=== PATIENT | male | born 1955 | race Caucasian/White ===

== ENCOUNTER → 2019-12-02 17:06 | Outpatient (CLI) | payer OTHER, SELFPAY | PROVIDERS: PCP Internal Medicine; Visit Provider Nurse Practitioner Primary Care | DX: Z03.818 Encounter for observation for suspected exposure to other biological agents ruled out (principal) | CPT/HCPCS: 87635; C9803; U0003 ==

== ENCOUNTER 2023-07-18 21:58 | Inpatient (IN) | payer MEDICARE, OTHER, SELFPAY ==
[2023-07-18] VITALS (12 sets, daily range): BP systolic 124–167; BP diastolic 56–64; PULSE 95–107; RESP 18–39; TEMP 36.8–38.1; O2SAT 85–93; BMI 29.2
--- NOTE | 2023-07-18 22:35 | EKG12_ITS ---
Test Reason : SOB Blood Pressure : / mmHG Vent. Rate : 097 BPM Atrial Rate : 097 BPM P-R Int : 160 ms QRS Dur : 108 ms QT Int : 408 ms P-R-T Axes : 031 020 041 degrees QTc Int : 518 ms Normal sinus rhythm Incomplete right bundle branch block Prolonged QT Abnormal ECG When compared with ECG of 17-JUN-2016 12:02, Vent. rate has increased BY 46 BPM Incomplete right bundle branch block is now Present QT has lengthened Confirmed by MARKUS GARCIA, BRAYAN ([id number]), advertising editor SRINATH CISNEROS ([id number]) on 07/23/2023 11:44:55 AM Referred By: Confirmed By:BRAYAN APARICIO MD
[2023-07-18] MEDS: Ipratropium/Albuterol Sulfate 3 ML AMPUL.NEB INHALATION (22:37)
[2023-07-18] MEDS: Albuterol 2.5 MG/3 ML VIAL.NEB. INHALATION ×2 (22:37)
[2023-07-18] MEDS: Acetaminophen 500 MG Tablet 1000 MG PO (22:40)
[2023-07-18] MEDS: Ceftriaxone 1 GM/50 ML BAG IV (22:54)
[2023-07-18 23:01] LABS: Absolute Lymphocyte Count 0.62 X10^3/uL (0.83-4.51); Absolute Neutrophil Count 27.8 X10^3/uL (2.0-7.7); Basophil# 0.14 X10^3/uL; Basophil% 0.5 % (0-1); Eosinophil# 0.02 X10^3/uL; Eosinophils% 0.1 % (0-5); Hematocrit 38.3 % (40-54); Hemoglobin 13.3 g/dL (13.0-16.5); Lymphocyte # 0.62 X10^3/ul (0.83-4.51); Lymphocyte % 2.1 % (19-41); Mean Corp Hgb Conc 34.7 g/dL (32-36); Mean Corpuscular Hgb 33.2 pg (27.0-32.0); Mean Corpuscular Volume 95.5 fL (80-94); Mean Platelet Vol. 10.3 fl (6.2-12.0); Monocyte# 0.45 X10^3/uL; Monocyte% 1.5 % (0-10); NRBC Flagged by Analyzer 0 % (0-5); Neutrophil # 27.84 X10^3/uL (2.7-7.7); Neutrophil % 94.4 % (47-70); POSITIVE DIFFERENTIAL YES; POSITIVE MORPHOLOGY YES; Platelet Count 355 K/mm3 (150-450); RBC Distribution Width CV 12.5 % (11.6-14.6); RBC Distribution Width SD 44.4 fl (35.1-43.9); Red Blood Count 4.01 M/mm3 (4.6-6.2); White Blood Count 29.5 K/mm3 (4.4-11.0)
[2023-07-18 23:08] LABS: Anion Gap 11 (5-15); BUN 27 mg/dL (7-18); BUN/Creat Ratio 24.8 RATIO (10-20); Calcium,Total 8.1 mg/dL (8.5-10.1); Chloride 93 mmol/L (98-107); Creatinine, Serum 1.09 mg/dL (0.70-1.30); EST Glomerular Filtration Rate 71 mL/min (>60); Est Glom Filt Rate - Afr Amer 86 mL/min (>60); Estimated Creatinine Clearance 76.39 ml/min; Glucose 128 mg/dL (74-106); Magnesium 2.9 mg/dL (1.6-2.6); Potassium 3.3 mmol/L (3.5-5.1); Sodium Level 130 mmol/L (136-145)
--- NOTE | 2023-07-18 23:08 | EX.ED.DYSGE1 ---
HPI History of Present Illness Chief Complaint: Fever Informant: patient and spouse/S.O. Narrative Narrative: Patient is a 68-year-old male with past medical history of hypertension BPH paroxysmal atrial fibrillation currently on Eliquis. He and states they recently traveled to and from [place] by plane and after doing so both picked up a cold. states that she is dealt with her as relatively well and has been having spontaneous improvement. However over the past 10 days the patient's congestion and cough and symptoms seem to be steadily worsening. They went to an urgent care a few days ago and reportedly had COVID and flu test which were negative. Despite giving the symptoms a few more days to improve they have worsened to the point where he has fever and fatigue and shortness of breath and secondary to this he comes in for evaluation Patient denies any history of lung disorder or need for supplemental oxygen [facility] Medical History (Updated 07/19/23 @ 00:[address] Omero Johnson, DO) Atrial fibrillation BPH (benign prostatic hyperplasia) GERD (gastroesophageal reflux disease) Hyperlipidemia Hypertension Inguinal hernia Home Medications tamsulosin 0.4 mg capsule 0.4 mg PO BID 06/05/16 [History Last Taken 06/16/16] amlodipine 10 mg tablet 10 mg PO DAILY 07/18/23 [History Last Taken Unknown] losartan 50 mg tablet 50 mg PO DAILY 07/18/23 [History Last Taken Unknown] tadalafil 20 mg tablet 20 mg PO DAILY PRN BPH 07/18/23 [History Last Taken Unknown] Allergy/AdvReac Type Severity Reaction Status Date / Time No Known Allergies Allergy Verified 07/18/23 21:59 Surgical History (Updated 07/18/23 @ 23:25 by Shine Moeller) H/O cardiac radiofrequency ablation Social History Smoking Status: Former smoker ROS ROS ED Constitutional Constitutional ED: Reports chills and fever(s) Eyes Eyes: Denies change in vision ENT ENT ED: Reports rhinorrhea and sore throat Cardiovascular Cardiovascular: Reports racing heartbeat; Denies chest pain Respiratory/Chest Respiratory/Chest: Reports cough and dyspnea Gastrointestinal Gastrointestinal: Denies abdominal pain, diarrhea, nausea or vomiting Genitourinary Genitourinary ED: Denies dysuria Musculoskeletal Musculoskeletal: Reports myalgias Integumentary Denies rash Neurologic Neurologic: Reports weakness; Denies headache(s) Hematologic/Lymphatic Hematologic/Lymphatic: Reports easy bleeding and easy bruising EXAM Physical Exam Const Vital Signs: 07/18/23 21:59 07/18/23 22:08 07/18/23 22:08 Temperature 99.5 F H 98.2 F Temperature Source Temporal Oral Pulse Rate 102 H 97 Respiratory Rate 18 39 H Respiratory Effort Short of Breath Labored Respiratory Pattern Tachypnea Blood Pressure 159/58 H 167/64 H Blood Pressure Mean 91 98 Pulse Ox 85 93 Oxygen Delivery Method Room Air Non-Rebreather Oxygen Flow Rate (L/min) 15 07/18/23 22:13 07/18/23 22:37 07/18/23 23:03 Temperature 100.6 F H Temperature Source Oral Pulse Rate 107 H 103 H Respiratory Rate 25 H 29 H Respiratory Effort Respiratory Pattern Blood Pressure 164/62 H 133/58 H Blood Pressure Mean 96 83 Pulse Ox 93 92 92 Oxygen Delivery Method Nasal Cannula High Flow High Flow Oxygen Flow Rate (L/min) 6 07/19/23 00:00 07/19/23 00:16 07/18/23 22:25 Temperature 99.3 F H 99.3 F H Temperature Source Oral Pulse Rate 92 92 101 H Respiratory Rate 25 H 26 H 20 H Respiratory Effort Respiratory Pattern Blood Pressure 135/62 H 135/67 H Blood Pressure Mean 86 89 Pulse Ox 94 92 Oxygen Delivery Method High Flow Oxygen Flow Rate (L/min) 07/18/23 22:32 Temperature Temperature Source Pulse Rate Respiratory Rate Respiratory Effort Respiratory Pattern Blood Pressure Blood Pressure Mean Pulse Ox 93 Oxygen Delivery Method High Flow Oxygen Flow Rate (L/min) 10 Positive well nourished and well developed General Appearance ED: well developed; Negative for pallor HEENT Reports dry mucous membranes HEENT Narrative: Mucous membranes are dry and tacky No tongue or lip swelling no oral lesions no airway edema or compromise No findings to suggest infection in the posterior pharynx Mouth ED: Yes dry mucous membranes Mouth: dry mucous membranes Eyes PERRL and EOMs intact bilaterally General Eye ED: Negative for pale conjunctiva or scleral icterus Neck supple and no JVD Neck Narrative: No nuchal rigidity or meningeal signs noted Chest Wall palpation of chest normal Chest Narrative: No bony deformity or crepitance with palpation of the chest wall Resp Resp Narrative: Patient is in respiratory distress with tachypnea and accessory muscle use Breath sounds are severely diminished throughout there is rhonchi noted in the bilateral bases slightly greater on the right Cardio regular rhythm Rate: tachycardic and other Other Details: Tachycardic rate with regular rhythm Radial and carotid pulses are equal and symmetric GI normal to inspection, nondistended, normoactive bowel sounds, non-tender, non-distended and no masses GI Narrative: No voluntary guarding or rigidity No pulsatile mass or fluid wave noted Auscultation: normoactive bowel sounds Palpation: soft Extremity Extremity Narrative: Right lower extremity is slightly swollen when compared to the left however negative Homans' sign bilaterally There is just trace pitting edema bilaterally as well Neuro oriented x3, CN's II-XII intact bilaterally and no sensory deficits noted Sensorium / Orientation: alert Motor Exam: strength 5/5 throughout Psych mental status grossly normal Skin no rashes or lesions noted and No no wounds General Skin Exam: Negative for jaundice or pallor MDM MDM MDM Narrative Medical decision making narrative: Patient arrived to the ER febrile and hypoxic with a room air pulse ox of 85%. He states he does not have a history of lung pathology such as COPD or emphysema nor does he have any need for supplemental oxygen at home. With his report of 10 days of flulike symptoms there is concern that he has developed pneumonia which is leading to acute respiratory failure with hypoxia and sepsis. As he has recent travel to and from [place] and is no longer taking his Eliquis there is also concern for potential pulmonary embolus. There are no overt external findings of heart failure but that is also a differential based on his hypoxia and shortness of breath. He also is not pale and denies any blood per rectum or urine but there is concern for acute blood loss anemia leading to his symptoms. As most likely cause is sepsis from a respiratory source patient had blood cultures obtained and was started on Rocephin and Zithromax as he has high likelihood of community-acquired pneumonia and denies any hospitalization in the last 180 days. Patient was placed on high flow nasal cannula and his pulse ox improved to 92 to 94%. Tylenol was given and his temperature reduced. Laboratory studies confirm septic changes with a white count of 29 as well as elevated lactic acid. CTA revealed no PE or dissection but did show multifocal pneumonia. At this time with persistent hypoxia and septic changes he will need admitted to the hospital for continued treatment. However as he is not hypotensive he does not require a central line or vasopressors History & Record Review Discussion w/independent historian: Patient and Significant other Lab Data Attestation: I reviewed the patient's lab results. Labs: Laboratory Results - last 24 hr 07/18/23 22:11 WBC 29.5 H RBC 4.01 L Hgb 13.3 Hct 38.3 L MCV 95.5 H MCH 33.2 H MCHC 34.7 RDW Std Deviation 44.4 H RDW Coeff of Jose F 12.5 Plt Count 355 MPV 10.3 Immature Gran % (Auto) 1.400 H Neut % (Auto) 94.4 H Lymph % (Auto) 2.1 L Ford % (Auto) 1.5 Eos % (Auto) 0.1 Baso % (Auto) 0.5 Absolute Neuts (auto) 27.8 H Absolute Lymphs (auto) 0.62 L Nucleated RBC % 0 Differential Comment SCANNED Diff Path Review July foll PT 17.2 H INR 1.4 APTT 32.2 Sodium 130 L Potassium 3.3 L Chloride 93 L Carbon Dioxide 26.0 Anion Gap 11 BUN 27 H Creatinine 1.09 Estim Creat Clear Calc 76.39 Est GFR (MDRD) Af Amer 86 Est GFR (MDRD) Non-Af 71 BUN/Creatinine Ratio 24.8 H Glucose 128 H Lactic Acid 2.1 H* Calcium 8.1 L Magnesium 2.9 H B-Natriuretic Peptide 16.2 Management Discussion w/another healthcare provider: Hospitalist Critical Care Time Critical Care Time: Yes Critical care time (excluding procedures): Discussing w/Patient &/or Family/Mechanical Integrity Specialist and - (Critical care time of 31 minutes) Discharge Plan Dx/Rx/DC Orders Clinical Impression: Pneumonia due to respiratory syncytial virus (RSV), Acute and chronic respiratory failure with hypoxia, Sepsis, Benign prostatic hyperplasia, Hypertension Disposition Disposition: Acute Care Hospital [facility]
[2023-07-18 23:12] LABS: Lactic Acid 2.1 mmol/L (0.4-1.9)
[2023-07-18 23:18] LABS: Differential Comment SCANNED; Differential Indicated SCAN CRITERIA MET; International Normalized Ratio 1.4; Prothrombin Time (Protime)PT. 17.2 SECONDS (11.7-14.9)
[2023-07-18 23:19] LABS: Partial Thromboplast Time 32.2 Seconds (24.1-36.2)
[2023-07-18] MEDS: 0.9% Normal Saline (1000mL) 1,000 ML 999 ML IV (23:21)
[2023-07-18] MEDS: Azithromycin 500 MG in Dextrose 5%-Water (250mL Bag) 250 ML 250 MG IV (23:21)
[2023-07-18 23:27] LABS: BNP,B-Type NATRIURETIC PEPTIDE 16.2 pg/mL (0-100)
--- NOTE | 2023-07-18 23:50 | CT_ITS ---
STUDY: CTA CHEST REASON FOR EXAM: Male, 68 years old. hypoxia RADIATION DOSAGE (If Supplied By Facility): CTDIvol = ( 12.25 ) mGy, DLP = ( 517.39 ) mGycm TECHNIQUE: The examination was performed with the intravenous administration of IV 100mL Isovue-370. Post-processing of the angiographic images was performed, with multiplanar reformation and 3D reconstruction. Individualized dose optimization techniques were used for this CT. COMPARISON: No relevant prior comparison study available FINDINGS: Normal enhancement of the main pulmonary artery and right and left pulmonary arteries. Normal enhancement of the bilateral peripheral pulmonary arteries. There is no demonstrated pulmonary embolism. Normal thoracic aorta and visualized great vessels. There is no demonstrated aortic dissection. Normal heart and pericardium. Moderate enlargement of the mediastinal and hilar lymph nodes may represent reactive lymphoid hyperplasia. Normal visualized trachea and bronchi. The lungs are well expanded. Patchy airspace opacities are seen in both lungs suggesting bilateral pneumonia. Normal pleura. Normal chest wall structures. Normal osseous structures. Normal visualized upper abdomen. CT/CTA Chest W/WO Contrast IMPRESSION: Bilateral pneumonia. No demonstrated pulmonary embolism or arterial dissection. Electronically Signed: Ana Kearns MD at 1:23 EDT ,
[2023-07-19] VITALS (37 sets, daily range): BP systolic 113–176; BP diastolic 54–89; PULSE 74–98; RESP 14–41; TEMP 36.3–37.5; O2SAT 88–97; BMI 29.1; BMI 29.2
[2023-07-19] MEDS: 0.9% Normal Saline (1000mL) 1,000 ML 999 ML IV ×2 (00:14)
--- NOTE | 2023-07-19 00:25 | PCM.HP.STD ---
HPI - General General Date of Admission: 07/19/23 Date of Service: 07/19/23 Chief Complaint: Worsening shortness of breath and fatigue HPI Narrative GEORGE ANAND, is a 68 M who presented to [facility] ED on 07/19/2023 with worsening shortness of breath and fatigue. Saw patient at bedside in the ED, was present. Patient was sitting up fairly comfortably in bed but did appear quite fatigued. He had mild increased work of breathing noted on 15 L high flow nasal cannula with oxygen saturations in the low 90s. He had a few episodes of coughing spells with no sputum production during our encounter. He otherwise was answering questions appropriately and conversing normally. Patient is generally in good health at baseline. He and his recently traveled to and from [place] by plane. They both began to experience URI symptoms a few days after arriving back here. She had spontaneous improvement but he continued to have worsening congestion and cough. They went to urgent care few days ago and he reportedly had a negative COVID and flu test there. He was started on Mucinex and sent home. His symptoms continue to worsen and he developed mild fevers with worsening shortness of breath with exertion and came to the ED today for further evaluation. Labs in the ED were significant for WBC count 29, sodium 130, potassium 3.3, chloride 93, creatinine 1.09 (around baseline), lactate 2.1, T. bili 1.50, direct bili 1.04, AST 186, ALT 138, alk phos 131, albumin 1.9, procalcitonin elevated at 3.10. CTA chest showed no PE but did demonstrate a significant bilateral pneumonia with fairly severe airspace disease. Was found to be positive for RSV. Patient remained normotensive and with normal sinus rhythm in the 80s to 90s. However, he did have significant hypoxia on arrival and is requiring high flow nasal cannula as noted above, with respiration rate consistently in the 20s to low 30s. Given his acute hypoxic respiratory failure secondary to both RSV and suspected bacterial pneumonia, patient was admitted for further management. Patient has a history of BPH with obstructive symptoms, is on daily Flomax. He and noted that his urine output has been decreased recently. He denies any suprapubic pain or discomfort. On arrival to the ICU he was found on bladder scan to have about 700 cc of urine in the bladder. He attempted to urinate on his own but only got out about 100 cc, so Garcia catheter was placed with about 625 cc of fairly dark-colored urine out shortly after placement. Importantly, Legionella urine antigen was positive. [facility] Medical History (Updated 07/19/23 @ 05:[address] Geraldo Jackson, DO) Atrial fibrillation BPH (benign prostatic hyperplasia) GERD (gastroesophageal reflux disease) Hyperlipidemia Hypertension Inguinal hernia Home Medications tamsulosin 0.4 mg capsule 0.4 mg PO BID 06/05/16 [History Last Taken 06/16/16] amlodipine 10 mg tablet 10 mg PO DAILY 07/18/23 [History Last Taken Unknown] losartan 50 mg tablet 50 mg PO DAILY 07/18/23 [History Last Taken Unknown] tadalafil 20 mg tablet 20 mg PO DAILY PRN BPH 07/18/23 [History Last Taken Unknown] Allergy/AdvReac Type Severity Reaction Status Date / Time No Known Allergies Allergy Verified 07/18/23 21:59 Surgical History H/O cardiac radiofrequency ablation Social History Smoking Status: Former smoker ROS Constitutional Constitutional: Reports chills, fatigue, fever(s) and malaise Eyes Eyes: Denies change in vision ENT HEENT: Reports nasal congestion, sinus pressure and sore throat Cardiovascular Cardiovascular: Reports dyspnea on exertion; Denies chest pain, rapid heart rate or syncope Respiratory/Chest Respiratory/Chest: Reports cough, shortness of breath at rest and shortness of breath with exertion; Denies productive cough or wheezing Gastrointestinal Gastrointestinal: Reports nausea; Denies abdominal pain, constipation, diarrhea or vomiting Genitourinary Genitourinary: Reports difficulty urinating and urinary hesitancy; Denies dysuria or hematuria Neurologic Neurologic: Denies focal weakness, headache(s), numbness or paresthesias Vital Signs Vital Signs Vital Signs: 07/18/23 21:59 07/18/23 22:08 07/18/23 22:08 Temperature 99.5 F H 98.2 F Temperature Source Temporal Oral Pulse Rate 102 H 97 Respiratory Rate 18 39 H Respiratory Effort Short of Breath Labored Respiratory Pattern Tachypnea Blood Pressure 159/58 H 167/64 H Blood Pressure Mean 91 98 Pulse Ox 85 93 Oxygen Delivery Method Room Air Non-Rebreather Oxygen Flow Rate (L/min) 15 07/18/23 22:13 07/18/23 22:37 07/18/23 23:03 Temperature 100.6 F H Temperature Source Oral Pulse Rate 107 H 103 H Respiratory Rate 25 H 29 H Respiratory Effort Respiratory Pattern Blood Pressure 164/62 H 133/58 H Blood Pressure Mean 96 83 Pulse Ox 93 92 92 Oxygen Delivery Method Nasal Cannula High Flow High Flow Oxygen Flow Rate (L/min) 6 07/19/23 00:00 07/19/23 00:16 07/18/23 22:25 Temperature 99.3 F H 99.3 F H Temperature Source Oral Pulse Rate 92 92 101 H Respiratory Rate 25 H 26 H 20 H Respiratory Effort Respiratory Pattern Blood Pressure 135/62 H 135/67 H Blood Pressure Mean 86 89 Pulse Ox 94 92 Oxygen Delivery Method High Flow Oxygen Flow Rate (L/min) 07/18/23 22:32 Temperature Temperature Source Pulse Rate Respiratory Rate Respiratory Effort Respiratory Pattern Blood Pressure Blood Pressure Mean Pulse Ox 93 Oxygen Delivery Method High Flow Oxygen Flow Rate (L/min) 10 Weight Weight: 95.2 kg Body Mass Index (BMI) 29.2 Physical Exam Const alert and oriented x3 Constitutional Narrative: Pleasant elderly male, sitting up fairly comfortably in bed but is very fatigued appearing, mild increased work of breathing noted on 15 L high flow nasal cannula, otherwise conversing normally. General Appearance: cooperative HEENT normocephalic, head/scalp atraumatic, hearing grossly normal bilaterally and nasal mucous membranes and turbinates normal HEENT Narrative: Dry mucous membranes. Eyes PERRL, EOMs intact bilaterally and conjunctivae normal Neck full ROM Chest inspection of chest normal Resp Resp Narrative: Mild increased work of breathing on 15 L high flow nasal cannula. Moderately decreased breath sounds bilaterally throughout, no wheezing noted. Cardio regular rate, regular rhythm, no murmurs and peripheral pulses 2+ throughout GI normal to inspection, nondistended, normoactive bowel sounds, soft to palpation, non-tender and non-distended Narrative: No suprapubic tenderness noted. Back/Spine normal ROM Extremity normal to inspection, full ROM and no pedal edema Skin no rashes or lesions noted Neuro moves all extremities and no focal motor deficits Speech: speech normal Psych mental status grossly normal Results Lab / Micro Data 07/18/23 22:11 07/18/23 22:11 Labs: Laboratory Results - last 24 hr 07/18/23 22:11: WBC 29.5 H, RBC 4.01 L, Hgb 13.3, Hct 38.3 L, MCV 95.5 H, MCH 33.2 H, MCHC 34.7, RDW Std Deviation 44.4 H, RDW Coeff of Jose F 12.5, Plt Count 355, MPV 10.3, Immature Gran % (Auto) 1.400 H, Neut % (Auto) 94.4 H, Lymph % (Auto) 2.1 L, Coke % (Auto) 1.5, Eos % (Auto) 0.1, Baso % (Auto) 0.5, Absolute Neuts (auto) 27.8 H, Absolute Lymphs (auto) 0.62 L, Nucleated RBC % 0, Differential Comment SCANNED, Diff Path Review July, PT 17.2 H, INR 1.4, APTT 32.2, Sodium 130 L, Potassium 3.3 L, Chloride 93 L, Carbon Dioxide 26.0, Anion Gap 11, BUN 27 H, Creatinine 1.09, Estim Creat Clear Calc 76.39, Est GFR (MDRD) Af Amer 86, Est GFR (MDRD) Non-Af 71, BUN/Creatinine Ratio 24.8 H, Glucose 128 H, Lactic Acid 2.1 H*, Calcium 8.1 L, Magnesium 2.9 H, B-Natriuretic Peptide 16.2 Micro: Microbiology 07/18/23 22:44 Mucosa - Nose SARS-CoV-2, Influenza & RSV (PCR) - Final RSV Assessment & Plan Assessment/Plan (1) Acute hypoxic respiratory failure: (2) Legionella pneumonia: (3) RSV infection: (4) Elevated transaminase level: (5) Urinary retention: (6) Sepsis without septic shock: PLAN: Plan Patient is a 68-year-old male who presented [facility] ED on 07/19/2023 with worsening shortness of breath and fatigue. 1. Acute hypoxic respiratory failure secondary to pneumonia due to Legionella and RSV ? Admit under inpatient status to the ICU. Frequency Checker consulted. Legionella urination positive. Also RSV positive. Not on oxygen at baseline, was requiring up to 15 L high flow nasal cannula in the ED and was placed on BiPAP in the ICU with improvement in work of breathing. Clinical picture does fit well with Legionella pneumonia. Will treat with IV vancomycin and Levaquin for now. MRSA probe pending, if negative can discontinue the vancomycin. Wean supplemental oxygen as able. 2. Sepsis without shock ? Presumed secondary to pneumonia with respiratory failure as noted above. Met sepsis criteria on admission with temp 100.6 F, sinus tachycardia to 102, severe leukocytosis with WBC count 29, lactate 2.1 with presumed respiratory source. Given 3 L of IV normal saline in the ED. Blood pressures notably remained stable throughout but did have improvement in heart rate with IV fluids. Treating with IV vancomycin and Levaquin as noted above. Trend daily CBC. 3. Acute urinary retention, history of BPH with obstructive symptoms ? Patient follows with urology and had a UroLift procedure done within the last few years. Takes Flomax daily at home. Noticed decreased urine output recently, found on bladder scan here to have over 700 cc of urine and was only able to empty about 100 cc on his own so Garcia catheter was placed. Suspect acute retention is primarily secondary to sepsis as noted above. UA was fairly benign. Renal/bladder ultrasound ordered. Continue Garcia catheter for now, can likely plan for voiding trial prior to discharge. 4. Elevated transaminases ? T. bili 1.50, direct bili 1.04, AST 186, ALT 138, alk phos 131 on admit. Suspect secondary to Legionella pneumonia/legionnaires disease. Patient notably with no abdominal pain. Will order right upper quadrant ultrasound for further evaluation. Trend LFTs. Treating infection as noted above. 5. Mild hyponatremia ? Sodium 130 on admit. Suspect secondary to legionnaires disease along with recent poor p.o. intake. Given 3 L of IV normal saline in the ED. Repeat sodium 132. Hold on further IV fluids, encourage p.o. intake. Treating infection as noted above. Chronic medical conditions: ? Hypertension: Holding home amlodipine and losartan. ? History of A-fib s/p ablation: Previously on Eliquis and rate control agents, now off of both. Normal sinus rhythm noted on admit. DVT prophylaxis: Lovenox CODE STATUS: Full code, verified Expected disposition: Home, TBD Total clinical time spent by myself addressing the patient's medical issues, reviewing all the data, and collaborating with patient's care team: 75 minutes. Charges/Coding Visit Charges Inpatient E&M: 32575 Init Hosp L3
--- NOTE | 2023-07-19 00:46 | ED.RN ---
CALLED REPORT TO ICU NURSEDIMAS
--- NOTE | 2023-07-19 01:04 | ED.RN ---
patient coughed up pink sputum, doctor FIORELLA notified. instructed to stop 3rd liter of normal saline
[2023-07-19 01:14] LABS: AST(SGOT) 196 U/L (15-37); Alanine Aminotransfer ALT/SGPT 138 U/L (16-61); Albumin, Serum 1.9 g/dL (3.2-5.0); Alkaline Phosphatase 131 U/L (45-117); Bilirubin, Direct 1.04 mg/dL (0.00-0.30); Globulin 5.2 g/dL (2.2-4.2); Protein, Total 7.1 g/dL (6.4-8.2)
[2023-07-19 01:17] LABS: Osmolality, Serum 279 mOsm/KG (280-301)
[2023-07-19] MEDS: Piperacil/Tazobactam 4.5 GM in 0.9% Normal Saline (100mL MB+) 100 ML IV (01:41)
[2023-07-19] MEDS: 0.9% Saline Lock 10 ML Syringe IV ×4 (01:41→22:53)
[2023-07-19] MEDS: Vancomycin HCl 2,000 MG in 0.9% Normal Saline (500mL Bag) 500 ML 250 MG IV (02:15)
--- NOTE | 2023-07-19 02:21 | US_ITS ---
STUDY: RENAL ULTRASOUND - COMPLETE REASON FOR EXAM: Male, 68 years old. Urinary retention TECHNIQUE: Ultrasound evaluation of the kidneys was performed with real-time and static martin-scale imaging. COMPARISON: None. FINDINGS: RIGHT KIDNEY: Normal location of the right kidney, which is normal in size. The right kidney measures 12.3 cm x 7.5 cm x 6 cm. There is a normal cortex of the right kidney. The renal cortex measures 1.7 cm. There is no right renal mass or cyst. There are no right renal calculi. There is no right hydronephrosis. DISTAL RIGHT URETER: There is non-visualization of the distal right ureter. There is no demonstrated right ureterovesical junction calculus. There is no demonstrated right ureteral jet. LEFT KIDNEY: Normal location of the left kidney, which is normal in size. The left kidney measures 12.2 cm x 7 cm x 7.2 cm. There is a normal cortex of the left kidney. The renal cortex measures 2.1 cm. There is a 1.3 cm x 1.5 cm x 0.9 cm renal cyst. There are no left renal calculi. There is no left hydronephrosis. DISTAL LEFT URETER: There is non-visualization of the distal left ureter. There is no demonstrated left ureterovesical junction calculus. There is no demonstrated left ureteral jet. BLADDER: A Garcia catheter is seen within the urinary bladder. US/Kidney and Bladder IMPRESSION: 1.3 cm x 1.5 cm x 0.9 cm left renal cyst. No evidence of hydronephrosis. Electronically Signed: Arsenio Magana MD at 8:39 EDT ,
--- NOTE | 2023-07-19 02:24 | PCM.RX.CS ---
Consult Antibiotic Management Pharmacy has been consulted to manage selected antibiotic: Vancomycin Type of Intervention Type of Consult: New start Suspected Infection Suspected Infection: Sepsis and Pneumonia Labs Labs: Sodium 130 mmol/L (136-145) L 07/18/23 22:11 Potassium 3.3 mmol/L (3.5-5.1) L 07/18/23 22:11 Chloride 93 mmol/L (98-107) L 07/18/23 22:11 Carbon Dioxide 26.0 mmol/L (21.0-32.0) 07/18/23 22:11 Anion Gap 11 (5-15) 07/18/23 22:11 BUN 27 mg/dL (7-18) H 07/18/23 22:11 Creatinine 1.09 mg/dL (0.70-1.30) 07/18/23 22:11 Est GFR (MDRD) Af Amer 86 mL/min (>60) 07/18/23 22:11 Est GFR (MDRD) Non-Af 71 mL/min (>60) 07/18/23 22:11 BUN/Creatinine Ratio 24.8 RATIO (10-20) H 07/18/23 22:11 Glucose 128 mg/dL (74-106) H 07/18/23 22:11 Microbiology Microbiology: Microbiology 07/18/23 22:44 Mucosa - Nose SARS-CoV-2, Influenza & RSV (PCR) - Final RSV Dosing Weight Weight used for dosin.7 kg Estimated Creatinine Clearance Estimated Creatinine Clearance: 76 Goal Trough Goal Trough: 15-20 mcg/mL Pharmacy Plan for Drug Dosing Pharmacy Plan for Drug Dosing: Pharmacy Service will continue to monitor and adjust dosing as required. Follow-Up Labs Follow-Up Labs: Trough: Vancomycin Date/Time Labs Ordered Labs to be done on [date and time ordered]: 07/20/23 @2941
[2023-07-19 02:51] LABS: Reflex Lactate? Y
[2023-07-19 03:12] LABS: Mucous, Urine 0 SEEN /hpf (<or=2+); Red Blood Cells-Urine 0 SEEN /hpf (0-5); Squamous Epithelial Cells - UA 0 SEEN /hpf (0-5); White Blood Cells 0 SEEN /hpf (0-5)
[2023-07-19] MEDS: levoFLOXacin IV 750 MG/150 ML BAG 100 MG IV ×2 (03:23→20:23)
[2023-07-19 03:34] LABS: Color, Urine Yellow (Yellow); Glucose, Dipstick Normal (Normal); Ketone-Dipstick Negative (Negative); Leukocyte Esterase-Dipstick 25 /ul (Negative); Nitrite-Dipstick Negative (Negative); Occult Blood-Urine 10 /ul (Negative); Protein-Dipstick 30 mg/dl (Negative); Specific Gravity, Urine 1.015 (1.002-1.030); Urine Clarity Clear (Clear); Urine Urobilinogen 8 mg/dl (Normal)
[2023-07-19 03:50] LABS: Osmolality, Urine 705 mOsm/KG
[2023-07-19 03:56] LABS: Urine Sodium < 5 mmol/L (Not Establ.)
[2023-07-19 03:56] LABS: Lactic Acid 1.9 mmol/L (0.4-1.9)
[2023-07-19 03:57] LABS: Urine Bilirubin Dipstick 1 mg/dL (Negative)
[2023-07-19 04:05] LABS: Bacteria 1+ /hpf (None Seen)
[2023-07-19 04:19] LABS: Absolute Lymphocyte Count 0.59 X10^3/uL (0.83-4.51); Absolute Neutrophil Count 22.6 X10^3/uL (2.0-7.7); Basophil# 0.02 X10^3/uL; Basophil% 0.1 % (0-1); Hematocrit 33.7 % (40-54); Hemoglobin 11.8 g/dL (13.0-16.5); Lymphocyte # 0.59 X10^3/ul (0.83-4.51); Lymphocyte % 2.5 % (19-41); Mean Corpuscular Hgb 33.1 pg (27.0-32.0); Mean Corpuscular Volume 94.7 fL (80-94); Mean Platelet Vol. 9.9 fl (6.2-12.0); Monocyte# 0.26 X10^3/uL; Monocyte% 1.1 % (0-10); NRBC Flagged by Analyzer 0 % (0-5); Neutrophil # 22.63 X10^3/uL (2.7-7.7); Neutrophil % 95.1 % (47-70); POSITIVE DIFFERENTIAL YES; POSITIVE MORPHOLOGY YES; Platelet Count 294 K/mm3 (150-450); RBC Distribution Width CV 12.5 % (11.6-14.6); RBC Distribution Width SD 43.7 fl (35.1-43.9); Red Blood Count 3.56 M/mm3 (4.6-6.2); White Blood Count 23.8 K/mm3 (4.4-11.0)
[2023-07-19 04:44] LABS: Anion Gap 8 (5-15); BUN 23 mg/dL (7-18); BUN/Creat Ratio 25.2 RATIO (10-20); Calcium,Total 7.3 mg/dL (8.5-10.1); Chloride 99 mmol/L (98-107); Creatinine, Serum 0.91 mg/dL (0.70-1.30); EST Glomerular Filtration Rate 88 mL/min (>60); Est Glom Filt Rate - Afr Amer 106 mL/min (>60); Estimated Creatinine Clearance 91.27 ml/min; Glucose 145 mg/dL (74-106); Potassium 3.3 mmol/L (3.5-5.1); Sodium Level 132 mmol/L (136-145)
--- NOTE | 2023-07-19 05:21 | US_ITS ---
HISTORY: RUQ ultrasound for elevated LFTs. TECHNIQUE: Alonso scale and color doppler imaging was performed of the right upper quadrant. 69 images. COMPARISON: None. FINDINGS: LIVER: 19.2 cm in length. Heterogeneous echotexture without focal lesion demonstrated. No intrahepatic ductal dilatation. Mild free fluid adjacent to the liver. MAIN PORTAL VEIN: Patent with hepatopedal flow. COMMON BILE DUCT: 6 mm in diameter. GALLBLADDER: No gallstones. 3 mm wall thickness, within normal limits. Mild pericholecystic fluid. Sonographic Hector sign negative. PANCREAS: Not well visualized due to overlying bowel gas. RIGHT KIDNEY: Refer to renal ultrasound same day. US/Abdomen Limited IMPRESSION: Hepatomegaly with hepatic steatosis. Mild ascites. No sonographic evidence of cholelithiasis. Electronically Signed: Radha Alcaraz MD at 8:48 EDT ,
[2023-07-19 05:33] LABS: Differential Indicated SCAN CRITERIA MET
[2023-07-19] MEDS: Potassium Chloride Oral Tablet 20 MEQ 40 MEQ PO (05:34)
[2023-07-19 05:38] LABS: Differential Comment SCANNED; Target Cells 1+; Toxic Granulation 1+; Vacuolated Cells 1+
--- NOTE | 2023-07-19 08:13 | PN.HOSP_ITS ---
Reason for Visit Reason for Visit: Diagnoses Sepsis, unspecified organism (07/19/23) Legionnaires' disease (07/19/23) Other specified viral diseases (07/19/23) Acute respiratory failure with hypoxia (07/19/23) Retention of urine, unspecified (07/19/23) Elevation of levels of liver transaminase levels (07/19/23) Subjective Subjective Feeling better. Oxygen able to be weaned down to 6 L. Objective Data Objective Data Vital Signs: Vital Signs Temp Pulse Resp BP Pulse Ox O2 Del Method O2 Flow Rate 37.1 C 82 36 H 137/65 H 94 High Flow 13 07/19/23 05:00 07/19/23 07:00 07/19/23 07:00 07/19/23 07:00 07/19/23 07:00 07/19/23 07:00 07/19/23 07:00 FiO2 40 07/19/23 04:34 Oxygen Flow Rate (L/min) 13 Oxygen Delivery Method High Flow Weight: 94.7 kg Body Mass Index (BMI) 29.2 Intake & Output: Intake and Output for Last 24 Hours 07/17/23 07/18/23 07/19/23 23:59 23:59 23:59 Intake Total 50 / 50 3027.45 / 3027.45 Output Total 1050 / 1050 Balance 50 / 50 1976.45 / 1976.45 Lab / Micro Data 07/19/23 04:11 07/19/23 04:11 Labs: Laboratory Results - last 24 hr 07/18/23 22:11: WBC 29.5 H, RBC 4.01 L, Hgb 13.3, Hct 38.3 L, MCV 95.5 H, MCH 33.2 H, MCHC 34.7, RDW Std Deviation 44.4 H, RDW Coeff of Jose F 12.5, Plt Count 355, MPV 10.3, Immature Gran % (Auto) 1.400 H, Neut % (Auto) 94.4 H, Lymph % (Auto) 2.1 L, [place] % (Auto) 1.5, Eos % (Auto) 0.1, Baso % (Auto) 0.5, Absolute Neuts (auto) 27.8 H, Absolute Lymphs (auto) 0.62 L, Nucleated RBC % 0, Differential Comment SCANNED, Diff Path Review July, PT 17.2 H, INR 1.4, APTT 32.2, Sodium 130 L, Potassium 3.3 L, Chloride 93 L, Carbon Dioxide 26.0, Anion Gap 11, BUN 27 H, Creatinine 1.09, Estim Creat Clear Calc 76.39, Est GFR (MDRD) Af Amer 86, Est GFR (MDRD) Non-Af 71, BUN/Creatinine Ratio 24.8 H, Glucose 128 H, Lactic Acid 2.1 H*, Calcium 8.1 L, Magnesium 2.9 H, Total Bilirubin 1.50 H, Direct Bilirubin 1.04 H, AST 196 H, ALT 138 H, Alkaline Phosphatase 131 H, B-Natriuretic Peptide 16.2, Total Protein 7.1, Albumin 1.9 L, Globulin 5.2 H, Procalcitonin 3.10 H 07/18/23 23:05: Serum Osmolality 279 L 07/19/23 03:03: Urine Color Yellow, Urine Clarity Clear, Urine pH 6.0, Ur Specific [place] 1.015, Urine Protein 30 H, Urine Glucose (UA) Normal, Urine Ketones Negative, Urine Occult Blood 10 H, Urine Nitrite Negative, Urine Bilirubin 1 H, Urine Urobilinogen 8 H, Ur Leukocyte Esterase 25 H, Urine RBC 0 SEEN, Urine WBC 0 SEEN, Ur Squamous Epith Cells 0 SEEN, Urine Bacteria 1+, Urine Mucus 0 SEEN, Urine Osmolality 705, Ur Random Sodium < 5 07/19/23 03:17: Lactic Acid 1.9 07/19/23 04:11: WBC 23.8 H, RBC 3.56 L, Hgb 11.8 L, Hct 33.7 L, MCV 94.7 H, MCH 33.1 H, MCHC 35.0, RDW Std Deviation 43.7, RDW Coeff of Jose F 12.5, Plt Count 294, MPV 9.9, Immature Gran % (Auto) 1.200 H, Neut % (Auto) 95.1 H, Lymph % (Auto) 2.5 L, [place] % (Auto) 1.1, Eos % (Auto) 0.0, Baso % (Auto) 0.1, Absolute Neuts (auto) 22.6 H, Absolute Lymphs (auto) 0.59 L, Nucleated RBC % 0, Differential Comment SCANNED, Toxic Granulation 1+, Toxic Vacuolation 1+, Target Cells 1+, Sodium 132 L, Potassium 3.3 L, Chloride 99, Carbon Dioxide 25.0, Anion Gap 8, BUN 23 H, Creatinine 0.91, Estim Creat Clear Calc 91.27, Est GFR (MDRD) Af Amer 106, Est GFR (MDRD) Non-Af 88, BUN/Creatinine Ratio 25.2 H, Glucose 145 H, Calcium 7.3 L Micro: Microbiology 07/18/23 22:44 Mucosa - Nasopharyngeal Respiratory Panel (PCR) - Final RSV B 07/19/23 01:30 Nasal Secretion MRSA (PCR) - Final 07/19/23 03:03 Urine, Clean Catch Legionella Antigen - Final Legionella Antigen 07/19/23 03:03 Urine, Clean Catch Streptococcus pneumoniae Antigen (M - Final 07/18/23 22:44 Mucosa - Nose SARS-CoV-2, Influenza & RSV (PCR) - Final RSV Radiography Diagnostic Testing: Radiology Impression Chest CTA 07/18/23 23:50 IMPRESSION: Bilateral pneumonia. No demonstrated pulmonary embolism or arterial dissection. Electronically Signed: Ana Kearns MD at 1:23 EDT , Physical Exam Const alert and oriented x3 Constitutional Narrative: Listless. General Appearance: cooperative HEENT normocephalic, head/scalp atraumatic, hearing grossly normal bilaterally and n rashad mucous membranes and turbinates normal Eyes EOMs intact bilaterally and conjunctivae normal Neck full ROM Chest inspection of chest normal Resp Resp Narrative: Coarse breath sounds bilaterally Cardio regular rate, regular rhythm, no murmurs and peripheral pulses 2+ throughout GI normal to inspection, nondistended, normoactive bowel sounds, soft to palpation, non-tender and non-distended Back/Spine normal ROM Extremity normal to inspection, full ROM and no pedal edema Skin no rashes or lesions noted Neuro moves all extremities and no focal motor deficits Speech: speech normal Psych mental status grossly normal Assessment & Plan Assessment/Plan (1) Acute hypoxic respiratory failure: (2) Legionella pneumonia: (3) RSV infection: (4) Elevated transaminase level: (5) Urinary retention: (6) Sepsis without septic shock: PLAN: Plan Acute hypoxic respiratory failure * pulse ox in ED documentation of 85% on room air. Now on high-flow oxygen * 2/2 RSV and legionella pneumonia * BDs, PEP. Pulm consult * wean oxygen as tolerated Legionella pneumonia * CTA shows diffuse, multilobar pneumonia. May have started as RSV, then may have gotten secondarily infected * Follow up sputum culture * Continue levofloxacin and vancomycin for now. If Scx negative, can likely drop the vancomycin. * Discussed with the patient's about the potential source. It is unclear but they did stay with their son for extended period of time. She got sick but got over that illness relatively quickly. Did advise for them to have their son have his air conditioning system looked at by a professional to see if that could have been a source. Sepsis * POA: Met sepsis criteria on admission with temp 100.6 F, sinus tachycardia to 102, severe leukocytosis with WBC count 29, lactate 2.1 with presumed respiratory source. Given 3 L of IV normal saline in the ED. Blood pressures notably remained stable throughout but did have improvement in heart rate with IV fluids. Treating with IV vancomycin and Levaquin as noted above. Trend daily CBC. * 2/2 pneumonia * BCx, SCx pending. Acute urinary retention, history of BPH with obstructive symptoms * Patient follows with urology and had a UroLift procedure done within the last few years. Takes Flomax daily at home. Noticed decreased urine output recently, found on bladder scan here to have over 700 cc of urine and was only able to empty about 100 cc on his own so Garcia catheter was placed. Suspect acute retention is primarily secondary to sepsis as noted above. UA was fairly benign. Renal/bladder ultrasound ordered. Continue Garcia catheter for now, can likely plan for voiding trial prior to discharge. * Patient was to have follow-up with urology on the but that allowed to be rescheduled. Elevated transaminases * Admission: T. bili 1.50, direct bili 1.04, AST 186, ALT 138, alk phos 131 on admit. * Suspect secondary to Legionella pneumonia/legionnaires disease. Patient notably with no abdominal pain. * Check right upper quadrant ultrasound for further evaluation. * Monitor Hyponatremia * Improving * Likely 2/2 legionella pneumonia Chronic medical conditions: ? Hypertension: Holding home amlodipine and losartan. ? History of A-fib s/p ablation: Previously on Eliquis and rate control agents, now off of both. Normal sinus rhythm noted on admit. DVT prophylaxis: Lovenox CODE STATUS: Full code, verified Expected disposition: Home, TBD Charges/Coding Visit Charges Inpatient E&M: 18800 Subs Hosp L3
[2023-07-19] MEDS: guaiFENesin 1,200 MG Tablet 1200 MG PO ×2 (08:57→20:24)
[2023-07-19] MEDS: Tamsulosin HCl 0.4 MG Capsule PO (08:57)
[2023-07-19] MEDS: Heparin Injection (Vial) 5,000 UNIT/ML VIAL 5000 UNIT SC ×2 (08:57→20:23)
--- NOTE | 2023-07-19 11:11 | PCMCONS.TICU ---
HPI Consult Data Date of Consult: 07/19/23 HPI Narrative Reason for Consultation: Acute hypoxemic respiratory failure HPI Narrative: 68M PMH BPH, HTN who presented over night with worsening shortness of breath and fatigue. Saw patient at bedside in the ED, was present. Both he and his developed flu/cold-like symptoms a few days earlier after recently returning from travel to [place]. Pt's improved but pt continued to have worsening congestion and cough. Reportedly negative COVID and flu test at urgent care center at which time he was started on Mucinex and sent home. He developed mild fevers with worsening shortness of breath and came to the ED where he was noted to be hypoxemic, septic & CTA chest showed significant bilateral pneumonia with severe airspace disease and was neg for PE. He tested positive for RSV and Legionella antigen in the urine was also positive. He required placement of Garcia catheter due to acute urinary obstruction (he is on daily Flomax). He was ultimately admitted to the ICU on HFNC & pulmonary/critical care was consulted earlier this AM for on-going management & recommendations. [facility] Medical History (Updated 07/19/23 @ 05:[address] Geraldo Jackson, DO) Atrial fibrillation BPH (benign prostatic hyperplasia) GERD (gastroesophageal reflux disease) Hyperlipidemia Hypertension Inguinal hernia Home Medications tamsulosin 0.4 mg capsule 0.4 mg PO BID 06/05/16 [History Last Taken 06/16/16] amlodipine 10 mg tablet 10 mg PO DAILY 07/18/23 [History Last Taken Unknown] losartan 50 mg tablet 50 mg PO DAILY 07/18/23 [History Last Taken Unknown] tadalafil 20 mg tablet 20 mg PO DAILY PRN BPH 07/18/23 [History Last Taken Unknown] Allergy/AdvReac Type Severity Reaction Status Date / Time No Known Allergies Allergy Verified 07/18/23 21:59 Surgical History H/O cardiac radiofrequency ablation Social History Smoking Status: Former smoker ROS ROS Narrative Full 12 point ROS completed and neg unless stated in HPI above Objective Data Objective Data Vital Signs: Vital Signs Last response Temperature 37.5 C H 07/19/23 08:00 Temperature Source Oral 07/19/23 08:00 Pulse Rate 78 07/19/23 11:00 Respiratory Rate 28 H 07/19/23 11:00 Respiratory Effort Non-Labored, Short of Breath 07/19/23 08:45 Respiratory Depth Shallow 07/19/23 08:45 Respiratory Pattern Normal 07/19/23 08:45 Blood Pressure 127/57 H 07/19/23 11:00 Blood Pressure Mean 80 07/19/23 11:00 Blood Pressure Source Monitor 07/19/23 11:00 Blood Pressure Position Semi-Fowlers 07/19/23 11:00 Blood Pressure Location Left Arm 07/19/23 11:00 Pulse Ox 94 07/19/23 11:00 Oxygen Delivery Method Nasal Cannula 07/19/23 11:00 Oxygen Flow Rate (L/min) 6 07/19/23 11:00 Fraction of Inspired Oxygen (FIO2) 40 07/19/23 10:06 I&O: I&O Last 24 Hours 07/18/23 07/18/23 07/19/23 11:59 23:59 11:59 Intake Total 50 / 50 3027.45 / 3027.45 Output Total 1050 / 1050 Balance 50 / 50 1977.45 / 1976.45 I&O: Total Stay 07/18/23 21:58 thru 07/19/23 10:00 Intake Total 3077.45 Output Total 1050 Balance 2026.45 Current Meds Ordered / Administered: Current meds ordered / Administered Generic Name Dose Route Start Last Admin Trade Name Freq PRN Reason Stop Dose Admin Acetaminophen 650 mg 07/19/23 01:19 Acetaminophen 325 Mg Tablet PO Q6H PRN PRN Pain 1-10 Or Fever>100.7 Albuterol Sulfate 2.5 mg 07/19/23 08:21 Albuterol 2.5 Mg/3 Ml Vial.Neb. INHALATION Q2H PRN PRN SHORTNESS OF BREATH Albuterol/Ipratropium 3 ml 07/19/23 10:00 Ipratropium/Albuterol Sulfate 3 Ml Ampul.Neb INHALATION Q4HWA HAILEY Guaifenesin 1,200 mg 07/19/23 10:00 07/19/23 08:57 Guaifenesin 1,200 Mg Tablet PO 1,200 mg BID HAILEY Administration Heparin Sodium (Porcine) 5,000 unit 07/19/23 10:00 07/19/23 08:57 Heparin Injection (Vial) 5,000 Unit/Ml Vial SC 5,000 unit Q12 HAILEY Administration Sodium Chloride 250 mls @ 15 mls/hr 07/19/23 01:33 IV .[id number] PRN Additional IVPB Infusion Sodium Chloride 250 mls @ 15 mls/hr 07/19/23 01:33 IV .[id number] PRN Saline Flush Levofloxacin 750 mg in 150 mls @ 100 mls/hr 07/19/23 03:15 07/19/23 04:54 Levaquin Iv IV Infused 2200 HAILEY Infusion Ondansetron HCl 4 mg 07/19/23 01:19 Ondansetron 4 Mg/2 Ml Vial IV Q8H PRN PRN NAUSEA/VOMITING Sodium Chloride 10 - 40 ml 07/19/23 01:33 07/19/23 05:35 0.9% Saline Lock 10 Ml Syringe IV 10 ml UD PRN Administration SALINE FLUSH Tamsulosin HCl 0.4 mg 07/19/23 10:00 07/19/23 08:57 Tamsulosin Hcl 0.4 Mg Capsule PO 0.4 mg DAILY HAILEY Administration Physical Exam Narrative General: Well developed, in no distress, +HFNC HEENT: anicteric Sclera, nl nose; supple neck, no masses Cardiovascular: S1/S2; No rubs, gallops; no displaced PM Respiratory: BL crackles, no wheezes or rhonchi Abdominal: Non-tender; Non distended; hypoBS x 4; No Hepatosplenomegaly Extremities: Warm, well perfused; No clubbing, cyanosis; capillary refill < 2 sec Skin: intact, no rashes Neurological: fatigued; no gross deficits appreciated Lab / Micro Data 07/19/23 04:11 07/19/23 04:11 Labs: Laboratory Results - last 24 hr 07/18/23 22:11: WBC 29.5 H, RBC 4.01 L, Hgb 13.3, Hct 38.3 L, MCV 95.5 H, MCH 33.2 H, MCHC 34.7, RDW Std Deviation 44.4 H, RDW Coeff of Jose F 12.5, Plt Count 355, MPV 10.3, Immature Gran % (Auto) 1.400 H, Neut % (Auto) 94.4 H, Lymph % (Auto) 2.1 L, [place] % (Auto) 1.5, Eos % (Auto) 0.1, Baso % (Auto) 0.5, Absolute Neuts (auto) 27.8 H, Absolute Lymphs (auto) 0.62 L, Nucleated RBC % 0, Differential Comment SCANNED, Diff Path Review July, PT 17.2 H, INR 1.4, APTT 32.2, Sodium 130 L, Potassium 3.3 L, Chloride 93 L, Carbon Dioxide 26.0, Anion Gap 11, BUN 27 H, Creatinine 1.09, Estim Creat Clear Calc 76.39, Est GFR (MDRD) Af Amer 86, Est GFR (MDRD) Non-Af 71, BUN/Creatinine Ratio 24.8 H, Glucose 128 H, Lactic Acid 2.1 H*, Calcium 8.1 L, Magnesium 2.9 H, Total Bilirubin 1.50 H, Direct Bilirubin 1.04 H, AST 196 H, ALT 138 H, Alkaline Phosphatase 131 H, B-Natriuretic Peptide 16.2, Total Protein 7.1, Albumin 1.9 L, Globulin 5.2 H, Procalcitonin 3.10 H 07/18/23 23:05: Serum Osmolality 279 L 07/19/23 03:03: Urine Color Yellow, Urine Clarity Clear, Urine pH 6.0, Ur Specific [place] 1.015, Urine Protein 30 H, Urine Glucose (UA) Normal, Urine Ketones Negative, Urine Occult Blood 10 H, Urine Nitrite Negative, Urine Bilirubin 1 H, Urine Urobilinogen 8 H, Ur Leukocyte Esterase 25 H, Urine RBC 0 SEEN, Urine WBC 0 SEEN, Ur Squamous Epith Cells 0 SEEN, Urine Bacteria 1+, Urine Mucus 0 SEEN, Urine Osmolality 705, Ur Random Sodium < 5 07/19/23 03:17: Lactic Acid 1.9 07/19/23 04:11: WBC 23.8 H, RBC 3.56 L, Hgb 11.8 L, Hct 33.7 L, MCV 94.7 H, MCH 33.1 H, MCHC 35.0, RDW Std Deviation 43.7, RDW Coeff of Jose F 12.5, Plt Count 294, MPV 9.9, Immature Gran % (Auto) 1.200 H, Neut % (Auto) 95.1 H, Lymph % (Auto) 2.5 L, [place] % (Auto) 1.1, Eos % (Auto) 0.0, Baso % (Auto) 0.1, Absolute Neuts (auto) 22.6 H, Absolute Lymphs (auto) 0.59 L, Nucleated RBC % 0, Differential Comment SCANNED, Toxic Granulation 1+, Toxic Vacuolation 1+, Target Cells 1+, Sodium 132 L, Potassium 3.3 L, Chloride 99, Carbon Dioxide 25.0, Anion Gap 8, BUN 23 H, Creatinine 0.91, Estim Creat Clear Calc 91.27, Est GFR (MDRD) Af Amer 106, Est GFR (MDRD) Non-Af 88, BUN/Creatinine Ratio 25.2 H, Glucose 145 H, Calcium 7.3 L Micro: Microbiology 07/18/23 22:44 Mucosa - Nasopharyngeal Respiratory Panel (PCR) - Final RSV B 07/19/23 01:30 Nasal Secretion MRSA (PCR) - Final 07/19/23 03:03 Urine, Clean Catch Legionella Antigen - Final Legionella Antigen 07/19/23 03:03 Urine, Clean Catch Streptococcus pneumoniae Antigen (M - Final 07/18/23 22:44 Mucosa - Nose SARS-CoV-2, Influenza & RSV (PCR) - Final RSV Imaging Radiology Impression Chest CTA 07/18/23 23:50 IMPRESSION: Bilateral pneumonia. No demonstrated pulmonary embolism or arterial dissection. Electronically Signed: Ana Kearns MD at 1:23 EDT , Assessment and Plan . Assessment and plan: #Acute hypoxemic respiratory failure #Sepsis #Legionella pneumonia #RSV positive #Lactic acidosis #Hyponatremia #Hypokalemia #Elevated LFTs #BPH with acute urinary retention -Cont HFNC; titrate to keep sats ~90-92%; encourage upright positioning/mobilization as tolerated into chair/IS use to minimize atelectasis -SP fluid resuscitation, lactate improved, PRN NEpi to keep MAP > 65 -SP initial broad spectrum emp IV Abx now transitioned to levofloxacin, F/U Cx -If worsening clinical condition/O2 req would start corticosteroid therapy but at this time will monitor closely given stabilization of his O2 req at 6L -TTE to eval for cardiogenic component -Trend LFTs; can check abd US if not improving -Strict I/Os, monitor lytes PO diet Heparin Guarded prognosis Critical Care Time: 60 min The entirety of this encounter was done via Telemedicine
[2023-07-19] MEDS: Ipratropium/Albuterol Sulfate 3 ML AMPUL.NEB INHALATION ×3 (11:13→19:02)
--- NOTE | 2023-07-19 11:59 | ECHOCS_ITS ---
Reason For Study: DYSPNEA Procedure This was a 2D Doppler, Color Flow transthoracic echocardiogram. The study was technically difficult. Contrast injection was performed. Patient was scanned in supine position during reflux assessment. Exam performed portable in ICU/CCU. Left Ventricle Normal LV size. The estimated ejection fraction is 60 %. No evidence for diastolic dysfunction. No regional wall motion abnormalities noted. Right Ventricle Normal RV size. Normal systolic function. Atria The left atrium is mildly enlarged. Normal right atrium. No doppler evidence for ASD. Mitral Valve There is no mitral valve stenosis. Trivial mitral valve insufficiency. Tricuspid Valve There is no tricuspid stenosis. Unable to estimate RV systolic pressure due to insufficient tricuspid regurgitant envelope. Trivial tricuspid valve insufficiency. Aortic Valve Trisinus/trileaflet aortic valve. There is no aortic stenosis. No aortic valve insufficiency. Pulmonic Valve There is no pulmonic valvular stenosis. No pulmonic valve insufficiency. Great Vessels Normal aortic root. Pericardium/Pleural No pericardial effusion. Medication Diluted definity 2ml given slow IV push to enhance endocardial definition. MMode/2D Measurements & Calculations LVIDd: 5.0 cm IVSd: 1.1 cm LVOT diam: 2.2 cm LVIDs: 2.7 cm LVPWd: 0.89 cm RVDd: 3.6 cm FS: 47.4 % LVOT area: 3.7 cm2 Ao root diam: 3.2 cm LAV(MOD-bp): 52.5 ml LVAd ap4: 38.8 cm2 LAV(MOD-bp) Indexed: 48.1 ml/m2 LVLd ap4: 8.3 cm LAV(MOD-sp2): 46.2 ml EDV(MOD-sp4): 148.2 ml LAV(MOD-sp4): 58.0 ml EDV(sp4-el): 153.9 ml LVAs ap4: 23.3 cm2 LVLs ap4: 7.5 cm ESV(MOD-sp4): 60.4 ml ESV(sp4-el): 61.4 ml EF(MOD-sp4): 59.2 % EF(sp4-el): 60.1 % LVAd ap2: 38.5 cm2 SV(MOD-sp4): 87.8 ml SV(MOD-sp2): 79.0 ml LVLd ap2: 8.7 cm EDV(MOD-sp2): 137.0 ml EDV(sp2-el): 144.2 ml LVAs ap2: 22.7 cm2 LVLs ap2: 7.1 cm ESV(MOD-sp2): 58.0 ml ESV(sp2-el): 61.1 ml EF(MOD-sp2): 57.7 % SV(sp4-el): 92.5 ml LA dimension(2D): 4.7 cm LA A4 area: 19.5 cm2 RA A4 area: 14.1 cm2 TAPSE: 1.6 cm Time Measurements MV dec time: 0.22 sec Doppler Measurements & Calculations MV E max jose de jesus: 92.0 cm/sec Lat Peak E' Jose De Jesus: 11.8 cm/sec Med Peak E' Jose De Jesus: 10.1 cm/sec MV A max jose de jesus: 67.9 cm/sec E/E' lat: 7.8 E/E' med: 9.1 MV E/A: 1.4 Ao V2 max: 133.7 cm/sec LV V1 max: 98.4 cm/sec MV dec slope: 417.1 cm/sec2 Ao max P.1 mmHg LV V1 max P.9 mmHg Ao V2 mean: 86.3 cm/sec LV V1 mean P.3 mmHg Ao mean P.3 mmHg LV V1 mean: 72.4 cm/sec Ao V2 VTI: 21.4 cm LV V1 VTI: 18.4 cm AV (velocity ratio): 0.86 VIJAY(I,D): 3.2 cm2 VIJAY(V,D): 2.8 cm2 SV(LVOT): 68.8 ml PA V2 max: 110.6 cm/sec PA max PG (full): 2.0 mmHg ECHO/Echo Complete W/ Contrast Interpretation Summary The estimated ejection fraction is 60 %. No evidence for diastolic dysfunction. Trivial mitral valve insufficiency. The left atrium is mildly enlarged. Ordering Physician: Praneeth Thomas Performed By: Hanna Cota RDCS
[2023-07-19] MEDS: LORazepam 2 MG/ML Syringe 0.5 MG IV (22:53)
[2023-07-20] VITALS (33 sets, daily range): BP systolic 124–167; BP diastolic 55–70; PULSE 65–96; RESP 22–42; TEMP 37.1–38.2; O2SAT 87–97; BMI 29.1
[2023-07-20 05:32] LABS: Absolute Lymphocyte Count 0.75 X10^3/uL (0.83-4.51); Absolute Neutrophil Count 19.9 X10^3/uL (2.0-7.7); Basophil# 0.11 X10^3/uL; Basophil% 0.5 % (0-1); Eosinophil# 0.01 X10^3/uL; Hematocrit 34.1 % (40-54); Hemoglobin 11.6 g/dL (13.0-16.5); Lymphocyte # 0.75 X10^3/ul (0.83-4.51); Lymphocyte % 3.5 % (19-41); Mean Corpuscular Hgb 32.5 pg (27.0-32.0); Mean Corpuscular Volume 95.5 fL (80-94); Mean Platelet Vol. 10.2 fl (6.2-12.0); Monocyte# 0.34 X10^3/uL; Monocyte% 1.6 % (0-10); NRBC Flagged by Analyzer 0 % (0-5); Neutrophil # 19.91 X10^3/uL (2.7-7.7); Neutrophil % 92.9 % (47-70); POSITIVE MORPHOLOGY YES; Platelet Count 272 K/mm3 (150-450); RBC Distribution Width CV 12.7 % (11.6-14.6); RBC Distribution Width SD 45.1 fl (35.1-43.9); Red Blood Count 3.57 M/mm3 (4.6-6.2); White Blood Count 21.4 K/mm3 (4.4-11.0)
[2023-07-20 05:59] LABS: ALB/GLOB Ratio 0.3 RATIO (0.9-2.4); AST(SGOT) 132 U/L (15-37); Alanine Aminotransfer ALT/SGPT 93 U/L (16-61); Albumin, Serum 1.3 g/dL (3.2-5.0); Alkaline Phosphatase 102 U/L (45-117); Anion Gap 7 (5-15); BUN 19 mg/dL (7-18); BUN/Creat Ratio 26.2 RATIO (10-20); Calcium,Total 7.9 mg/dL (8.5-10.1); Chloride 99 mmol/L (98-107); Creatinine, Serum 0.73 mg/dL (0.70-1.30); EST Glomerular Filtration Rate 114 mL/min (>60); Est Glom Filt Rate - Afr Amer 138 mL/min (>60); Estimated Creatinine Clearance 103.68 ml/min; Globulin 4.3 g/dL (2.2-4.2); Glucose 132 mg/dL (74-106); Potassium 3.3 mmol/L (3.5-5.1); Protein, Total 5.6 g/dL (6.4-8.2); Sodium Level 132 mmol/L (136-145)
[2023-07-20 06:04] LABS: Differential Indicated SCAN CRITERIA MET
[2023-07-20 06:58] LABS: Differential Comment SCANNED
--- NOTE | 2023-07-20 07:01 | PCM.PN.INT ---
Assessment & Plan Assessment/Plan (1) Acute hypoxic respiratory failure: (2) Legionella pneumonia: (3) Sepsis: PLAN: Plan RECOMMENDATIONS: 1. Continue supplemental oxygen to maintain saturations at or above 90%. If needed, heated high flow oxygen can be initiated. 2. Continue antimicrobial therapy. 3. Echocardiogram is pending. 4. Continue bronchodilator therapy. 5. Continue appropriate DVT prophylaxis. 6. Check BNP. IMPRESSIONS: 1. Acute hypoxemic respiratory failure Appears multifactorial and related to RSV and superimposed Legionella pneumonia. The patient has evidence of bilateral airspace disease on chest imaging. Oxygen status remains quite tenuous. There was no pulmonary embolism identified. At this time, plan to continue supportive care with supplemental oxygen and antimicrobials as ordered. Surface echocardiogram is currently pending. If needed, the patient can be transition to heated high flow oxygen to maintain saturations. In addition, will consider diuresis if clinically indicated. 2. History of BPH/elevated transaminases/hypertension/history of atrial fibrillation Complicates care, management, recovery and prognosis. Continue supportive care as noted above. This note was generated with [employer] dictation software. It may contain incorrect words, spelling, and punctuation that were not noted in checking the note before signing. Subjective Subjective The patient was seen and examined at the bedside this morning. Events from the last 24 hours have been reviewed. The patient did have some low-grade fevers overnight but remains otherwise hemodynamically stable. The patient is currently maintaining appropriate oxygen saturations on 8 L/min high flow O2. The patient did not tolerate BiPAP therapy overnight. White blood cell count remains elevated at 21,000. Chemistry profile was notable for a potassium of 3.3. Objective Data Objective Data The patient's most recent lab work, culture data and imaging studies have all been personally reviewed. Respiratory viral panel was positive for RSV. Urinary Legionella antigen was positive. Vital Signs: Vital Signs Temp Pulse Resp BP Pulse Ox O2 Del Method O2 Flow Rate 98.8 F 78 34 H 153/68 H 94 High Flow 8 07/20/23 04:00 07/20/23 06:58 07/20/23 06:58 07/20/23 06:58 07/20/23 06:58 07/20/23 06:58 07/20/23 06:58 FiO2 40 07/19/23 22:00 Oxygen Flow Rate (L/min) 8 Oxygen Delivery Method High Flow Weight: 208 lb 1.862 oz Body Mass Index (BMI) 29.1 Intake & Output: Intake and Output for Last 24 Hours 07/18/23 07/19/23 07/20/23 23:59 23:59 23:59 Intake Total 50 / 50 3377.45 / 3377.45 Output Total 2175 / 2175 650 / 650 Balance 50 / 50 1202.45 / 1202.45 -650 / -650 Lab / Micro Data Attestation: I reviewed the patient's lab results. 07/20/23 05:15 07/20/23 05:15 Labs: Laboratory Results - last 24 hr 07/20/23 05:15: WBC 21.4 H, RBC 3.57 L, Hgb 11.6 L, Hct 34.1 L, MCV 95.5 H, MCH 32.5 H, MCHC 34.0, RDW Std Deviation 45.1 H, RDW Coeff of Jose F 12.7, Plt Count 272, MPV 10.2, Immature Gran % (Auto) 1.500 H, Neut % (Auto) 92.9 H, Lymph % (Auto) 3.5 L, [place] % (Auto) 1.6, Eos % (Auto) 0.0, Baso % (Auto) 0.5, Absolute Neuts (auto) 19.9 H, Absolute Lymphs (auto) 0.75 L, Nucleated RBC % 0, Differential Comment SCANNED, Sodium 132 L, Potassium 3.3 L, Chloride 99, Carbon Dioxide 26.0, Anion Gap 7, BUN 19 H, Creatinine 0.73, Estim Creat Clear Calc 103.68, Est GFR (MDRD) Af Amer 138, Est GFR (MDRD) Non-Af 114, BUN/Creatinine Ratio 26.2 H, Glucose 132 H, Calcium 7.9 L, Total Bilirubin 1.20 H, AST 132 H, ALT 93 H, Alkaline Phosphatase 102, Total Protein 5.6 L, Albumin 1.3 L, Globulin 4.3 H, Albumin/Globulin Ratio 0.3 L Micro: Microbiology 07/19/23 02:48 Sputum, Expectorated/Coughed Gram Stain - Final 07/18/23 22:44 Mucosa - Nasopharyngeal Respiratory Panel (PCR) - Final RSV B 07/19/23 01:30 Nasal Secretion MRSA (PCR) - Final 07/19/23 03:03 Urine, Clean Catch Legionella Antigen - Final Legionella Antigen 07/19/23 03:03 Urine, Clean Catch Streptococcus pneumoniae Antigen (M - Final 07/18/23 22:44 Mucosa - Nose SARS-CoV-2, Influenza & RSV (PCR) - Final RSV Physical Exam Const alert Constitutional Narrative: Quite ill and fatigued in appearance. General Appearance: cooperative HEENT normocephalic and head/scalp atraumatic Eyes PERRL and EOMs intact bilaterally Neck supple General: trachea midline Chest inspection of chest normal Resp Effort and Inspection: tachypneic Auscultation: rales and diminished lung sounds Cardio regular rate and regular rhythm GI normal to inspection, nondistended, normoactive bowel sounds Extremity no clubbing, cyanosis or edema Skin no rashes or lesions noted Neuro CN's II-XII intact bilaterally, moves all extremities and no focal motor deficits Psych Mood & Affect: flat affect Charges/Coding Visit Charges Inpatient E&M: 90524 Subs Hosp L3
[2023-07-20] MEDS: Ipratropium/Albuterol Sulfate 3 ML AMPUL.NEB INHALATION ×4 (07:25→19:14)
[2023-07-20 10:21] LABS: BNP,B-Type NATRIURETIC PEPTIDE 32.9 pg/mL (0-100)
--- NOTE | 2023-07-20 10:25 | PN_ITS ---
Subjective Subjective Patient seen and examined. His was by his bedside. He complained of still feeling short of breath. He is on 15L of oxygen by nasal canula. He was switched ot Airvo during my review. He admits to occasional dry cough, but denies any chest pain, palpitations, dizziness, nausea, vomiting or any other symptoms. Re view of systems is otherwise negative. Objective Data Objective Data Vital Signs: Vital Signs Temp Pulse Resp BP Pulse Ox O2 Del Method O2 Flow Rate 98.8 F 73 24 H 144/67 H 93 Airvo 10 07/20/23 04:00 07/20/23 10:00 07/20/23 10:00 07/20/23 10:00 07/20/23 10:00 07/20/23 10:00 07/20/23 09:00 FiO2 40 07/19/23 22:00 Oxygen Flow Rate (L/min) 10 Oxygen Delivery Method Airvo Weight: 208 lb 1.862 oz Body Mass Index (BMI) 29.1 Intake & Output: Intake and Output for Last 24 Hours 07/18/23 07/19/23 07/20/23 23:59 23:59 23:59 Intake Total 50 / 50 3377.45 / 3377.45 Output Total 2175 / 2175 650 / 650 Balance 50 / 50 1202.45 / 1202.45 -650 / -650 Lab / Micro Data 07/20/23 05:15 07/20/23 05:15 Labs: Laboratory Results - last 24 hr 07/20/23 05:15: WBC 21.4 H, RBC 3.57 L, Hgb 11.6 L, Hct 34.1 L, MCV 95.5 H, MCH 32.5 H, MCHC 34.0, RDW Std Deviation 45.1 H, RDW Coeff of Jose F 12.7, Plt Count 272, MPV 10.2, Immature Gran % (Auto) 1.500 H, Neut % (Auto) 92.9 H, Lymph % (Auto) 3.5 L, [place] % (Auto) 1.6, Eos % (Auto) 0.0, Baso % (Auto) 0.5, Absolute Neuts (auto) 19.9 H, Absolute Lymphs (auto) 0.75 L, Nucleated RBC % 0, Differential Comment SCANNED, Sodium 132 L, Potassium 3.3 L, Chloride 99, Carbon Dioxide 26.0, Anion Gap 7, BUN 19 H, Creatinine 0.73, Estim Creat Clear Calc 103.68, Est GFR (MDRD) Af Amer 138, Est GFR (MDRD) Non-Af 114, BUN/Creatinine Ratio 26.2 H, Glucose 132 H, Calcium 7.9 L, Total Bilirubin 1.20 H, AST 132 H, ALT 93 H, Alkaline Phosphatase 102, B-Natriuretic Peptide 32.9, Total Protein 5.6 L, Albumin 1.3 L, Globulin 4.3 H, Albumin/Globulin Ratio 0.3 L Micro: Microbiology 07/19/23 02:48 Sputum, Expectorated/Coughed Gram Stain - Final 07/18/23 22:44 Mucosa - Nasopharyngeal Respiratory Panel (PCR) - Final RSV B 07/19/23 01:30 Nasal Secretion MRSA (PCR) - Final 07/19/23 03:03 Urine, Clean Catch Legionella Antigen - Final Legionella Antigen 07/19/23 03:03 Urine, Clean Catch Streptococcus pneumoniae Antigen (M - Final 07/18/23 22:44 Mucosa - Nose SARS-CoV-2, Influenza & RSV (PCR) - Final RSV Radiography Diagnostic Testing: Radiology Impression Renal Ultrasound 07/19/23 02:21 IMPRESSION: 1.3 cm x 1.5 cm x 0.9 cm left renal cyst. No evidence of hydronephrosis. Electronically Signed: Arsenio Magana MD at 8:39 EDT , Abdomen Ultrasound 07/19/23 05:21 IMPRESSION: Hepatomegaly with hepatic steatosis. Mild ascites. No sonographic evidence of cholelithiasis. Electronically Signed: Radha Alcaraz MD at 8:48 EDT , Physical Exam Const alert Constitutional Narrative: frail, weak HEENT normocephalic and head/scalp atraumatic Mouth: dry mucous membranes Eyes PERRL and EOMs intact bilaterally Neck no lymphadenopathy, supple and no JVD Lymph Lymphatic: no lymphadenopathy noted and no lymphedema noted Resp Resp Narrative: diminished breath sounds bilaterally, bilateral crackles. On 15L of oxygen, switchd to Airvo Effort and Inspection: tachypneic and respiratory distress Cardio regular rate, regular rhythm, S1 normal heart sound, S2 normal heart sound and no murmurs GI normal to inspection, nondistended, normoactive bowel sounds, soft to palpation, non-tender and non-distended Extremity normal capillary refill, no clubbing, cyanosis or edema and no calf tenderness General Extremity: no tenderness to palpation of joints or extremities Skin General Skin Exam: no breakdown Neuro CN's II-XII intact bilaterally, no focal motor deficits, no sensory deficits noted and deep tendon reflexes 2+ bilaterally Motor Exam: strength 5/5 throughout and general weakness Psych thought process normal, cooperative and affect normal Appearance: appropriate Mood & Affect: flat affect Assessment & Plan Assessment/Plan (1) Sepsis without septic shock: (2) Urinary retention: (3) RSV infection: (4) Legionella pneumonia: (5) Acute hypoxic respiratory failure: PLAN: Plan #Acute hypoxic respiratory failure due to legionella pneumonia and RSV * now on Airvo. * critical care on board * on IV levaquin * 2D echo ordered and pending * titrate oxygen to maintain sats >90% * Sputum cultures as well as blood cultures pending. * #Sepsis * Thought to be due to pneumonia. Was febrile with leukocytosis and an elevated lactic acid. This improved with hydration. Currently on IV vancomycin and Levaquin. * WBC now down to 21.4. #Acute urinary retention with BPH * has freeman catheter in situ * follows up with urology * on flomax * renal USG showed no evidence of hydronephrosis and showed a left renal cyst. * #Elevated liver enzymes * may be due to Legionella pneumonia * RUQ USG showed hepatomegaly with hepatic steatosis and mild ascites with no evidence of cholelithiasis. * Liver enzymes are trending downwards. * #Hyponatremia * sodium is improving. May also be due to Legionella pneumonia. Sodium today is 132. * will monitor * #Hypokalemia: Potassium is 3.3. Replace and trend. #HYpertension; amlodipine and losartan held on admission due ot hypotension #Afib: s/p ablation. Was previously on eliquis and rate control meds, but now off both since he had ablation. Will monitor DVT prophylaxis: lovenox Charges/Coding Visit Charges Inpatient E&M: 81815 Subs Hosp L3
[2023-07-20] MEDS: Tamsulosin HCl 0.4 MG Capsule PO (10:46)
[2023-07-20] MEDS: guaiFENesin 1,200 MG Tablet 1200 MG PO ×2 (10:46→20:17)
[2023-07-20] MEDS: Heparin Injection (Vial) 5,000 UNIT/ML VIAL 5000 UNIT SC ×2 (10:46→20:17)
[2023-07-20] MEDS: Ensure Plus High Protein 120 ML LIQUID PO ×3 (10:47→18:22)
--- NOTE | 2023-07-20 10:50 | CASEMGMT ---
RUTH POON Assessment Face to Face with patient for initial transition planning/care coordination assessment. RUTH POON introduced self and role at [facility], pt voices understanding. Pt is A&Ox4 and is resting comfortably in bed and is calm. Pt at bedside. Care providers, pharmacy, and demographics verified. Admitting dx: Acute Hypoxic RF secondary to pneumonia LACE Strata: 1 PCP: Gilson Aguayo Specialists: Neurologist @ [facility] Preferred Pharmacy: [facility] Insurance: [employer] [facility], [facility] [employer] Prescription Benefit: Yes LNOK: Alethea Eleanor (W) Living Arrangements: Pt is currently living in a mobile home with his that is one singe level with 5 steps to enter without a handrail. Pt states that they are working on getting one built NICOLE. ADLs/IADLs: States ind Transportation: Self, DME: [employer]. Denies all other DME uses. Pt is currently requiring additional O2 and does not wear any O2 at home. Pt educated that if the pt qualifies for home O2 that case management will help set that up. At this time, the pt did not seem interested in pre-selecting a DME company for potential needs. CM to follow. HHC/SNF: Denies history Pt Goal: Return to PLOF and return home Plan: TBD. The pt did not refuse HHC or SNF needs at this time. Per ICU rounds this morning, therapy is to be held today. CM/SW to follow pt progression in the hospital to appropriately prepare for disposition needs. Roscoe Hoffman RN, CM
[2023-07-20] MEDS: levoFLOXacin IV 750 MG/150 ML BAG 100 MG IV (20:17)
[2023-07-20] MEDS: Acetaminophen 325 MG Tablet 650 MG PO (20:21)
[2023-07-21] VITALS (35 sets, daily range): BP systolic 115–154; BP diastolic 57–75; PULSE 57–85; RESP 12–36; TEMP 36.6–37.5; O2SAT 89–100; BMI 28.8
[2023-07-21 05:45] LABS: Absolute Lymphocyte Count 0.98 X10^3/uL (0.83-4.51); Absolute Neutrophil Count 20.1 X10^3/uL (2.0-7.7); Basophil# 0.13 X10^3/uL; Basophil% 0.6 % (0-1); Eosinophil# 0.04 X10^3/uL; Eosinophils% 0.2 % (0-5); Hematocrit 34.3 % (40-54); Hemoglobin 11.7 g/dL (13.0-16.5); Lymphocyte # 0.98 X10^3/ul (0.83-4.51); Lymphocyte % 4.5 % (19-41); Mean Corp Hgb Conc 34.1 g/dL (32-36); Mean Corpuscular Volume 96.6 fL (80-94); Mean Platelet Vol. 10.2 fl (6.2-12.0); Monocyte# 0.43 X10^3/uL; NRBC Flagged by Analyzer 0 % (0-5); Neutrophil # 20.07 X10^3/uL (2.7-7.7); Neutrophil % 91.3 % (47-70); POSITIVE DIFFERENTIAL YES; Platelet Count 264 K/mm3 (150-450); RBC Distribution Width SD 46.3 fl (35.1-43.9); Red Blood Count 3.55 M/mm3 (4.6-6.2)
[2023-07-21 06:10] LABS: Anion Gap 5 (5-15); BUN 21 mg/dL (7-18); BUN/Creat Ratio 34.4 RATIO (10-20); Calcium,Total 8.1 mg/dL (8.5-10.1); Chloride 102 mmol/L (98-107); Creatinine, Serum 0.61 mg/dL (0.70-1.30); EST Glomerular Filtration Rate 140 mL/min (>60); Est Glom Filt Rate - Afr Amer 169 mL/min (>60); Estimated Creatinine Clearance 103.68 ml/min; Glucose 137 mg/dL (74-106); Potassium 3.6 mmol/L (3.5-5.1); Sodium Level 135 mmol/L (136-145)
[2023-07-21 06:50] LABS: Differential Comment SCANNED; Differential Indicated SCAN CRITERIA MET
--- NOTE | 2023-07-21 07:04 | PCM.PN.INT ---
Assessment & Plan Assessment/Plan (1) Acute hypoxic respiratory failure: (2) Legionella pneumonia: (3) Sepsis: PLAN: Plan RECOMMENDATIONS: 1. Continue supplemental oxygen and wean FiO2 for saturations greater than 90%. 2. Attempted PAP therapy once again, as clinically indicated. 3. Obtain follow-up chest x-ray this morning. 4. Continue antimicrobials. 5. Attempt gentle diuresis. 6. Continue appropriate DVT prophylaxis along with bronchodilator therapy. IMPRESSIONS: 1. Acute hypoxemic respiratory failure Appears multifactorial and related to RSV and superimposed Legionella pneumonia. The patient has evidence of bilateral airspace disease on chest imaging. Oxygen status remains quite tenuous. There was no pulmonary embolism identified. At this time, plan to continue supportive care with supplemental oxygen and antimicrobials as ordered. Surface echocardiogram was largely unrevealing. Will obtain follow-up chest imaging this morning and initiate gentle diuresis today, as tolerated by hemodynamics and renal function. 2. History of BPH/elevated transaminases/hypertension/history of atrial fibrillation Complicates care, management, recovery and prognosis. Continue supportive care as noted above. This note was generated with [employer] dictation software. It may contain incorrect words, spelling, and punctuation that were not noted in checking the note before signing. Subjective Subjective The patient was seen and examined at the bedside this morning. Events from the last 24 hours have been reviewed. The patient is currently afebrile, hemodynamically stable and maintaining appropriate oxygen saturations on Airvo heated high flow with an FiO2 requirement of 66% and flow rate of 55 L/min. White blood cell count remains elevated at 22,000. Chemistry profile was unremarkable. Objective Data Objective Data The patient's most recent lab work, culture data and imaging studies have all been personally reviewed. Respiratory viral panel was positive for RSV. Urinary Legionella antigen was positive. Vital Signs: Vital Signs Temp Pulse Resp BP Pulse Ox O2 Del Method O2 Flow Rate 99.5 F H 83 30 H 147/75 H 96 Airvo 55 07/21/23 04:00 07/21/23 06:59 07/21/23 06:59 07/21/23 06:59 07/21/23 06:59 07/21/23 06:59 07/21/23 06:59 FiO2 66 07/21/23 06:59 Oxygen Flow Rate (L/min) 55 Oxygen Delivery Method Airvo Weight: 207 lb 0.225 oz Body Mass Index (BMI) 28.8 Intake & Output: Intake and Output for Last 24 Hours 07/19/23 07/20/23 07/21/23 23:59 23:59 23:59 Intake Total 3377.45 / 3377.45 150 / 250 100 / 100 Output Total 2175 / 2175 1425 / 1725 625 / 625 Balance 1202.45 / 1202.45 -1275 / -1475 -525 / -525 Lab / Micro Data Attestation: I reviewed the patient's lab results. 07/21/23 05:30 07/21/23 05:30 Labs: Laboratory Results - last 24 hr 07/20/23 05:15: B-Natriuretic Peptide 32.9 07/21/23 05:30: WBC 22.0 H, RBC 3.55 L, Hgb 11.7 L, Hct 34.3 L, MCV 96.6 H, MCH 33.0 H, MCHC 34.1, RDW Std Deviation 46.3 H, RDW Coeff of Jose F 13.0, Plt Count 264, MPV 10.2, Immature Gran % (Auto) 1.400 H, Neut % (Auto) 91.3 H, Lymph % (Auto) 4.5 L, [place] % (Auto) 2.0, Eos % (Auto) 0.2, Baso % (Auto) 0.6, Absolute Neuts (auto) 20.1 H, Absolute Lymphs (auto) 0.98, Nucleated RBC % 0, Differential Comment SCANNED, Sodium 135 L, Potassium 3.6, Chloride 102, Carbon Dioxide 28.0, Anion Gap 5, BUN 21 H, Creatinine 0.61 L, Estim Creat Clear Calc 103.68, Est GFR (MDRD) Af Amer 169, Est GFR (MDRD) Non-Af 140, BUN/Creatinine Ratio 34.4 H, Glucose 137 H, Calcium 8.1 L Micro: Microbiology 07/19/23 02:48 Sputum, Expectorated/Coughed Gram Stain - Final 07/18/23 22:44 Mucosa - Nasopharyngeal Respiratory Panel (PCR) - Final RSV B 07/19/23 01:30 Nasal Secretion MRSA (PCR) - Final 07/19/23 03:03 Urine, Clean Catch Legionella Antigen - Final Legionella Antigen 07/19/23 03:03 Urine, Clean Catch Streptococcus pneumoniae Antigen (M - Final 07/18/23 22:44 Mucosa - Nose SARS-CoV-2, Influenza & RSV (PCR) - Final RSV Radiography Diagnostic Testing: Radiology Impression Renal Ultrasound 07/19/23 02:21 IMPRESSION: 1.3 cm x 1.5 cm x 0.9 cm left renal cyst. No evidence of hydronephrosis. Electronically Signed: Arsenio Magana MD at 8:39 EDT , Abdomen Ultrasound 07/19/23 05:21 IMPRESSION: Hepatomegaly with hepatic steatosis. Mild ascites. No sonographic evidence of cholelithiasis. Electronically Signed: Radha Alcaraz MD at 8:48 EDT , Echocardiogram 07/19/23 11:59 Interpretation Summary The estimated ejection fraction is 60 %. No evidence for diastolic dysfunction. Trivial mitral valve insufficiency. The left atrium is mildly enlarged. Ordering Physician: Praneeth Thomas Performed By: Hanna Cota, RDCS Physical Exam Const alert and oriented x3 Constitutional Narrative: Remains ill and fatigued in appearance. General Appearance: cooperative HEENT normocephalic and head/scalp atraumatic Eyes PERRL and EOMs intact bilaterally Neck supple General: trachea midline Chest inspection of chest normal Resp Effort and Inspection: tachypneic Auscultation: rales and diminished lung sounds Cardio regular rate and regular rhythm GI normal to inspection, nondistended, normoactive bowel sounds Extremity no clubbing, cyanosis or edema Skin no rashes or lesions noted Neuro CN's II-XII intact bilaterally, moves all extremities and no focal motor deficits Psych Mood & Affect: flat affect Charges/Coding Visit Charges Inpatient E&M: 39356 Subs Hosp L3
[2023-07-21] MEDS: Ipratropium/Albuterol Sulfate 3 ML AMPUL.NEB INHALATION ×4 (07:11→18:55)
--- NOTE | 2023-07-21 07:45 | RAD_ITS ---
STUDY: X-RAY CHEST REASON FOR EXAM: Male, 68 years old. Respiratory Failure TECHNIQUE: Single AP portable view of the chest. COMPARISON: Comparison is made with prior study dated June 17, 2016. FINDINGS: EKG electrodes are seen. There is evidence of diffuse bilateral patchy areas of alveolar opacities worse in the right hemithorax. Blunting of the right costo phrenic angle suggestive of a small pleural effusion. Normal size heart. Normal mediastinum and myra. Normal visualized pulmonary arteries. Normal visualized aortic arch and descending thoracic aorta. There are diffuse degenerative changes of the visualized thoracic spine. Normal visualized ribs, clavicles, and shoulders. There is no demonstrated abnormality of the visualized soft tissue structures of the upper abdomen. RAD/Chest 1 View (Portable) IMPRESSION: Diffuse bilateral patchy areas of alveolar infiltrates worse in the right hemithorax with a small right pleural effusion. Electronically Signed: Arsenio Magana MD at 8:35 EDT ,
--- NOTE | 2023-07-21 09:09 | PN_ITS ---
Subjective Subjective Patient seen and examined. He is on BIPAP this morning. He remains short of breath, though not as tachypneic as previously. He is still coughing. He denies chest pain, palpitations, dizziness, nausea, vomiting or any other symptoms. Review of systems is otherwise negative. Objective Data Objective Data Vital Signs: Vital Signs Temp Pulse Resp BP Pulse Ox O2 Del Method O2 Flow Rate 98.3 F 70 34 H 152/68 H 95 Bi-pap 60 07/21/23 08:00 07/21/23 08:00 07/21/23 08:00 07/21/23 08:00 07/21/23 08:00 07/21/23 08:00 07/21/23 07:00 FiO2 65 07/21/23 08:00 Oxygen Flow Rate (L/min) 60 Oxygen Delivery Method Bi-pap Weight: 207 lb 0.225 oz Body Mass Index (BMI) 28.8 Intake & Output: Intake and Output for Last 24 Hours 07/19/23 07/20/23 07/21/23 23:59 23:59 23:59 Intake Total 3377.45 / 3377.45 150 / 250 100 / 100 Output Total 2175 / 2175 1425 / 1725 625 / 625 Balance 1202.45 / 1202.45 -1275 / -1475 -525 / -525 Lab / Micro Data 07/21/23 05:30 07/21/23 05:30 Labs: Laboratory Results - last 24 hr 07/20/23 05:15: B-Natriuretic Peptide 32.9 07/21/23 05:30: WBC 22.0 H, RBC 3.55 L, Hgb 11.7 L, Hct 34.3 L, MCV 96.6 H, MCH 33.0 H, MCHC 34.1, RDW Std Deviation 46.3 H, RDW Coeff of Jose F 13.0, Plt Count 264, MPV 10.2, Immature Gran % (Auto) 1.400 H, Neut % (Auto) 91.3 H, Lymph % (Auto) 4.5 L, Marion % (Auto) 2.0, Eos % (Auto) 0.2, Baso % (Auto) 0.6, Absolute Neuts (auto) 20.1 H, Absolute Lymphs (auto) 0.98, Nucleated RBC % 0, Differential Comment SCANNED, Sodium 135 L, Potassium 3.6, Chloride 102, Carbon Dioxide 28.0, Anion Gap 5, BUN 21 H, Creatinine 0.61 L, Estim Creat Clear Calc 103.68, Est GFR (MDRD) Af Amer 169, Est GFR (MDRD) Non-Af 140, BUN/Creatinine Ratio 34.4 H, Glucose 137 H, Calcium 8.1 L Micro: Microbiology 07/18/23 22:44 Blood Culture (Wb) - Left Forearm Blood Culture - Preliminary No growth in 48 hours. 07/18/23 22:11 Blood Culture (Wb) - Anticubital Right Blood Culture - Preliminary No growth in 48 hours. 07/19/23 02:48 Sputum, Expectorated/Coughed Gram Stain - Final 07/19/23 02:48 Sputum, Expectorated/Coughed Respiratory Culture - Final Streptococcus group C 07/18/23 22:44 Mucosa - Nasopharyngeal Respiratory Panel (PCR) - Final RSV B 07/19/23 01:30 Nasal Secretion MRSA (PCR) - Final 07/19/23 03:03 Urine, Clean Catch Legionella Antigen - Final Legionella Antigen 07/19/23 03:03 Urine, Clean Catch Streptococcus pneumoniae Antigen (M - Final 07/18/23 22:44 Mucosa - Nose SARS-CoV-2, Influenza & RSV (PCR) - Final RSV Radiography Diagnostic Testing: Radiology Impression Echocardiogram 07/19/23 11:59 Interpretation Summary The estimated ejection fraction is 60 %. No evidence for diastolic dysfunction. Trivial mitral valve insufficiency. The left atrium is mildly enlarged. Ordering Physician: Praneeth Thomas Performed By: Hanna Cota RDCS Chest X-Ray 07/21/23 07:45 IMPRESSION: Diffuse bilateral patchy areas of alveolar infiltrates worse in the right hemithorax with a small right pleural effusion. Electronically Signed: Arsenio Magana MD at 8:35 EDT , Physical Exam Const alert and oriented x3 Constitutional Narrative: frail, weak General Appearance: cooperative HEENT normocephalic, head/scalp atraumatic, hearing grossly normal bilaterally and nasal mucous membranes and turbinates normal Eyes PERRL, EOMs intact bilaterally and conjunctivae normal Neck full ROM, no lymphadenopathy, supple and no JVD Lymph Lymphatic: no lymphadenopathy noted and no lymphedema noted Chest inspection of chest normal Resp Resp Narrative: diminished breath sounds bilaterally, bilateral crackles. On BIPAP. Effort and Inspection: tachypneic and respiratory distress Cardio regular rate, regular rhythm, S1 normal heart sound, S2 normal heart sound, no murmurs and peripheral pulses 2+ throughout GI normal to inspection, nondistended, normoactive bowel sounds, soft to palpation, non-tender and non-distended Back/Spine normal ROM Extremity normal to inspection, full ROM, normal capillary refill, no clubbing, cyanosis or edema, no calf tenderness and no pedal edema General Extremity: no tenderness to palpation of joints or extremities Skin no rashes or lesions noted General Skin Exam: no breakdown Neuro CN's II-XII intact bilaterally, moves all extremities, no focal motor deficits, no sensory deficits noted and deep tendon reflexes 2+ bilaterally Speech: speech normal Motor Exam: strength 5/5 throughout and general weakness Psych mental status grossly normal, thought process normal, cooperative and affect normal Appearance: appropriate Mood & Affect: flat affect Assessment & Plan Assessment/Plan (1) Sepsis without septic shock: (2) Urinary retention: (3) RSV infection: (4) Legionella pneumonia: (5) Acute hypoxic respiratory failure: PLAN: Plan #Acute hypoxic respiratory failure due to legionella and strep pneumonia and RSV * now requiring BIPAP. still tachypneic. On BIPAP with FiO2 of 65% at 16/8 * critical care on board * remains on IV levaquin * sputum culture positive for Strep grp C. * 2D echo showed EF of 60% with no evidence of diastolic dysfunction and mildly enlarged left atrium as well as trivial mitral valve insufficiency. * titrate oxygen to maintain sats >90% * in cumulative negative balance by 547 mls * #Sepsis * Thought to be due to pneumonia. Was febrile with leukocytosis and an elevated lactic acid. This improved with hydration. Remains on Levaquin. * WBC today is 22. * critical care on board. #Acute urinary retention with BPH * has freeman catheter in situ * follows up with urology * on flomax * renal USG showed no evidence of hydronephrosis and showed a left renal cyst. * #Elevated liver enzymes * may be due to Legionella pneumonia * RUQ USG showed hepatomegaly with hepatic steatosis and mild ascites with no evidence of cholelithiasis. * Liver enzymes are trending downwards. * #Hyponatremia * sodium is improving. May also be due to Legionella pneumonia. Sodium today is 132. * will monitor * #Hypokalemia: resolved #HYpertension; amlodipine and losartan held on admission due to hypotension #Afib: s/p ablation. Was previously on eliquis and rate control meds, but now off both since he had ablation. Will monitor DVT prophylaxis: lovenox Charges/Coding Visit Charges Inpatient E&M: 99412 [facility] Hosp L3
--- NOTE | 2023-07-21 10:02 | CASEMGMT ---
Social Work SW spoke w/ in [facility] briefly, let her know SW is here for support and available should she want to talk. TASIA Patel
[2023-07-21] MEDS: Furosemide 40 MG/4 ML Vial IV (10:26)
[2023-07-21] MEDS: 0.9% Saline Lock 10 ML Syringe IV (10:26)
[2023-07-21] MEDS: Heparin Injection (Vial) 5,000 UNIT/ML VIAL 5000 UNIT SC ×2 (10:31→19:42)
[2023-07-21 15:11] LABS: Pathologist Review Reviewed
[2023-07-21] MEDS: levoFLOXacin IV 750 MG/150 ML BAG 100 MG IV (19:42)
[2023-07-21] MEDS: guaiFENesin 1,200 MG Tablet 1200 MG PO (19:42)
[2023-07-21] MEDS: Acetaminophen 325 MG Tablet 650 MG PO (19:43)
[2023-07-22] VITALS (37 sets, daily range): BP systolic 128–167; BP diastolic 57–88; PULSE 52–90; RESP 12–38; TEMP 36–36.9; O2SAT 92–99; BMI 28.1
[2023-07-22 03:50] LABS: Absolute Lymphocyte Count 1.15 X10^3/uL (0.83-4.51); Absolute Neutrophil Count 18.9 X10^3/uL (2.0-7.7); Basophil# 0.09 X10^3/uL; Basophil% 0.4 % (0-1); Eosinophil# 0.08 X10^3/uL; Eosinophils% 0.4 % (0-5); Hematocrit 35.5 % (40-54); Hemoglobin 11.8 g/dL (13.0-16.5); Lymphocyte # 1.15 X10^3/ul (0.83-4.51); Lymphocyte % 5.5 % (19-41); Mean Corp Hgb Conc 33.2 g/dL (32-36); Mean Corpuscular Hgb 32.2 pg (27.0-32.0); Mean Platelet Vol. 10.2 fl (6.2-12.0); Monocyte# 0.49 X10^3/uL; Monocyte% 2.3 % (0-10); NRBC Flagged by Analyzer 0 % (0-5); Neutrophil # 18.85 X10^3/uL (2.7-7.7); Neutrophil % 90.3 % (47-70); POSITIVE MORPHOLOGY YES; Platelet Count 294 K/mm3 (150-450); RBC Distribution Width CV 13.1 % (11.6-14.6); RBC Distribution Width SD 46.9 fl (35.1-43.9); Red Blood Count 3.66 M/mm3 (4.6-6.2); White Blood Count 20.9 K/mm3 (4.4-11.0)
[2023-07-22 04:06] LABS: Anion Gap 6 (5-15); BUN 25 mg/dL (7-18); BUN/Creat Ratio 34.7 RATIO (10-20); Calcium,Total 8.1 mg/dL (8.5-10.1); Chloride 99 mmol/L (98-107); Creatinine, Serum 0.72 mg/dL (0.70-1.30); EST Glomerular Filtration Rate 115 mL/min (>60); Est Glom Filt Rate - Afr Amer 139 mL/min (>60); Estimated Creatinine Clearance 103.43 ml/min; Glucose 136 mg/dL (74-106); Potassium 3.6 mmol/L (3.5-5.1); Sodium Level 136 mmol/L (136-145)
[2023-07-22 04:12] LABS: Differential Indicated SCAN CRITERIA MET
[2023-07-22] MEDS: Ipratropium/Albuterol Sulfate 3 ML AMPUL.NEB INHALATION ×4 (07:04→19:37)
--- NOTE | 2023-07-22 07:31 | PCM.PN.INT ---
Assessment & Plan Assessment/Plan (1) Acute hypoxic respiratory failure: (2) Legionella pneumonia: (3) Sepsis: PLAN: Plan RECOMMENDATIONS: 1. Continue supplemental oxygen and wean FiO2 for saturations greater than 90%. 2. Continue PAP therapy as clinically indicated. 3. Continue antimicrobials. 4. Initiate corticosteroids as ordered. 5. Continue appropriate DVT prophylaxis along with bronchodilator therapy. IMPRESSIONS: 1. Acute hypoxemic respiratory failure Appears multifactorial and related to RSV and superimposed Legionella pneumonia. The patient has evidence of bilateral airspace disease on chest imaging. Oxygen status remains quite tenuous. There was no pulmonary embolism identified. At this time, plan to continue supportive care with supplemental oxygen and antimicrobials as ordered. Surface echocardiogram was largely unrevealing. Given the patient's current oxygenation status, will initiate corticosteroids today. 2. History of BPH/elevated transaminases/hypertension/history of atrial fibrillation Complicates care, management, recovery and prognosis. Continue supportive care as noted above. This note was generated with [employer] dictation software. It may contain incorrect words, spelling, and punctuation that were not noted in checking the note before signing. Subjective Subjective The patient was seen and examined at the bedside this morning. Events from the last 24 hours have been reviewed. The patient is currently afebrile, hemodynamically stable and maintaining appropriate oxygen saturations on Airvo heated high flow with an FiO2 requirement of 78% and flow rate of 60 L/min. The patient was tolerant of PAP therapy overnight for approximately 6 hours. He is currently documented to be overall net -3 L for the hospitalization. White count remains elevated at 21,000. Creatinine remains within normal limits. In light of the patient's tenuous respiratory status, systemic corticosteroids were initiated this morning as well. Objective Data Objective Data The patient's most recent lab work, culture data and imaging studies have all been personally reviewed. Respiratory viral panel was positive for RSV. Urinary Legionella antigen was positive. Vital Signs: Vital Signs Temp Pulse Resp BP Pulse Ox O2 Del Method O2 Flow Rate 97.8 F 75 26 H 136/61 H 94 Airvo 60 07/22/23 04:00 07/22/23 07:04 07/22/23 07:04 07/22/23 07:00 07/22/23 07:04 07/22/23 07:04 07/22/23 07:04 FiO2 78 07/22/23 07:04 Oxygen Flow Rate (L/min) 60 Oxygen Delivery Method Airvo Weight: 201 lb 15.095 oz Body Mass Index (BMI) 28.1 Intake & Output: Intake and Output for Last 24 Hours 07/20/23 07/21/23 07/22/23 23:59 23:59 23:59 Intake Total 150 / 250 650 / 650 Output Total 1425 / 1725 2975 / 3275 700 / 700 Balance -1275 / -1475 -2325 / -2625 -700 / -700 Lab / Micro Data Attestation: I reviewed the patient's lab results. 07/22/23 03:40 07/22/23 03:40 Labs: Laboratory Results - last 24 hr 07/18/23 22:11: Diff Path Review Reviewed 07/22/23 03:40: WBC 20.9 H, RBC 3.66 L, Hgb 11.8 L, Hct 35.5 L, MCV 97.0 H, MCH 32.2 H, MCHC 33.2, RDW Std Deviation 46.9 H, RDW Coeff of Jose F 13.1, Plt Count 294, MPV 10.2, Immature Gran % (Auto) 1.100 H, Neut % (Auto) 90.3 H, Lymph % (Auto) 5.5 L, Taney % (Auto) 2.3, Eos % (Auto) 0.4, Baso % (Auto) 0.4, Absolute Neuts (auto) 18.9 H, Absolute Lymphs (auto) 1.15, Nucleated RBC % 0, Sodium 136, Potassium 3.6, Chloride 99, Carbon Dioxide 31.0, Anion Gap 6, BUN 25 H, Creatinine 0.72, Estim Creat Clear Calc 103.43, Est GFR (MDRD) Af Amer 139, Est GFR (MDRD) Non-Af 115, BUN/Creatinine Ratio 34.7 H, Glucose 136 H, Calcium 8.1 L Micro: Microbiology 07/18/23 22:44 Blood Culture (Wb) - Left Forearm Blood Culture - Preliminary No growth in 48 hours. 07/18/23 22:11 Blood Culture (Wb) - Anticubital Right Blood Culture - Preliminary No growth in 48 hours. 07/19/23 02:48 Sputum, Expectorated/Coughed Gram Stain - Final 07/19/23 02:48 Sputum, Expectorated/Coughed Respiratory Culture - Final Streptococcus group C 07/18/23 22:44 Mucosa - Nasopharyngeal Respiratory Panel (PCR) - Final RSV B 07/19/23 01:30 Nasal Secretion MRSA (PCR) - Final 07/19/23 03:03 Urine, Clean Catch Legionella Antigen - Final Legionella Antigen 07/19/23 03:03 Urine, Clean Catch Streptococcus pneumoniae Antigen (M - Final 07/18/23 22:44 Mucosa - Nose SARS-CoV-2, Influenza & RSV (PCR) - Final RSV Radiography Diagnostic Testing: Radiology Impression Chest X-Ray 07/21/23 07:45 IMPRESSION: Diffuse bilateral patchy areas of alveolar infiltrates worse in the right hemithorax with a small right pleural effusion. Electronically Signed: Arsenio Magana MD at 8:35 EDT , Physical Exam Const alert and oriented x3 Constitutional Narrative: Remains ill and fatigued in appearance. General Appearance: cooperative HEENT normocephalic and head/scalp atraumatic Eyes PERRL and EOMs intact bilaterally Neck supple General: trachea midline Chest inspection of chest normal Resp Effort and Inspection: tachypneic Auscultation: rales and diminished lung sounds Cardio regular rate and regular rhythm GI normal to inspection, nondistended, normoactive bowel sounds Extremity no clubbing, cyanosis or edema Skin no rashes or lesions noted Neuro CN's II-XII intact bilaterally, moves all extremities and no focal motor deficits Psych Mood & Affect: flat affect Charges/Coding Visit Charges Inpatient E&M: 49232 Subs Hosp L3
[2023-07-22] MEDS: Heparin Injection (Vial) 5,000 UNIT/ML VIAL 5000 UNIT SC ×2 (10:16→19:58)
[2023-07-22] MEDS: Tamsulosin HCl 0.4 MG Capsule PO (10:16)
[2023-07-22] MEDS: guaiFENesin 1,200 MG Tablet 1200 MG PO ×2 (10:16→19:58)
--- NOTE | 2023-07-22 11:01 | PN_ITS ---
Subjective Subjective Patient seen and examined. He remains on Airvo. Still looks frail and weak but has no active complaints. Review of systems is otherwise negative. Objective Data Objective Data Vital Signs: Vital Signs Temp Pulse Resp BP Pulse Ox O2 Del Method O2 Flow Rate 98.1 F 84 31 H 158/86 H 94 Airvo 60 07/22/23 08:00 07/22/23 09:00 07/22/23 09:00 07/22/23 09:00 07/22/23 09:00 07/22/23 09:00 07/22/23 09:00 FiO2 83 07/22/23 09:00 Oxygen Flow Rate (L/min) 60 Oxygen Delivery Method Airvo Weight: 201 lb 15.095 oz Body Mass Index (BMI) 28.1 Intake & Output: Intake and Output for Last 24 Hours 07/20/23 07/21/23 07/22/23 23:59 23:59 23:59 Intake Total 150 / 250 650 / 650 Output Total 1425 / 1725 2975 / 3275 700 / 700 Balance -1275 / -1475 -2325 / -2625 -700 / -700 Lab / Micro Data 07/22/23 03:40 07/22/23 03:40 Labs: Laboratory Results - last 24 hr 07/18/23 22:11: Diff Path Review Reviewed 07/22/23 03:40: WBC 20.9 H, RBC 3.66 L, Hgb 11.8 L, Hct 35.5 L, MCV 97.0 H, MCH 32.2 H, MCHC 33.2, RDW Std Deviation 46.9 H, RDW Coeff of Jose F 13.1, Plt Count 294, MPV 10.2, Immature Gran % (Auto) 1.100 H, Neut % (Auto) 90.3 H, Lymph % (Auto) 5.5 L, Ritchie % (Auto) 2.3, Eos % (Auto) 0.4, Baso % (Auto) 0.4, Absolute Neuts (auto) 18.9 H, Absolute Lymphs (auto) 1.15, Nucleated RBC % 0, Sodium 136, Potassium 3.6, Chloride 99, Carbon Dioxide 31.0, Anion Gap 6, BUN 25 H, Creatinine 0.72, Estim Creat Clear Calc 103.43, Est GFR (MDRD) Af Amer 139, Est GFR (MDRD) Non-Af 115, BUN/Creatinine Ratio 34.7 H, Glucose 136 H, Calcium 8.1 L Micro: Microbiology 07/18/23 22:44 Blood Culture (Wb) - Left Forearm Blood Culture - Preliminary No growth in 48 hours. 07/18/23 22:11 Blood Culture (Wb) - Anticubital Right Blood Culture - Preliminary No growth in 48 hours. 07/19/23 02:48 Sputum, Expectorated/Coughed Gram Stain - Final 07/19/23 02:48 Sputum, Expectorated/Coughed Respiratory Culture - Final Streptococcus group C 07/18/23 22:44 Mucosa - Nasopharyngeal Respiratory Panel (PCR) - Final RSV B 07/19/23 01:30 Nasal Secretion MRSA (PCR) - Final 07/19/23 03:03 Urine, Clean Catch Legionella Antigen - Final Legionella Antigen 07/19/23 03:03 Urine, Clean Catch Streptococcus pneumoniae Antigen (M - Final 07/18/23 22:44 Mucosa - Nose SARS-CoV-2, Influenza & RSV (PCR) - Final RSV Physical Exam Const alert and oriented x3 Constitutional Narrative: frail, weak General Appearance: cooperative HEENT normocephalic, head/scalp atraumatic, hearing grossly normal bilaterally and nasal mucous membranes and turbinates normal Eyes PERRL, EOMs intact bilaterally and conjunctivae normal Neck full ROM, no lymphadenopathy, supple and no JVD Lymph Lymphatic: no lymphadenopathy noted and no lymphedema noted Chest inspection of chest normal Resp Resp Narrative: diminished breath sounds bilaterally, bilateral crackles. On Airvo. Effort and Inspection: tachypneic Cardio regular rate, regular rhythm, S1 normal heart sound, S2 normal heart sound, no murmurs and peripheral pulses 2+ throughout GI normal to inspection, nondistended, normoactive bowel sounds, soft to palpation, non-tender and non-distended Narrative: Back/Spine normal ROM Extremity normal to inspection, full ROM, normal capillary refill, no clubbing, cyanosis or edema, no calf tenderness and no pedal edema General Extremity: no tenderness to palpation of joints or extremities Skin no rashes or lesions noted General Skin Exam: no breakdown Neuro CN's II-XII intact bilaterally, moves all extremities, no focal motor deficits, no sensory deficits noted and deep tendon reflexes 2+ bilaterally Speech: speech normal Motor Exam: strength 5/5 throughout and general weakness Psych mental status grossly normal, thought process normal, cooperative and affect normal Appearance: appropriate Mood & Affect: flat affect Assessment & Plan Assessment/Plan (1) Sepsis without septic shock: (2) Urinary retention: (3) RSV infection: (4) Legionella pneumonia: (5) Acute hypoxic respiratory failure: PLAN: Plan #Acute hypoxic respiratory failure due to legionella and strep pneumonia and RSV * now on Airvvo * critical care on board * remains on IV levaquin * sputum culture positive for Strep grp C. * 2D echo showed EF of 60% with no evidence of diastolic dysfunction and mildly enlarged left atrium as well as trivial mitral valve insufficiency. * titrate oxygen to maintain sats >90% * in cumulative negative balance by 3L * IV solumedrol added on per critical care. * #Sepsis * Thought to be due to pneumonia. Was febrile with leukocytosis and an elevated lactic acid. This improved with hydration. Remains on Levaquin. * WBC today has trended down to 20.9. * critical care on board. #Acute urinary retention with BPH * has freeman catheter in situ * follows up with urology * on flomax * renal USG showed no evidence of hydronephrosis and showed a left renal cyst. * #Elevated liver enzymes * may be due to Legionella pneumonia * RUQ USG showed hepatomegaly with hepatic steatosis and mild ascites with no evidence of cholelithiasis. * Liver enzymes are trending downwards. * #Hyponatremia * resolved. Sodium is 136. * #Hypokalemia: resolved #HYpertension; amlodipine and losartan held on admission due to hypotension #Afib: s/p ablation. Was previously on eliquis and rate control meds, but now off both since he had ablation. Will monitor DVT prophylaxis: lovenox Charges/Coding Visit Charges Inpatient E&M: 09242 Subs Hosp L3
[2023-07-22] MEDS: Ensure Plus High Protein 120 ML LIQUID PO ×3 (14:11→19:56)
[2023-07-22] MEDS: levoFLOXacin IV 750 MG/150 ML BAG 100 MG IV (19:58)
[2023-07-22] MEDS: 0.9% Saline Lock 10 ML Syringe IV ×2 (19:59→23:22)
[2023-07-23] VITALS (33 sets, daily range): BP systolic 122–176; BP diastolic 58–77; PULSE 45–80; RESP 12–28; TEMP 36–37.1; O2SAT 89–98; BMI 28.2
[2023-07-23] MEDS: CHLORHEXIDINE GLUC 2% CLOTH 1 EACH TOWELETTE TOPICAL (03:44)
[2023-07-23] MEDS: 0.9% Saline Lock 10 ML Syringe IV ×4 (03:44→21:02)
[2023-07-23 04:11] LABS: Absolute Lymphocyte Count 1.18 X10^3/uL (0.83-4.51); Absolute Neutrophil Count 16.3 X10^3/uL (2.0-7.7); Basophil# 0.05 X10^3/uL; Basophil% 0.3 % (0-1); Eosinophil# 0.01 X10^3/uL; Eosinophils% 0.1 % (0-5); Hematocrit 35.6 % (40-54); Hemoglobin 11.8 g/dL (13.0-16.5); Lymphocyte # 1.18 X10^3/ul (0.83-4.51); Lymphocyte % 6.5 % (19-41); Mean Corp Hgb Conc 33.1 g/dL (32-36); Mean Corpuscular Hgb 32.5 pg (27.0-32.0); Mean Corpuscular Volume 98.1 fL (80-94); Mean Platelet Vol. 10.7 fl (6.2-12.0); Monocyte# 0.28 X10^3/uL; Monocyte% 1.5 % (0-10); NRBC Flagged by Analyzer 0 % (0-5); Neutrophil # 16.26 X10^3/uL (2.7-7.7); Neutrophil % 89.9 % (47-70); POSITIVE MORPHOLOGY YES; Platelet Count 320 K/mm3 (150-450); RBC Distribution Width CV 13.1 % (11.6-14.6); RBC Distribution Width SD 47.1 fl (35.1-43.9); Red Blood Count 3.63 M/mm3 (4.6-6.2); White Blood Count 18.1 K/mm3 (4.4-11.0)
[2023-07-23 04:14] LABS: Differential Indicated SCAN CRITERIA MET
[2023-07-23 04:33] LABS: Anion Gap 4 (5-15); BUN 28 mg/dL (7-18); BUN/Creat Ratio 48.4 RATIO (10-20); Calcium,Total 8.3 mg/dL (8.5-10.1); Chloride 100 mmol/L (98-107); Creatinine, Serum 0.58 mg/dL (0.70-1.30); EST Glomerular Filtration Rate 149 mL/min (>60); Est Glom Filt Rate - Afr Amer 180 mL/min (>60); Estimated Creatinine Clearance 102.23 ml/min; Glucose 187 mg/dL (74-106); Potassium 4.1 mmol/L (3.5-5.1); Sodium Level 135 mmol/L (136-145)
[2023-07-23] MEDS: Ipratropium/Albuterol Sulfate 3 ML AMPUL.NEB INHALATION ×3 (06:53→19:25)
--- NOTE | 2023-07-23 07:48 | PN.CC_ITS ---
Assessment & Plan Assessment/Plan (1) Acute hypoxic respiratory failure: (2) Legionella pneumonia: (3) Sepsis: PLAN: Plan RECOMMENDATIONS: 1. Continue supplemental oxygen and wean FiO2 for saturations greater than 90%. 2. Continue PAP therapy, if clinically needed. 3. Continue antimicrobials. Will obtain ID consultation. 4. Continue corticosteroids as ordered. 5. Continue appropriate DVT prophylaxis along with bronchodilator therapy. IMPRESSIONS: 1. Acute hypoxemic respiratory failure Appears multifactorial and related to RSV and superimposed Legionella pneumonia. The patient has evidence of bilateral airspace disease on chest imaging. Oxygen status remains quite tenuous. There was no pulmonary embolism identif ied. At this time, plan to continue supportive care with supplemental oxygen and antimicrobials as ordered. Surface echocardiogram was largely unrevealing. Given the patient's current oxygenation status, will continue systemic corticosteroids. 2. History of BPH/elevated transaminases/hypertension/history of atrial fibrillation Complicates care, management, recovery and prognosis. Continue supportive care as noted above. This note was generated with [employer] dictation software. It may contain incorrect words, spelling, and punctuation that were not noted in checking the note before signing. Subjective Subjective The patient was seen and examined at the bedside this morning. Events from the last 24 hours have been reviewed. The patient is currently afebrile, hemodynamically stable and maintaining appropriate oxygen saturations on Airvo heated high flow with an FiO2 requirement of 50% and flow rate of 60 L/min. Overall, the patient feels somewhat better than the last several days. The patient is documented to be overall net -4.3 L for the hospitalization. White count remains elevated at 18,000. Creatinine remains within normal limits. Objective Data Objective Data The patient's most recent lab work, culture data and imaging studies have all been personally reviewed. Respiratory viral panel was positive for RSV. Urinary Legionella antigen was positive. Vital Signs: Vital Signs Temp Pulse Resp BP Pulse Ox O2 Del Method O2 Flow Rate 97.1 F L 46 L 19 H 142/65 H 95 Airvo 60 07/23/23 04:00 07/23/23 07:00 07/23/23 07:00 07/23/23 07:00 07/23/23 07:00 07/23/23 07:00 07/23/23 07:00 FiO2 50 07/23/23 07:00 Oxygen Flow Rate (L/min) 60 Oxygen Delivery Method Airvo Weight: 201 lb 11.567 oz Body Mass Index (BMI) 28.2 Intake & Output: Intake and Output for Last 24 Hours 07/21/23 07/22/23 07/23/23 23:59 23:59 23:59 Intake Total 650 / 650 150 / 150 Output Total 2975 / 3275 1735 / 1735 375 / 375 Balance -2325 / -2625 -1585 / -1585 -375 / -375 Lab / Micro Data Attestation: I reviewed the patient's lab results. 07/23/23 03:49 07/23/23 03:49 Labs: Laboratory Results - last 24 hr 07/23/23 03:49: WBC 18.1 H, RBC 3.63 L, Hgb 11.8 L, Hct 35.6 L, MCV 98.1 H, MCH 32.5 H, MCHC 33.1, RDW Std Deviation 47.1 H, RDW Coeff of Jose F 13.1, Plt Count 320, MPV 10.7, Immature Gran % (Auto) 1.700 H, Neut % (Auto) 89.9 H, Lymph % (Auto) 6.5 L, Amelia % (Auto) 1.5, Eos % (Auto) 0.1, Baso % (Auto) 0.3, Absolute Neuts (auto) 16.3 H, Absolute Lymphs (auto) 1.18, Nucleated RBC % 0, Sodium 135 L, Potassium 4.1, Chloride 100, Carbon Dioxide 31.0, Anion Gap 4 L, BUN 28 H, Creatinine 0.58 L, Estim Creat Clear Calc 102.23, Est GFR (MDRD) Af Amer 180, Est GFR (MDRD) Non-Af 149, BUN/Creatinine Ratio 48.4 H, Glucose 187 H, Calcium 8.3 L Micro: Microbiology 07/18/23 22:44 Blood Culture (Wb) - Left Forearm Blood Culture - Preliminary No growth in 48 hours. 07/18/23 22:11 Blood Culture (Wb) - Anticubital Right Blood Culture - Preliminary No growth in 48 hours. 07/19/23 02:48 Sputum, Expectorated/Coughed Gram Stain - Final 07/19/23 02:48 Sputum, Expectorated/Coughed Respiratory Culture - Final Streptococcus group C 04/27/24 22:44 Mucosa - Nasopharyngeal Respiratory Panel (PCR) - Final RSV B 07/19/23 01:30 Nasal Secretion MRSA (PCR) - Final 07/19/23 03:03 Urine, Clean Catch Legionella Antigen - Final Legionella Antigen 07/19/23 03:03 Urine, Clean Catch Streptococcus pneumoniae Antigen (M - Final 07/18/23 22:44 Mucosa - Nose SARS-CoV-2, Influenza & RSV (PCR) - Final RSV Radiography Diagnostic Testing: Radiology Impression Chest X-Ray 07/21/23 07:45 IMPRESSION: Diffuse bilateral patchy areas of alveolar infiltrates worse in the right hemithorax with a small right pleural effusion. Electronically Signed: Arsenio Magana MD at 8:35 EDT , Physical Exam Const alert, oriented x3 and no apparent distress General Appearance: cooperative HEENT normocephalic and head/scalp atraumatic Eyes PERRL and EOMs intact bilaterally Neck supple General: trachea midline Chest inspection of chest normal Resp Effort and Inspection: tachypneic Auscultation: rales and diminished lung sounds Cardio regular rate and regular rhythm GI normal to inspection, nondistended, normoactive bowel sounds Extremity no clubbing, cyanosis or edema Skin no rashes or lesions noted Neuro CN's II-XII intact bilaterally, moves all extremities and no focal motor deficits Psych Mood & Affect: flat affect Charges/Coding Visit Charges Inpatient E&M: [id number] Subs Hosp L3
[2023-07-23] MEDS: Ensure Plus High Protein 120 ML LIQUID PO ×3 (09:29→21:02)
[2023-07-23] MEDS: Heparin Injection (Vial) 5,000 UNIT/ML VIAL 5000 UNIT SC ×2 (09:29→21:05)
[2023-07-23] MEDS: Tamsulosin HCl 0.4 MG Capsule PO (09:29)
--- NOTE | 2023-07-23 09:51 | CASEMGMT ---
Social Work SW met w/pt, and pt's brother, offered support. SW remains available for discharge needs along w/CM and ongoing support. TASIA Patel
--- NOTE | 2023-07-23 10:16 | PN_ITS ---
Subjective Subjective Patient seen and examined. His brother was by his bedside. He remains on Airvo. His tachypnea has improved. Review of systems otherwise negative. Objective Data Objective Data Vital Signs: Vital Signs Temp Pulse Resp BP Pulse Ox O2 Del Method O2 Flow Rate 96.8 F L 72 23 H 154/65 H 94 Airvo 60 07/23/23 10:00 07/23/23 10:00 07/23/23 10:00 07/23/23 10:00 07/23/23 10:00 07/23/23 10:00 07/23/23 10:00 FiO2 50 07/23/23 10:00 Oxygen Flow Rate (L/min) 60 Oxygen Delivery Method Airvo Weight: 201 lb 11.567 oz Body Mass Index (BMI) 28.2 Intake & Output: Intake and Output for Last 24 Hours 07/21/23 07/22/23 07/23/23 23:59 23:59 23:59 Intake Total 650 / 650 150 / 150 Output Total 2975 / 3275 1735 / 1735 375 / 375 Balance -2325 / -2625 -1585 / -1585 -375 / -375 Lab / Micro Data 07/23/23 03:49 07/23/23 03:49 Labs: Laboratory Results - last 24 hr 07/23/23 03:49: WBC 18.1 H, RBC 3.63 L, Hgb 11.8 L, Hct 35.6 L, MCV 98.1 H, MCH 32.5 H, MCHC 33.1, RDW Std Deviation 47.1 H, RDW Coeff of Jose F 13.1, Plt Count 320, MPV 10.7, Immature Gran % (Auto) 1.700 H, Neut % (Auto) 89.9 H, Lymph % (Auto) 6.5 L, [place] % (Auto) 1.5, Eos % (Auto) 0.1, Baso % (Auto) 0.3, Absolute Neuts (auto) 16.3 H, Absolute Lymphs (auto) 1.18, Nucleated RBC % 0, Sodium 135 L, Potassium 4.1, Chloride 100, Carbon Dioxide 31.0, Anion Gap 4 L, BUN 28 H, Creatinine 0.58 L, Estim Creat Clear Calc 102.23, Est GFR (MDRD) Af Amer 180, Est GFR (MDRD) Non-Af 149, BUN/Creatinine Ratio 48.4 H, Glucose 187 H, Calcium 8.3 L Micro: Microbiology 07/18/23 22:44 Blood Culture (Wb) - Left Forearm Blood Culture - Preliminary No growth in 48 hours. 07/18/23 22:11 Blood Culture (Wb) - Anticubital Right Blood Culture - P reliminary No growth in 48 hours. 07/19/23 02:48 Sputum, Expectorated/Coughed Gram Stain - Final 07/19/23 02:48 Sputum, Expectorated/Coughed Respiratory Culture - Final Streptococcus group C 07/18/23 22:44 Mucosa - Nasopharyngeal Respiratory Panel (PCR) - Final RSV B 07/19/23 01:30 Nasal Secretion MRSA (PCR) - Final 07/19/23 03:03 Urine, Clean Catch Legionella Antigen - Final Legionella Antigen 07/19/23 03:03 Urine, Clean Catch Streptococcus pneumoniae Antigen (M - Final 07/18/23 22:44 Mucosa - Nose SARS-CoV-2, Influenza & RSV (PCR) - Final RSV Physical Exam Const alert and oriented x3 Constitutional Narrative: frail, weak General Appearance: cooperative HEENT normocephalic, head/scalp atraumatic, hearing grossly normal bilaterally and nasal mucous membranes and turbinates normal Eyes PERRL, EOMs intact bilaterally and conjunctivae normal Neck full ROM, no lymphadenopathy, supple and no JVD Lymph Lymphatic: no lymphadenopathy noted and no lymphedema noted Chest inspection of chest normal Resp Resp Narrative: diminished breath sounds bilaterally, bilateral crackles. Remains on Airvo. Effort and Inspection: tachypneic Cardio regular rate, regular rhythm, S1 normal heart sound, S2 normal heart sound, no murmurs and peripheral pulses 2+ throughout GI normal to inspection, nondistended, normoactive bowel sounds, soft to palpation, non-tender and non-distended Narrative: Back/Spine normal ROM Extremity normal to inspection, full ROM, normal capillary refill, no clubbing, cyanosis or edema, no calf tenderness and no pedal edema General Extremity: no tenderness to palpation of joints or extremities Skin no rashes or lesions noted General Skin Exam: no breakdown Neuro CN's II-XII intact bilaterally, moves all extremities, no focal motor deficits, no sensory deficits noted and deep tendon reflexes 2+ bilaterally Speech: speech normal Motor Exam: strength 5/5 throughout and general weakness Psych mental status grossly normal, thought process normal, cooperative and affect normal Appearance: appropriate Mood & Affect: flat affect Assessment & Plan Assessment/Plan (1) Sepsis without septic shock: (2) Urinary retention: (3) RSV infection: (4) Legionella pneumonia: (5) Acute hypoxic respiratory failure: PLAN: Plan #Acute hypoxic respiratory failure due to legionella and strep pneumonia and RSV * remains on Airvo * critical care on board * remains on IV levaquin * sputum culture positive for Strep grp C. * 2D echo showed EF of 60% with no evidence of diastolic dysfunction and mildly enlarged left atrium as well as trivial mitral valve insufficiency. * titrate oxygen to maintain sats >90% * in cumulative negative balance by 3L * IV solumedrol added on per critical care. * #Sepsis * Thought to be due to pneumonia. Was febrile with leukocytosis and an elevated lactic acid. This improved with hydration. Remains on Levaquin. * WBC today has trended down to 18.1 * critical care on board. #Acute urinary retention with BPH * has freeman catheter in situ * follows up with urology * on flomax * renal USG showed no evidence of hydronephrosis and showed a left renal cyst. * #Elevated liver enzymes * may be due to Legionella pneumonia * RUQ USG showed hepatomegaly with hepatic steatosis and mild ascites with no evidence of cholelithiasis. * Liver enzymes are trending downwards. * #Hyponatremia * resolved. * #Hypokalemia: resolved #Hypertension; amlodipine and losartan held on admission due to hypotension #Afib: s/p ablation. Was previously on eliquis and rate control meds, but now off both since he had ablation. Will monitor DVT prophylaxis: lovenox Charges/Coding Visit Charges Inpatient E&M: 13517 Subs Hosp L2
[2023-07-23] MEDS: guaiFENesin 1,200 MG Tablet 1200 MG PO ×2 (11:37→21:02)
[2023-07-23] MEDS: levoFLOXacin IV 750 MG/150 ML BAG 100 MG IV (21:01)
[2023-07-24] VITALS (20 sets, daily range): BP systolic 119–168; BP diastolic 59–87; PULSE 45–67; RESP 16–24; TEMP 36.2–36.5; O2SAT 90–98; BMI 28.3
[2023-07-24] MEDS: 0.9% Saline Lock 10 ML Syringe IV ×3 (03:56→23:05)
[2023-07-24 04:07] LABS: Absolute Lymphocyte Count 1.09 X10^3/uL (0.83-4.51); Absolute Neutrophil Count 19.1 X10^3/uL (2.0-7.7); Basophil# 0.11 X10^3/uL; Basophil% 0.5 % (0-1); Hematocrit 36.6 % (40-54); Hemoglobin 12.1 g/dL (13.0-16.5); Lymphocyte # 1.09 X10^3/ul (0.83-4.51); Lymphocyte % 5.2 % (19-41); Mean Corp Hgb Conc 33.1 g/dL (32-36); Mean Corpuscular Hgb 32.6 pg (27.0-32.0); Mean Corpuscular Volume 98.7 fL (80-94); Mean Platelet Vol. 10.1 fl (6.2-12.0); Monocyte% 2.4 % (0-10); NRBC Flagged by Analyzer 0 % (0-5); Neutrophil # 19.11 X10^3/uL (2.7-7.7); Neutrophil % 90.6 % (47-70); POSITIVE MORPHOLOGY YES; Platelet Count 363 K/mm3 (150-450); RBC Distribution Width CV 13.1 % (11.6-14.6); RBC Distribution Width SD 47.2 fl (35.1-43.9); Red Blood Count 3.71 M/mm3 (4.6-6.2); White Blood Count 21.1 K/mm3 (4.4-11.0)
[2023-07-24 04:22] LABS: Anion Gap 6 (5-15); BUN 30 mg/dL (7-18); BUN/Creat Ratio 43.1 RATIO (10-20); Calcium,Total 8.7 mg/dL (8.5-10.1); Chloride 102 mmol/L (98-107); EST Glomerular Filtration Rate 120 mL/min (>60); Est Glom Filt Rate - Afr Amer 145 mL/min (>60); Estimated Creatinine Clearance 102.48 ml/min; Glucose 188 mg/dL (74-106); Potassium 4.1 mmol/L (3.5-5.1); Sodium Level 138 mmol/L (136-145)
[2023-07-24 04:29] LABS: Differential Indicated SCAN CRITERIA MET
[2023-07-24] MEDS: Ipratropium/Albuterol Sulfate 3 ML AMPUL.NEB INHALATION ×3 (07:02→19:52)
--- NOTE | 2023-07-24 07:04 | PN.CC_ITS ---
Assessment & Plan Assessment/Plan (1) Acute hypoxic respiratory failure: (2) Legionella pneumonia: (3) Sepsis: PLAN: Plan RECOMMENDATIONS: 1. Continue supplemental oxygen and wean FiO2 for saturations greater than 90%. 2. Continue antimicrobials. Plan for patient to complete 10-day course of Levaquin. 3. Continue corticosteroids as ordered. 4. Continue appropriate DVT prophylaxis along with bronchodilator therapy. 5. The patient is medically stable for transfer out of the intensive care unit. IMPRESSIONS: 1. Acute hypoxemic respiratory failure Appears multifactorial and related to RSV and superimposed Legionella pneumonia. The patient has evidence of bilateral airspace disease on chest imaging. Oxygen status is slowly improving with supportive care. There was no pulmonary embolism identified. At this time, plan to continue supportive care with supplemental oxygen and antimicrobials as ordered. Surface echocardiogram was largely unrevealing. Continue corticosteroids as ordered. 2. History of BPH/elevated transaminases/hypertension/history of atrial fibrillation Complicates care, management, recovery and prognosis. Continue supportive care as noted above. This note was generated with [employer] dictation software. It may contain incorrect words, spelling, and punctuation that were not noted in checking the note before signing. Subjective Subjective The patient was seen and examined at the bedside this morning. Events from the last 24 hours have been reviewed. The patient is currently afebrile, hemodynamically stable and maintaining appropriate oxygen saturations on heated high flow oxygen with an FiO2 requirement of 45% and flow rate of 60 L/min. Overall, the patient's respiratory status is slowly improving. The patient is documented to be overall net -5.7 L for the hospitalization. White count is elevated at 21,000. Objective Data Objective Data The patient's most recent lab work, culture data and imaging studies have all been personally reviewed. Respiratory viral panel was positive for RSV. Urina ry Legionella antigen was positive. Vital Signs: Vital Signs Temp Pulse Resp BP Pulse Ox O2 Del Method O2 Flow Rate 97.1 F L 48 L 20 H 147/68 H 97 Airvo 60 07/24/23 07:00 07/24/23 07:00 07/24/23 07:00 07/24/23 07:00 07/24/23 07:00 07/24/23 07:00 07/24/23 07:00 FiO2 45 07/24/23 07:00 Oxygen Flow Rate (L/min) 60 Oxygen Delivery Method Airvo Weight: 202 lb 13.204 oz Body Mass Index (BMI) 28.3 Intake & Output: Intake and Output for Last 24 Hours 07/22/23 07/23/23 07/24/23 23:59 23:59 23:59 Intake Total 150 / 150 150 / 150 Output Total 1735 / 1735 1550 / 1550 415 / 415 Balance -1585 / -1585 -1400 / -1400 -415 / -415 Lab / Micro Data Attestation: I reviewed the patient's lab results. 07/24/23 04:01 07/24/23 04:01 Labs: Laboratory Results - last 24 hr 07/24/23 04:01: WBC 21.1 H, RBC 3.71 L, Hgb 12.1 L, Hct 36.6 L, MCV 98.7 H, MCH 32.6 H, MCHC 33.1, RDW Std Deviation 47.2 H, RDW Coeff of Jose F 13.1, Plt Count 363, MPV 10.1, Immature Gran % (Auto) 1.300 H, Neut % (Auto) 90.6 H, Lymph % (Auto) 5.2 L, [place] % (Auto) 2.4, Eos % (Auto) 0.0, Baso % (Auto) 0.5, Absolute Neuts (auto) 19.1 H, Absolute Lymphs (auto) 1.09, Nucleated RBC % 0, Sodium 138, Potassium 4.1, Chloride 102, Carbon Dioxide 30.0, Anion Gap 6, BUN 30 H, Creatinine 0.70, Estim Creat Clear Calc 102.48, Est GFR (MDRD) Af Amer 145, Est GFR (MDRD) Non-Af 120, BUN/Creatinine Ratio 43.1 H, Glucose 188 H, Calcium 8.7 Micro: Microbiology 07/18/23 22:44 Blood Culture (Wb) - Left Forearm Blood Culture - Preliminary No growth in 48 hours. 07/18/23 22:11 Blood Culture (Wb) - Anticubital Right Blood Culture - Pre liminary No growth in 48 hours. 07/19/23 02:48 Sputum, Expectorated/Coughed Gram Stain - Final 07/19/23 02:48 Sputum, Expectorated/Coughed Respiratory Culture - Final Streptococcus group C 07/18/23 22:44 Mucosa - Nasopharyngeal Respiratory Panel (PCR) - Final RSV B 07/19/23 01:30 Nasal Secretion MRSA (PCR) - Final 07/19/23 03:03 Urine, Clean Catch Legionella Antigen - Final Legionella Antigen 07/19/23 03:03 Urine, Clean Catch Streptococcus pneumoniae Antigen (M - Final 07/18/23 22:44 Mucosa - Nose SARS-CoV-2, Influenza & RSV (PCR) - Final RSV Radiography Diagnostic Testing: Radiology Impression Chest X-Ray 07/21/23 07:45 IMPRESSION: Diffuse bilateral patchy areas of alveolar infiltrates worse in the right hemithorax with a small right pleural effusion. Electronically Signed: Arsenio Magana MD at 8:35 EDT , Physical Exam Const alert, oriented x3 and no apparent distress General Appearance: cooperative HEENT normocephalic and head/scalp atraumatic Eyes PERRL and EOMs intact bilaterally Neck supple General: trachea midline Chest inspection of chest normal Resp Effort and Inspection: tachypneic Auscultation: rales and diminished lung sounds Cardio regular rate and regular rhythm GI normal to inspection, nondistended, normoactive bowel sounds Extremity no clubbing, cyanosis or edema Skin no rashes or lesions noted Neuro CN's II-XII intact bilaterally, moves all extremities and no focal motor deficits Psych Mood & Affect: flat affect Charges/Coding Visit Charges Inpatient E&M: 79974 Subs Hosp L2
[2023-07-24 07:13] LABS: Atypical Lymphocyte 1+ %
[2023-07-24] MEDS: Tamsulosin HCl 0.4 MG Capsule PO (07:52)
[2023-07-24] MEDS: guaiFENesin 1,200 MG Tablet 1200 MG PO ×2 (07:56→23:31)
[2023-07-24] MEDS: Ensure Plus High Protein 120 ML LIQUID PO ×3 (07:56→18:06)
[2023-07-24] MEDS: Heparin Injection (Vial) 5,000 UNIT/ML VIAL 5000 UNIT SC ×2 (07:56→21:43)
--- NOTE | 2023-07-24 11:20 | CON.PCM.ID_ITS ---
Assessment & Plan Assessment/Plan (1) Sepsis without septic shock: (2) RSV infection: (3) Legionella pneumonia: PLAN: On levaquin for planned 10 day course. With new diarrhea this AM, will also check cdiff. Will follow, thank you (4) Acute hypoxic respiratory failure: HPI Consult Data Date of Consult: 07/24/23 HPI Narrative Reason for Consultation: pneumonia HPI Narrative: GEORGE ANAND, is a 68 M with h/o afib, bph, htn, presented 07/18 with a week progressive dyspnea, cough, congestion, fatigue, diarrhea. Went trip to [place], stayed with daughter, but did go to [employer]. also with URI. He developed acute onset fever, chills, came to ED. Admitted to icu, found to be legionella, strep, and RSV (+). On airvo, levaquin, iv steroids, feeling better. C/o new diarrhea this AM, no abd pain. Full ROS performed and neg except as noted above. [facility] Medical History Atrial fibrillation BPH (benign prostatic hyperplasia) GERD (gastroesophageal reflux disease) Hyperlipidemia Hypertension Inguinal hernia Home Medications tamsulosin 0.4 mg capsule 0.4 mg PO BID 06/05/16 [History Last Taken 06/16/16] amlodipine 10 mg tablet 10 mg PO DAILY 07/18/23 [History Last Taken Unknown] losartan 50 mg tablet 50 mg PO DAILY 07/18/23 [History Last Taken Unknown] tadalafil 20 mg tablet 20 mg PO DAILY PRN BPH 07/18/23 [History Last Taken Unknown] Allergy/AdvReac Type Severity Reaction Status Date / Time No Known Allergies Allergy Verified 07/18/23 21:59 Surgical History H/O cardiac radiofrequency ablation Social History Smoking Status: Former smoker Physical Exam Const alert, oriented x3 and no apparent distress General Appearance: cooperative HEENT normocephalic and head/scalp atraumatic Eyes PERRL and EOMs intact bilaterally Neck supple and No nodes Resp Auscultation: diminished lung sounds Cardio no murmurs Rate: bradycardia GI soft to palpation, non-tender and non-distended Extremity General Extremity: Negative for edema Skin no rashes or lesions noted Neuro CN's II-XII intact bilaterally Lab / Micro Data Attestation: I reviewed the patient's lab results. 07/24/23 04:01 07/24/23 04:01 Labs: Laboratory Results - last 24 hr 07/24/23 04:01: WBC 21.1 H, RBC 3.71 L, Hgb 12.1 L, Hct 36.6 L, MCV 98.7 H, MCH 32.6 H, MCHC 33.1, RDW Std Deviation 47.2 H, RDW Coeff of Jose F 13.1, Plt Count 363, MPV 10.1, Immature Gran % (Auto) 1.300 H, Neut % (Auto) 90.6 H, Lymph % (Auto) 5.2 L, [place] % (Auto) 2.4, Eos % (Auto) 0.0, Baso % (Auto) 0.5, Absolute Neuts (auto) 19.1 H, Absolute Lymphs (auto) 1.09, Nucleated RBC % 0, Atypical Lymphocytes 1+, Sodium 138, Potassium 4.1, Chloride 102, Carbon Dioxide 30.0, Anion Gap 6, BUN 30 H, Creatinine 0.70, Estim Creat Clear Calc 102.48, Est GFR (MDRD) Af Amer 145, Est GFR (MDRD) Non-Af 120, BUN/Creatinine Ratio 43.1 H, Glucose 188 H, Calcium 8.7 Micro: Microbiology 07/18/23 22:44 Blood Culture (Wb) - Left Forearm Blood Culture - Final No growth in 5 days. 07/18/23 22:11 Blood Culture (Wb) - Anticubital Right Blood Culture - Final No growth in 5 days.
[2023-07-24] MEDS: levoFLOXacin IV 750 MG/150 ML BAG 100 MG IV (21:43)
[2023-07-24] MEDS: hydrALAZINE 20 MG/ML Vial 10 MG IV (23:05)
[2023-07-25] VITALS (9 sets, daily range): BP systolic 135–156; BP diastolic 58–65; PULSE 61–90; RESP 16–24; TEMP 35.7–36.6; O2SAT 92–98; BMI 28.8
[2023-07-25 05:34] LABS: Absolute Lymphocyte Count 0.96 X10^3/uL (0.83-4.51); Basophil# 0.05 X10^3/uL; Basophil% 0.3 % (0-1); Hemoglobin 11.7 g/dL (13.0-16.5); Lymphocyte # 0.96 X10^3/ul (0.83-4.51); Lymphocyte % 6.1 % (19-41); Mean Corp Hgb Conc 32.5 g/dL (32-36); Mean Corpuscular Hgb 32.1 pg (27.0-32.0); Mean Corpuscular Volume 98.9 fL (80-94); Mean Platelet Vol. 9.8 fl (6.2-12.0); Monocyte# 0.41 X10^3/uL; Monocyte% 2.6 % (0-10); NRBC Flagged by Analyzer 0 % (0-5); Neutrophil # 14.02 X10^3/uL (2.7-7.7); Neutrophil % 89.3 % (47-70); Platelet Count 347 K/mm3 (150-450); RBC Distribution Width SD 46.9 fl (35.1-43.9); Red Blood Count 3.64 M/mm3 (4.6-6.2); White Blood Count 15.7 K/mm3 (4.4-11.0)
--- NOTE | 2023-07-25 05:43 | CPS ---
Pt on 7L HFNC, spo2 96. Did not want to wear bipap.
[2023-07-25 06:01] LABS: Anion Gap 3 (5-15); BUN 24 mg/dL (7-18); BUN/Creat Ratio 42.2 RATIO (10-20); Calcium,Total 8.3 mg/dL (8.5-10.1); Chloride 102 mmol/L (98-107); Creatinine, Serum 0.57 mg/dL (0.70-1.30); EST Glomerular Filtration Rate 151 mL/min (>60); Est Glom Filt Rate - Afr Amer 183 mL/min (>60); Estimated Creatinine Clearance 103.18 ml/min; Glucose 193 mg/dL (74-106); Potassium 4.4 mmol/L (3.5-5.1); Sodium Level 136 mmol/L (136-145)
[2023-07-25] MEDS: Ipratropium/Albuterol Sulfate 3 ML AMPUL.NEB INHALATION ×4 (07:28→19:43)
[2023-07-25] MEDS: Ensure Plus High Protein 120 ML LIQUID PO ×3 (08:59→21:54)
[2023-07-25] MEDS: Tamsulosin HCl 0.4 MG Capsule PO (09:34)
[2023-07-25] MEDS: guaiFENesin 1,200 MG Tablet 1200 MG PO ×2 (09:34→21:54)
[2023-07-25] MEDS: Heparin Injection (Vial) 5,000 UNIT/ML VIAL 5000 UNIT SC ×2 (09:34→21:54)
--- NOTE | 2023-07-25 11:41 | PN_ITS ---
Subjective Subjective Patient seen and examined. He is looking much better and feels much better. He is down to 5 L of oxygen. He denies any chest pain, palpitations, dizziness, nausea or vomiting or any other symptoms. Review of systems otherwise negative. Objective Data Objective Data Vital Signs: Vital Signs Temp Pulse Resp BP Pulse Ox O2 Del Method O2 Flow Rate 97.6 F L 66 24 H 135/58 H 95 High Flow 8 07/25/23 08:56 07/25/23 11:29 07/25/23 11:29 07/25/23 08:56 07/25/23 10:32 07/25/23 08:56 07/25/23 10:32 FiO2 45 07/24/23 09:00 Oxygen Flow Rate (L/min) 8 Oxygen Delivery Method High Flow Weight: 205 lb 14.588 oz Body Mass Index (BMI) 28.8 Intake & Output: Intake and Output for Last 24 Hours 07/23/23 07/24/23 07/25/23 23:59 23:59 23:59 Intake Total 150 / 150 1070 / 1510 440 / 440 Output Total 1550 / 1550 1715 / 1715 Balance -1400 / -1400 -645 / -205 440 / 440 Lab / Micro Data 07/25/23 05:20 07/25/23 05:20 Labs: Laboratory Results - last 24 hr 07/25/23 05:20: WBC 15.7 H, RBC 3.64 L, Hgb 11.7 L, Hct 36.0 L, MCV 98.9 H, MCH 32.1 H, MCHC 32.5, RDW Std Deviation 46.9 H, RDW Coeff of Jose F 13.0, Plt Count 347, MPV 9.8, Immature Gran % (Auto) 1.700 H, Neut % (Auto) 89.3 H, Lymph % (Auto) 6.1 L, [place] % (Auto) 2.6, Eos % (Auto) 0.0, Baso % (Auto) 0.3, Absolute Neuts (auto) 14.0 H, Absolute Lymphs (auto) 0.96, Nucleated RBC % 0, Sodium 136, Potassium 4.4, Chloride 102, Carbon Dioxide 31.0, Anion Gap 3 L, BUN 24 H, Creatinine 0.57 L, Estim Creat Clear Calc 103.18, Est GFR (MDRD) Af Amer 183, Est GFR (MDRD) Non-Af 151, BUN/Creatinine Ratio 42.2 H, Glucose 193 H, Calcium 8.3 L Micro: Microbiology 07/24/23 11:55 Stool Clostridioides difficile (PCR) - Final 07/18/23 22:44 Blood Culture (Wb) - Left Forearm Blood Culture - Final No growth in 5 days. 07/18/23 22:11 Blood Culture (Wb) - Anticubital Right Blood Culture - Final No growth in 5 days. 07/19/23 02:48 Sputum, Expectorated/Coughed Gram Stain - Final 07/19/23 02:48 Sputum, Expectorated/Coughed Respiratory Culture - Final Streptococcus group C 07/18/23 22:44 Mucosa - Nasopharyngeal Respiratory Panel (PCR) - Final RSV B 07/19/23 01:30 Nasal Secretion MRSA (PCR) - Final 07/19/23 03:03 Urine, Clean Catch Legionella Antigen - Final Legionella Antigen 07/19/23 03:03 Urine, Clean Catch Streptococcus pneumoniae Antigen (M - Final 07/18/23 22:44 Mucosa - Nose SARS-CoV-2, Influenza & RSV (PCR) - Final RSV Physical Exam Const alert and oriented x3 Constitutional Narrative: looks much better today General Appearance: cooperative HEENT normocephalic, head/scalp atraumatic, hearing grossly normal bilaterally and nasal mucous membranes and turbinates normal Eyes PERRL, EOMs intact bilaterally and conjunctivae normal Neck full ROM, no lymphadenopathy, supple and no JVD Lymph Lymphatic: no lymphadenopathy noted and no lymphedema noted Chest inspection of chest normal Resp Resp Narrative: diminished breath sounds bilaterally, bilateral crackles. now on 5L of oxygen by nasal canula Effort and Inspection: tachypneic and respiratory distress Cardio regular rate, regular rhythm, S1 normal heart sound, S2 normal heart sound, no murmurs and peripheral pulses 2+ throughout GI normal to inspection, nondistended, normoactive bowel sounds, soft to palpation, non-tender and non-distended Narrative: Back/Spine normal ROM Extremity normal to inspection, full ROM, normal capillary refill, no clubbing, cyanosis or edema, no calf tenderness and no pedal edema General Extremity: no tenderness to palpation of joints or extremities Skin no rashes or lesions noted General Skin Exam: no breakdown Neuro CN's II-XII intact bilaterally, moves all extremities, no focal motor deficits, no sensory deficits noted and deep tendon reflexes 2+ bilaterally Speech: speech normal Motor Exam: strength 5/5 throughout and general weakness Psych mental status grossly normal, thought process normal, cooperative and affect normal Appearance: appropriate Mood & Affect: flat affect Assessment & Plan Assessment/Plan (1) Sepsis without septic shock: (2) Urinary retention: (3) RSV infection: (4) Legionella pneumonia: (5) Acute hypoxic respiratory failure: PLAN: Plan #Acute hypoxic respiratory failure due to legionella and strep pneumonia and RSV * now down to 5L of oxygen. Feels much better. * critical care on board * remains on IV levaquin * sputum culture positive for Strep grp C. * 2D echo showed EF of 60% with no evidence of diastolic dysfunction and mildly enlarged left atrium as well as trivial mitral valve insufficiency. * titrate oxygen to maintain sats >90% * also on IV solumedrol * #Sepsis * Thought to be due to pneumonia. Was febrile with leukocytosis and an elevated lactic acid. This improved with hydration. Remains on Levaquin. * WBC today has trended down to 15.7 * critical care on board. #Acute urinary retention with BPH * has freeman catheter in situ * follows up with urology * on flomax * renal USG showed no evidence of hydronephrosis and showed a left renal cyst. * #Elevated liver enzymes * may be due to Legionella pneumonia * RUQ USG showed hepatomegaly with hepatic steatosis and mild ascites with no evidence of cholelithiasis. * Liver enzymes are trending downwards. * #Hyponatremia * resolved. * #Hypokalemia: resolved #Hypertension; amlodipine and losartan resumed #Afib: s/p ablation. Was previously on eliquis and rate control meds, but now off both since he had ablation. Will monitor DVT prophylaxis: lovenox Charges/Coding Visit Charges Inpatient E&M: 76989 Subs Hosp L2
--- NOTE | 2023-07-25 13:04 | PN.CC_ITS ---
Objective Data Objective Data Vital Signs: Vital Signs Last response Temperature 36.4 C L 07/25/23 08:56 Temperature Source Oral 07/25/23 08:56 Pulse Rate 66 07/25/23 11:29 Pulse Strength Normal (2+) 07/25/23 08:39 Respiratory Rate 24 H 07/25/23 11:29 Respiratory Effort Short of Breath 07/25/23 07:40 Respiratory Depth Shallow 07/25/23 07:40 Respiratory Pattern Normal 07/25/23 07:40 Blood Pressure 135/58 H 07/25/23 08:56 Blood Pressure Mean 83 07/25/23 08:56 Blood Pressure Source Monitor 07/25/23 08:56 Blood Pressure Position Sitting 07/25/23 08:56 Blood Pressure Location Left Arm 07/25/23 08:56 Pulse Ox 95 07/25/23 10:32 Oxygen Delivery Method High Flow 07/25/23 08:56 Oxygen Flow Rate (L/min) 8 07/25/23 10:32 Fraction of Inspired Oxygen (FIO2) 45 07/24/23 09:00 I&O: I&O Last 24 Hours 07/24/23 07/25/23 07/25/23 23:59 11:59 23:59 Intake Total 1070 / 1510 440 / 440 Output Total 1300 / 1715 Balance -230 / -205 440 / 440 I&O: Total Stay 07/18/23 21:58 thru 07/25/23 03:59 Intake Total 6037.45 Output Total 28094 Balance -5537.55 Current Meds Ordered / Administered: Current meds ordered / Administered Generic Name Dose Route Start Last Admin Trade Name Galloq PRN Reason Stop Dose Admin Acetaminophen 650 mg 07/19/23 01:19 07/21/23 19:43 Acetaminophen 325 Mg Tablet PO 650 mg Q6H PRN PRN Administration Pain 1-10 Or Fever>100.7 Albuterol Sulfate 2.5 mg 07/19/23 08:21 Albuterol 2.5 Mg/3 Ml Vial.Neb. INHALATION Q2H PRN PRN SHORTNESS OF BREATH Albuterol/Ipratropium 3 ml 07/21/23 09:00 07/25/23 11:29 Ipratropium/Albuterol Sulfate 3 Ml Ampul.Neb INHALATION 3 ml Q4HWA.RT HAILEY Administration Amlodipine Besylate 10 mg 07/26/23 10:00 Amlodipine 10 Mg Tablet PO DAILY [facility] Protocol Chlorhexidine Gluconate 1 each 07/23/23 10:00 07/25/23 08:56 Chlorhexidine Gluc 2% Cloth 1 Each [place] TOPICAL Not Given DAILY [facility] Guaifenesin 1,200 mg 07/19/23 10:00 07/25/23 09:34 Guaifenesin 1,200 Mg Tablet PO 1,200 mg BID HAILEY Administration Heparin Sodium (Porcine) 5,000 unit 07/19/23 10:00 07/25/23 09:34 Heparin Injection (Vial) 5,000 Unit/Ml Vial SC 5,000 unit Q12 HAILEY Administration Hydralazine HCl 10 mg 07/23/23 22:31 07/24/23 23:05 Hydralazine 20 Mg/Ml Vial IV 10 mg Q4H PRN PRN Administration SBP > 160 Protocol Sodium Chloride 250 mls @ 15 mls/hr 07/19/23 01:33 IV .[id number] PRN Additional IVPB Infusion Sodium Chloride 250 mls @ 15 mls/hr 07/19/23 01:33 IV .[id number] PRN Saline Flush Levofloxacin 750 mg in 150 mls @ 100 mls/hr 07/19/23 03:15 07/24/23 23:30 Levaquin Iv IV 07/27/23 23:29 Infused 2200 HAILEY Infusion Losartan Potassium 50 mg 07/26/23 10:00 Losartan Potassium 50 Mg Tablet PO DAILY [facility] Protocol Methylprednisolone 40 mg 07/22/23 12:00 07/25/23 11:31 Methylprednisolone 40 Mg/Ml Vial IV 40 mg Q6 HAILEY Administration Nutritional Formula (Lactose Free) 120 ml 07/20/23 10:00 07/25/23 08:59 Ensure Plus High Protein 120 Ml Liquid PO 120 ml 4X/DAY HAILEY Administration Ondansetron HCl 4 mg 07/19/23 01:19 Ondansetron 4 Mg/2 Ml Vial IV Q8H PRN PRN NAUSEA/VOMITING Sodium Chloride 10 - 40 ml 07/19/23 01:33 07/24/23 23:05 0.9% Saline Lock 10 Ml Syringe IV 10 ml UD PRN Administration SALINE FLUSH Tamsulosin HCl 0.4 mg 07/19/23 10:00 07/25/23 09:34 Tamsulosin Hcl 0.4 Mg Capsule PO 0.4 mg DAILY HAILEY Administration Lab / Micro Data 07/25/23 05:20 07/25/23 05:20 Labs: Laboratory Results - last 24 hr 07/25/23 05:20: WBC 15.7 H, RBC 3.64 L, Hgb 11.7 L, Hct 36.0 L, MCV 98.9 H, MCH 32.1 H, MCHC 32.5, RDW Std Deviation 46.9 H, RDW Coeff of Jose F 13.0, Plt Count 347, MPV 9.8, Immature Gran % (Auto) 1.700 H, Neut % (Auto) 89.3 H, Lymph % (Auto) 6.1 L, Cooper % (Auto) 2.6, Eos % (Auto) 0.0, Baso % (Auto) 0.3, Absolute Neuts (auto) 14.0 H, Absolute Lymphs (auto) 0.96, Nucleated RBC % 0, Sodium 136, Potassium 4.4, Chloride 102, Carbon Dioxide 31.0, Anion Gap 3 L, BUN 24 H, Creatinine 0.57 L, Estim Creat Clear Calc 103.18, Est GFR (MDRD) Af Amer 183, Est GFR (MDRD) Non-Af 151, BUN/Creatinine Ratio 42.2 H, Glucose 193 H, Calcium 8.3 L Micro: Microbiology 07/24/23 11:55 Stool Clostridioides difficile (PCR) - Final Assessment and Plan . Assessment and plan: Patient seen and examined Chart and data reviewed He is awake and alert, appears comfortable Breathing 4 LPM O2 comfortably at rest GEN NAD COR RRR CHEST coarse ABD soft EXT no edema LINNEA NF IMP Resolving acute respiratory failure w/ hypoxemia RSV infection Legionella PNA REC -supplemental O2 as needed -anti-bacterials -wean steroids off -VTE ppx -mobilize We are available as needed. The entirety of this encounter was done via Telemedicine
[2023-07-25] MEDS: 0.9% Saline Lock 10 ML Syringe IV (17:03)
[2023-07-25] MEDS: levoFLOXacin IV 750 MG/150 ML BAG 100 MG IV (21:54)
[2023-07-26] VITALS (11 sets, daily range): BP systolic 118–154; BP diastolic 55–86; PULSE 60–91; RESP 16–25; TEMP 36–36.6; O2SAT 94–98; BMI 28.5
[2023-07-26 05:58] LABS: Absolute Lymphocyte Count 1.05 X10^3/uL (0.83-4.51); Absolute Neutrophil Count 14.8 X10^3/uL (2.0-7.7); Basophil# 0.03 X10^3/uL; Basophil% 0.2 % (0-1); Eosinophil# 0.01 X10^3/uL; Eosinophils% 0.1 % (0-5); Hematocrit 35.9 % (40-54); Hemoglobin 11.8 g/dL (13.0-16.5); Lymphocyte # 1.05 X10^3/ul (0.83-4.51); Lymphocyte % 6.3 % (19-41); Mean Corp Hgb Conc 32.9 g/dL (32-36); Mean Corpuscular Hgb 32.9 pg (27.0-32.0); Mean Platelet Vol. 9.5 fl (6.2-12.0); Monocyte# 0.55 X10^3/uL; Monocyte% 3.3 % (0-10); NRBC Flagged by Analyzer 0 % (0-5); Neutrophil # 14.78 X10^3/uL (2.7-7.7); Neutrophil % 88.7 % (47-70); Platelet Count 352 K/mm3 (150-450); RBC Distribution Width CV 13.1 % (11.6-14.6); RBC Distribution Width SD 48.5 fl (35.1-43.9); Red Blood Count 3.59 M/mm3 (4.6-6.2); White Blood Count 16.7 K/mm3 (4.4-11.0)
[2023-07-26 06:16] LABS: Anion Gap 4 (5-15); BUN 22 mg/dL (7-18); BUN/Creat Ratio 40.3 RATIO (10-20); Calcium,Total 8.3 mg/dL (8.5-10.1); Chloride 104 mmol/L (98-107); Creatinine, Serum 0.55 mg/dL (0.70-1.30); EST Glomerular Filtration Rate 159 mL/min (>60); Est Glom Filt Rate - Afr Amer 192 mL/min (>60); Estimated Creatinine Clearance 102.63 ml/min; Glucose 175 mg/dL (74-106); Potassium 4.7 mmol/L (3.5-5.1); Sodium Level 137 mmol/L (136-145)
[2023-07-26] MEDS: Ipratropium/Albuterol Sulfate 3 ML AMPUL.NEB INHALATION ×4 (07:25→19:56)
--- NOTE | 2023-07-26 10:00 | PN_ITS ---
Subjective Subjective Patient seen and examined. He states he continues to feel much better and his shortness of breath has improved. However slight exertion patient's gets short of breath. He is down to 4 L of oxygen. Review of systems otherwise negative. He has otherwise remained hemodynamically stable. Objective Data Objective Data Vital Signs: Vital Signs Temp Pulse Resp BP Pulse Ox O2 Del Method O2 Flow Rate 96.8 F L 60 25 H 154/65 H 94 Nasal Cannula 4 07/26/23 03:00 07/26/23 07:25 07/26/23 07:25 07/26/23 03:00 07/26/23 08:19 07/26/23 08:19 07/26/23 09:00 FiO2 45 07/24/23 09:00 Oxygen Flow Rate (L/min) 4 Oxygen Delivery Method Nasal Cannula Weight: 203 lb 7.787 oz Body Mass Index (BMI) 28.5 Intake & Output: Intake and Output for Last 24 Hours 07/24/23 07/25/23 07/26/23 23:59 23:59 23:59 Intake Total 1070 / 1510 790 / 1450 810 / 810 Output Total 1715 / 1715 950 / 2175 1225 / 1225 Balance -645 / -205 -160 / -725 -415 / -415 Lab / Micro Data 07/26/23 05:20 07/26/23 05:20 Labs: Laboratory Results - last 24 hr 07/26/23 05:20: WBC 16.7 H, RBC 3.59 L, Hgb 11.8 L, Hct 35.9 L, MCV 100.0 H, MCH 32.9 H, MCHC 32.9, RDW Std Deviation 48.5 H, RDW Coeff of Jose F 13.1, Plt Count 352, MPV 9.5, Immature Gran % (Auto) 1.400 H, Neut % (Auto) 88.7 H, Lymph % (Auto) 6.3 L, [place] % (Auto) 3.3, Eos % (Auto) 0.1, Baso % (Auto) 0.2, Absolute Neuts (auto) 14.8 H, Absolute Lymphs (auto) 1.05, Nucleated RBC % 0, Sodium 137, Potassium 4.7, Chloride 104, Carbon Dioxide 29.0, Anion Gap 4 L, BUN 22 H, Creat inine 0.55 L, Estim Creat Clear Calc 102.63, Est GFR (MDRD) Af Amer 192, Est GFR (MDRD) Non-Af 159, BUN/Creatinine Ratio 40.3 H, Glucose 175 H, Calcium 8.3 L Micro: Microbiology 07/24/23 11:55 Stool Clostridioides difficile (PCR) - Final 07/18/23 22:44 Blood Culture (Wb) - Left Forearm Blood Culture - Final No growth in 5 days. 07/18/23 22:11 Blood Culture (Wb) - Anticubital Right Blood Culture - Final No growth in 5 days. 07/19/23 02:48 Sputum, Expectorated/Coughed Gram Stain - Final 07/19/23 02:48 Sputum, Expectorated/Coughed Respiratory Culture - Final Streptococcus group C 07/18/23 22:44 Mucosa - Nasopharyngeal Respiratory Panel (PCR) - Final RSV B 07/19/23 01:30 Nasal Secretion MRSA (PCR) - Final 07/19/23 03:03 Urine, Clean Catch Legionella Antigen - Final Legionella Antigen 07/19/23 03:03 Urine, Clean Catch Streptococcus pneumoniae Antigen (M - Final 07/18/23 22:44 Mucosa - Nose SARS-CoV-2, Influenza & RSV (PCR) - Final RSV Physical Exam Const alert and oriented x3 Constitutional Narrative: continues to look much better by the day. General Appearance: cooperative HEENT normocephalic, head/scalp atraumatic, hearing grossly normal bilaterally and nasal mucous membranes and turbinates normal Eyes PERRL, EOMs intact bilaterally and conjunctivae normal Neck full ROM, no lymphadenopathy, supple and no JVD Lymph Lymphatic: no lymphadenopathy noted and no lymphedema noted Chest inspection of chest normal Resp Resp Narrative: diminished breath sounds bilaterally, bilateral crackles. now down to 4L of oxygen by nasal canula Cardio regular rate, regular rhythm, S1 normal heart sound, S2 normal heart sound, no murmurs and peripheral pulses 2+ throughout GI normal to inspection, nondistended, normoactive bowel sounds, soft to palpation, non-tender and non-distended Narrative: Back/Spine normal ROM Extremity normal to inspection, full ROM, normal capillary refill, no clubbing, cyanosis or edema, no calf tenderness and no pedal edema General Extremity: no tenderness to palpation of joints or extremities Skin no rashes or lesions noted General Skin Exam: no breakdown Neuro CN's II-XII intact bilaterally, moves all extremities, no focal motor deficits, no sensory deficits noted and deep tendon reflexes 2+ bilaterally Speech: speech normal Motor Exam: strength 5/5 throughout and general weakness Psych mental status grossly normal, thought process normal, cooperative and affect normal Appearance: appropriate Mood & Affect: flat affect Assessment & Plan Assessment/Plan (1) Sepsis without septic shock: (2) Urinary retention: (3) RSV infection: (4) Legionella pneumonia: (5) Acute hypoxic respiratory failure: PLAN: Plan #Acute hypoxic respiratory failure due to legionella and strep pneumonia and RSV * now down to 4L of oxygen. Feels much better. * critical care on board * remains on IV levaquin; to complete a 10 day course. * sputum culture positive for Strep grp C. * 2D echo showed EF of 60% with no evidence of diastolic dysfunction and mildly enlarged left atrium as well as trivial mitral valve insufficiency. * titrate oxygen to maintain sats >90% * now off IV solumedrol * #Sepsis * Thought to be due to pneumonia. Was febrile with leukocytosis and an elevated lactic acid. This improved with hydration. Remains on Levaquin. * WBC today is 16.7. Likely also affected by IV solumedrol #Acute urinary retention with BPH * has freeman catheter in situ * follows up with urology * on flomax * renal USG showed no evidence of hydronephrosis and showed a left renal cyst. * #Elevated liver enzymes * may be due to Legionella pneumonia * RUQ USG showed hepatomegaly with hepatic steatosis and mild ascites with no evidence of cholelithiasis. * Liver enzymes are trending downwards and improving. * #Hyponatremia * resolved. * #Hypokalemia: resolved #Hypertension; amlodipine and losartan resumed #Afib: s/p ablation. Was previously on eliquis and rate control meds, but now off both since he had ablation. Will monitor DVT prophylaxis: lovenox Charges/Coding Visit Charges Inpatient E&M: 80421 Subs Hosp L2
[2023-07-26] MEDS: Ensure Plus High Protein 120 ML LIQUID PO ×2 (10:19→16:34)
[2023-07-26] MEDS: Losartan Potassium 50 MG Tablet PO (10:19)
[2023-07-26] MEDS: guaiFENesin 1,200 MG Tablet 1200 MG PO ×2 (10:19→21:36)
[2023-07-26] MEDS: Heparin Injection (Vial) 5,000 UNIT/ML VIAL 5000 UNIT SC ×2 (10:19→21:36)
[2023-07-26] MEDS: amLODIPine 10 MG Tablet PO (10:19)
[2023-07-26] MEDS: Tamsulosin HCl 0.4 MG Capsule PO ×2 (10:19→23:39)
--- NOTE | 2023-07-26 18:48 | NURSING ---
Pt having no output since freeman pulled at 1400 except for a dribble. Bladder scan showed 230 and repeat showed [address] freeman again but pt refusing and asking to wait through the night. MD notified and aware. See physician communication.
[2023-07-26] MEDS: levoFLOXacin IV 750 MG/150 ML BAG 100 MG IV (21:36)
--- NOTE | 2023-07-26 22:07 | PCM.HOSP.N ---
Hospitalist Note Patient with recurrent urinary retention. Will add flomax BID to assist. Patient and family requesting Urology involvement. Will review with day team once arrive as no current Urology availability.
[2023-07-27] VITALS (12 sets, daily range): BP systolic 117–145; BP diastolic 61–73; PULSE 71–96; RESP 16–20; TEMP 36.3–36.8; O2SAT 88–97; BMI 28.3
[2023-07-27 06:57] LABS: Absolute Lymphocyte Count 1.27 X10^3/uL (0.83-4.51); Absolute Neutrophil Count 14.6 X10^3/uL (2.0-7.7); Basophil# 0.03 X10^3/uL; Basophil% 0.2 % (0-1); Eosinophil# 0.08 X10^3/uL; Eosinophils% 0.5 % (0-5); Hematocrit 37.5 % (40-54); Hemoglobin 12.1 g/dL (13.0-16.5); Lymphocyte # 1.27 X10^3/ul (0.83-4.51); Lymphocyte % 7.6 % (19-41); Mean Corp Hgb Conc 32.3 g/dL (32-36); Mean Corpuscular Hgb 32.4 pg (27.0-32.0); Mean Corpuscular Volume 100.3 fL (80-94); Mean Platelet Vol. 9.4 fl (6.2-12.0); Monocyte# 0.57 X10^3/uL; Monocyte% 3.4 % (0-10); NRBC Flagged by Analyzer 0 % (0-5); Neutrophil # 14.56 X10^3/uL (2.7-7.7); Neutrophil % 86.6 % (47-70); Platelet Count 323 K/mm3 (150-450); RBC Distribution Width CV 13.2 % (11.6-14.6); RBC Distribution Width SD 49.1 fl (35.1-43.9); Red Blood Count 3.74 M/mm3 (4.6-6.2); White Blood Count 16.8 K/mm3 (4.4-11.0)
[2023-07-27] MEDS: Ipratropium/Albuterol Sulfate 3 ML AMPUL.NEB INHALATION ×4 (07:08→20:07)
[2023-07-27 07:20] LABS: Magnesium 2.2 mg/dL (1.6-2.6)
[2023-07-27 07:22] LABS: Anion Gap 5 (5-15); BUN 22 mg/dL (7-18); BUN/Creat Ratio 34.1 RATIO (10-20); Calcium,Total 8.1 mg/dL (8.5-10.1); Chloride 102 mmol/L (98-107); Creatinine, Serum 0.64 mg/dL (0.70-1.30); EST Glomerular Filtration Rate 131 mL/min (>60); Est Glom Filt Rate - Afr Amer 158 mL/min (>60); Estimated Creatinine Clearance 102.43 ml/min; Glucose 122 mg/dL (74-106); Potassium 4.4 mmol/L (3.5-5.1); Sodium Level 135 mmol/L (136-145)
--- NOTE | 2023-07-27 07:41 | PCM.CONS.U ---
Assessment & Plan Assessment/Plan (1) Urinary retention: PLAN: Retention of urine okay to increase Flomax has done already, he may just have to go home with a Garcia catheter given the fact that he has failed voiding trials he can follow-up with established urologist in [place] for further workup and care call with questions. HPI Consult Data Date of Consult: 07/27/23 HPI Narrative Reason for Consultation: Urinary retention HPI Narrative: GEORGE ANAND, is a 68 M who presents to the hospital with worsening shortness of breath he has a history of atrial fibrillation usually takes Eliquis. He does have a urologist in [place] and had a UroLift procedure performed several years ago with Flomax he states has been urinating okay but with the sudden changes health he now has developed the retention of urine. Garcia catheter was removed the other day and he was not able to urinate after 8 hours Garcia catheter was replaced Flomax was increased to 2 pills daily. He also reported some gross hematuria. He also has an appointment already with his urologist in [place] to get a CAT scan to evaluate the hematuria. Explained to the patient that at this point I do not think any elective prostate surgery is advisable given that his health is not optimized. Also he has had a prior procedure by urologist in [place]. Explained to the patient that most likely is can have to go home once on discharge with a Garcia catheter in the follow-up with his established urologist in [place] and there is no indication for any emergency TURP surgery or prostate surgery at this point. He was agreeable with this plan. Call with questions. [facility] Medical History Atrial fibrillation BPH (benign prostatic hyperplasia) GERD (gastroesophageal reflux disease) Hyperlipidemia Hypertension Inguinal hernia Home Medications tamsulosin 0.4 mg capsule 0.4 mg PO BID 06/05/16 [History Last Taken 06/16/16] amlodipine 10 mg tablet 10 mg PO DAILY 07/18/23 [History Last Taken Unknown] losartan 50 mg tablet 50 mg PO DAILY 07/18/23 [History Last Taken Unknown] tadalafil 20 mg tablet 20 mg PO DAILY PRN BPH 07/18/23 [History Last Taken Unknown] Allergy/AdvReac Type Severity Reaction Status Date / Time No Known Allergies Allergy Verified 07/24/23 17:39 Surgical History H/O cardiac radiofrequency ablation Social History Smoking Status: Former smoker Physical Exam Const alert and oriented x3 General Appearance: cooperative HEENT normocephalic, head/scalp atraumatic, EAC's normal and TM's normal bilaterally Eyes PERRL and EOMs intact bilaterally Pupil: sluggish Neck no lymphadenopathy, supple and no JVD General: trachea midline Lymph Lymphatic: no lymphadenopathy noted, lymphedema and lymphadenopathy Resp normal respiratory effort, normal air movement and clear to auscultation bilaterally Cardio regular rate, regular rhythm and peripheral pulses 2+ throughout GI soft to palpation, non-tender and non-distended Extremity normal capillary refill and no clubbing, cyanosis or edema General Extremity: no tenderness to palpation of joints or extremities Skin no rashes or lesions noted General Skin Exam: turgor normal Lesions: no lesions Rashes: no rashes Neuro CN's II-XII intact bilaterally Speech: speech normal Motor Exam: strength 5/5 throughout; Negative for general weakness Psych thought process normal, cooperative and affect normal Appearance: appropriate Lab / Micro Data 07/27/23 06:02 07/27/23 06:02 Labs: Laboratory Results - last 24 hr 07/27/23 06:02: WBC 16.8 H, RBC 3.74 L, Hgb 12.1 L, Hct 37.5 L, MCV 100.3 H, MCH 32.4 H, MCHC 32.3, RDW Std Deviation 49.1 H, RDW Coeff of Jose F 13.2, Plt Count 323, MPV 9.4, Immature Gran % (Auto) 1.700 H, Neut % (Auto) 86.6 H, Lymph % (Auto) 7.6 L, [place] % (Auto) 3.4, Eos % (Auto) 0.5, Baso % (Auto) 0.2, Absolute Neuts (auto) 14.6 H, Absolute Lymphs (auto) 1.27, Nucleated RBC % 0, Sodium 135 L, Potassium 4.4, Chloride 102, Carbon Dioxide 28.0, Anion Gap 5, BUN 22 H, Creatinine 0.64 L, Estim Creat Clear Calc 102.43, Est GFR (MDRD) Af Amer 158, Est GFR (MDRD) Non-Af 131, BUN/Creatinine Ratio 34.1 H, Glucose 122 H, Calcium 8.1 L, Magnesium 2.2
[2023-07-27] MEDS: Nystatin Powder 15gm Bottle 1 APPLIC TOPICAL (09:31)
[2023-07-27] MEDS: Losartan Potassium 50 MG Tablet PO (09:32)
[2023-07-27] MEDS: Tamsulosin HCl 0.4 MG Capsule PO ×2 (09:32→21:31)
[2023-07-27] MEDS: Ensure Plus High Protein 120 ML LIQUID PO ×3 (09:32→21:30)
[2023-07-27] MEDS: amLODIPine 10 MG Tablet PO (09:33)
[2023-07-27] MEDS: Heparin Injection (Vial) 5,000 UNIT/ML VIAL 5000 UNIT SC ×2 (09:33→21:31)
[2023-07-27] MEDS: guaiFENesin 1,200 MG Tablet 1200 MG PO ×2 (09:33→21:31)
[2023-07-27] MEDS: 0.9% Saline Lock 10 ML Syringe IV ×2 (13:12→18:25)
[2023-07-27] MEDS: Furosemide 40 MG/4 ML Vial IV ×2 (13:12→18:25)
--- NOTE | 2023-07-27 14:18 | CHAPLAIN ---
Type of Pastoral Visit _x__ Initial Visit ___ Follow-up Visit ___ On-call Visit ___ General Patient Visit ___ Spiritual Assessment ___ Family Conference ___ Bereavement ___ Rapid Response ___ Code Blue ___ Other (describe below) Pastoral Care Referral From _x__ Patient ___ Family ___ Nurse ___ Physician ___ Knife Setter Assembler ___ Survey And Mapping Technician ___ Other (describe below) Sacrament/Intervention _x__ Active listening ___ Anointing ___ Latter-Day ___ Bereavement ___ Communion ___ Manjula exploration ___ ___ Life review _x__ Prayer ___ Reconciliation ___ Sacrament of Sick _x__ Supportive presence ___ Wedding ___ Other (describe below) Pastoral Comments patient explains his health situation and becomes somewhat short of breath; told pt that visit will be brief so not to aggravate the situation; pt tells of his concerns about going home with a catheter and O2; assured pt that staff will explain and give education before going home; offered a prayer and gave calm reassurances to his concerns
--- NOTE | 2023-07-27 16:14 | CASEMGMT ---
RN CM updated by hospitalist that patient and have concerns regarding discharge. RN CM in to discuss needs at discharge including possible oxygen, walker, and outpatient therapy. RN CM reviewed DME agencies and patient and would like [employer]. Discharge is anticipated for tomorrow. Patient and had no further questions or concerns. RN CM will continue to follow this patient and assists with needs.
--- NOTE | 2023-07-27 17:53 | PCM.PN.HOSP ---
Reason for Visit Reason for Visit: Shortness of breath/fatigue Subjective Subjective Mr. Webster is a 68-year-old white male who presented to the emergency department at [facility] on 07/19/2023 with worsening shortness of breath and fatigue. Patient reported that he was in generally good health at baseline and recently had returned from [place] for vacation by plane. They both had been experiencing upper respiratory infections for a few days after arriving back here and he had spontaneous improvement but continued to have worsening congestion and cough. He was seen by an urgent care a few days prior to presentation and had a negative COVID and flu test there. He was started on Mucinex and sent home however, his symptoms worsen and he developed mild fevers with worsening shortness of breath especially noted with exertion so he came to the emergency department for further evaluation. Vital signs on presentation showed a temperature of 98.5, heart rate 102, respiratory rate is 18, blood pressure was 159/58 and oxygen saturations were 85% on room air. He was placed on a nonrebreather with improvement to his oxygen saturations to 93%. Nonrebreather was at 15 L. Eventually require transition to heated high flow nasal cannula. In the emergency department he tested positive for RSV and his Legionella antigen was found to be positive. He had significant urinary retention and required Garcia placement. He does have previous history of BPH and is on Flomax daily. CTA of the chest showed significant bilateral pneumonia and severe airspace disease but was negative for PE. Given his respiratory distress on presentation he was admitted to the ICU and the roller stitcher was consulted. He was initially placed on broad-spectrum antibiotics and upon result of his Legionella antigen positivity he was transitioned to levofloxacin. All other cultures were found to be negative. He required Airvo for some time and we eventually were able to wean his oxygen to currently 2 to 3 L. An echocardiogram was done due to his persistent hypoxia which demonstrated EF of 60%, no diastolic dysfunction, trivial mitral valve insufficiency and mild left atrial enlargement. He was treated with supportive care and antibiotics for his legionnaires disease. Source is unclear however we suspect it was probably related to air conditioning in [place] somewhere. He is slowly continuing to improve clinically. With his urinary retention Garcia had to be replaced and urology was consulted. They recommended outpatient follow-up after discharge with continuation of his Garcia catheter and uptitrating his Flomax which had already been done. Patient is significantly better clinically. He resides in [place] at baseline but has a residence up here. His reports they plan to spend time here for an undefined period of time. They would like to follow-up with pulmonary medicine and urology here if possible. They plan on reestablishing with a primary care physician here as well. I have asked nursing to instruct him in catheter care and assessing pulse oximetry as we will supply a pulse oximeter for him at home at the time of discharge. Objective Data Objective Data Vital Signs: Vital Signs Temp Pulse Resp BP Pulse Ox O2 Del Method O2 Flow Rate 97.3 F L 90 18 131/73 H 96 Nasal Cannula 3 07/27/23 15:15 07/27/23 15:15 07/27/23 15:15 07/27/23 15:15 07/27/23 15:15 07/27/23 15:15 07/27/23 15:15 FiO2 45 07/24/23 09:00 Oxygen Flow Rate (L/min) [ 3 AMBULATING with Oxygen #1] Oxygen Flow Rate (L/min) [At 3 REST with Oxygen] Oxygen Flow Rate (L/min) [At 0 REST on Room Air] Oxygen Flow Rate (L/min) 3 Oxygen Delivery Method Nasal Cannula Weight: 91.9 kg Body Mass Index (BMI) 28.3 Intake & Output: Intake and Output for Last 24 Hours 07/25/23 07/26/23 07/27/23 23:59 23:59 23:59 Intake Total 790 / 1450 2240 / 2240 720 / 720 Output Total 950 / 2175 2750 / 2750 2975 / 2975 Balance -160 / -725 -510 / -510 -2255 / -2255 Lab / Micro Data 07/27/23 06:02 07/27/23 06:02 Labs: Laboratory Results - last 24 hr 07/27/23 06:02: WBC 16.8 H, RBC 3.74 L, Hgb 12.1 L, Hct 37.5 L, MCV 100.3 H, MCH 32.4 H, MCHC 32.3, RDW Std Deviation 49.1 H, RDW Coeff of Jose F 13.2, Plt Count 323, MPV 9.4, Immature Gran % (Auto) 1.700 H, Neut % (Auto) 86.6 H, Lymph % (Auto) 7.6 L, [place] % (Auto) 3.4, Eos % (Auto) 0.5, Baso % (Auto) 0.2, Absolute Neuts (auto) 14.6 H, Absolute Lymphs (auto) 1.27, Nucleated RBC % 0, Sodium 135 L, Potassium 4.4, Chloride 102, Carbon Dioxide 28.0, Anion Gap 5, BUN 22 H, Creatinine 0.64 L, Estim Creat Clear Calc 102.43, Est GFR (MDRD) Af Amer 158, Est GFR (MDRD) Non-Af 131, BUN/Creatinine Ratio 34.1 H, Glucose 122 H, Calcium 8.1 L, Magnesium 2.2 Micro: Microbiology 07/24/23 11:55 Stool Clostridioides difficile (PCR) - Final 07/18/23 22:44 Blood Culture (Wb) - Left Forearm Blood Culture - Final No growth in 5 days. 07/18/23 22:11 Blood Culture (Wb) - Anticubital Right Blood Culture - Final No growth in 5 days. 07/19/23 02:48 Sputum, Expectorated/Coughed Gram Stain - Final 07/19/23 02:48 Sputum, Expectorated/Coughed Respiratory Culture - Final Streptococcus group C 07/18/23 22:44 Mucosa - Nasopharyngeal Respiratory Panel (PCR) - Final RSV B 07/19/23 01:30 Nasal Secretion MRSA (PCR) - Final 07/19/23 03:03 Urine, Clean Catch Legionella Antigen - Final Legionella Antigen 07/19/23 03:03 Urine, Clean Catch Streptococcus pneumoniae Antigen (M - Final 07/18/23 22:44 Mucosa - Nose SARS-CoV-2, Influenza & RSV (PCR) - Final RSV Physical Exam Const alert, oriented x3, no apparent distress and well nourished Constitutional Narrative: Overweight, upper middle-aged, white male, sitting up in a chair at the bedside, currently on supplemental oxygen at 2 L and appears comfortable, at bedside, does not appear toxic at this point and currently looks comfortable HEENT head/scalp atraumatic and moist oral mucous membranes Head and Scalp: normocephalic Resp normal respiratory effort, no retractions, no use of accessory muscles and clear to auscultation bilaterally Auscultation: Negative for rales, rhonchi or wheezes Cardio regular rate, regular rhythm, S1 normal heart sound, S2 normal heart sound, no murmurs, no rub, no gallops and no clicks GI normal to inspection, nondistended, normoactive bowel sounds, soft to palpation and non-tender Extremity Extremity Narrative: Trace to 1+ bilateral extremity lower and upper pitting edema, no cyanosis or clubbing Neuro oriented x3, moves all extremities and no focal motor deficits Speech: speech normal Psych affect normal Psych Narrative: Very pleasant, interacts appropriately Assessment & Plan Assessment/Plan (1) Sepsis without septic shock: (2) Urinary retention: (3) Elevated transaminase level: (4) RSV infection: (5) Legionella pneumonia: (6) Acute hypoxic respiratory failure: PLAN: Plan Acute hypoxic respiratory failure secondary to Legionella/group C strep/RSV pneumonia -Continue supportive care for RSV -Lung exam was fairly unremarkable today -Continue as needed albuterol -Continue scheduled ipratropium -Continue levofloxacin day 9 --> with stop time later today -Will diurese and see if we can optimize his lung function some with diuresis and wean oxygen as able -Currently on 2 to 3 L nasal cannula -Continue Mucinex -Will obtain ambulatory pulse ox prior to discharge Sepsis secondary to RSV/Legionella/group C strep pneumonia -Sepsis resolved Leukocytosis -Remains elevated but stable -clinically improving -Had been on steroids but this has since been discontinued -Will continue to monitor CBC Acute urinary tension/BPH with obstruction -Was seen by urology and recommended continuing Garcia as an outpatient with urology follow-up -Continue increased dose of Flomax 0.4 mg p.o. twice daily -Will refer to see Dr. River at discharge as patient intends to stay in the area for some time -Renal ultrasound with no evidence of hydronephrosis Transaminitis -Had been trending down -Will repeat in a.m. to reassess however I suspect related to acute infections as above -Liver ultrasound performed and demonstrated hepatomegaly with hepatic steatosis Diarrhea -Since resolved -C. difficile was negative Mild anemia -Hemoglobin is stable at 12.1 -Continue to monitor Hyponatremia -Resolved -likely related to Legionella infection Hypokalemia -Resolved -Repeat BMP in a.m. Hypertension -Continue home amlodipine -Continue home losartan History of atrial fibrillation -Previous ablation -Was previously on medication for rate control as well as oral anticoagulation but off both since ablation -No signs of A-fib on telemetry ED -Restart tadalafil at discharge DVT prophylaxis -Continue subcu heparin CODE STATUS -full code Charges/Coding Visit Charges Inpatient E&M: 45657 Subs Hosp L2
[2023-07-27] MEDS: levoFLOXacin IV 750 MG/150 ML BAG 100 MG IV (21:32)
[2023-07-28] VITALS (9 sets, daily range): BP systolic 111–131; BP diastolic 64–70; PULSE 77–105; RESP 16–20; TEMP 36.3–36.6; O2SAT 92–97; BMI 28.2
[2023-07-28] MEDS: Ipratropium/Albuterol Sulfate 3 ML AMPUL.NEB INHALATION ×3 (07:43→14:49)
[2023-07-28 08:37] LABS: Absolute Lymphocyte Count 1.34 X10^3/uL (0.83-4.51); Absolute Neutrophil Count 12.4 X10^3/uL (2.0-7.7); Basophil# 0.07 X10^3/uL; Basophil% 0.5 % (0-1); Eosinophil# 0.09 X10^3/uL; Eosinophils% 0.6 % (0-5); Lymphocyte # 1.34 X10^3/ul (0.83-4.51); Lymphocyte % 8.9 % (19-41); Mean Corp Hgb Conc 32.5 g/dL (32-36); Mean Corpuscular Hgb 32.2 pg (27.0-32.0); Mean Platelet Vol. 9.3 fl (6.2-12.0); Monocyte# 0.58 X10^3/uL; Monocyte% 3.9 % (0-10); NRBC Flagged by Analyzer 0 % (0-5); Neutrophil # 12.44 X10^3/uL (2.7-7.7); Neutrophil % 82.5 % (47-70); Platelet Count 322 K/mm3 (150-450); RBC Distribution Width CV 13.2 % (11.6-14.6); RBC Distribution Width SD 47.8 fl (35.1-43.9); Red Blood Count 4.04 M/mm3 (4.6-6.2); White Blood Count 15.1 K/mm3 (4.4-11.0)
[2023-07-28 08:44] LABS: ALB/GLOB Ratio 0.5 RATIO (0.9-2.4); AST(SGOT) 29 U/L (15-37); Alanine Aminotransfer ALT/SGPT 99 U/L (16-61); Albumin, Serum 1.9 g/dL (3.2-5.0); Alkaline Phosphatase 115 U/L (45-117); Anion Gap 5 (5-15); BUN 24 mg/dL (7-18); BUN/Creat Ratio 34.7 RATIO (10-20); Calcium,Total 8.2 mg/dL (8.5-10.1); Chloride 101 mmol/L (98-107); Creatinine, Serum 0.69 mg/dL (0.70-1.30); EST Glomerular Filtration Rate 121 mL/min (>60); Est Glom Filt Rate - Afr Amer 146 mL/min (>60); Estimated Creatinine Clearance 102.33 ml/min; Globulin 4.2 g/dL (2.2-4.2); Glucose 130 mg/dL (74-106); Magnesium 2.5 mg/dL (1.6-2.6); Potassium 4.5 mmol/L (3.5-5.1); Protein, Total 6.1 g/dL (6.4-8.2); Sodium Level 135 mmol/L (136-145)
[2023-07-28 09:29] LABS: Phosphorus 4.1 mg/dL (2.5-4.9)
[2023-07-28] MEDS: Furosemide 40 MG/4 ML Vial IV (10:33)
[2023-07-28] MEDS: Ensure Plus High Protein 120 ML LIQUID PO (10:34)
[2023-07-28] MEDS: Tamsulosin HCl 0.4 MG Capsule PO (10:34)
[2023-07-28] MEDS: guaiFENesin 1,200 MG Tablet 1200 MG PO (10:34)
[2023-07-28] MEDS: amLODIPine 10 MG Tablet PO (10:40)
[2023-07-28] MEDS: Losartan Potassium 50 MG Tablet PO (10:40)
--- NOTE | 2023-07-28 10:40 | CASEMGMT ---
Discharge Planning A list of?HH providers including quality and resource use data and consistent with the patient's preferred geographic region, medical needs, and insurance network was created in [employer] Guide.? This list was provided to the RN AYAH. Melody Mckoy, Discharge Planning Asst.
[2023-07-28] MEDS: Heparin Injection (Vial) 5,000 UNIT/ML VIAL 5000 UNIT SC (10:41)
--- NOTE | 2023-07-28 11:20 | CASEMGMT ---
Addendum entered by Gena Taylor 07/28/23 14:26: RN AYAH received call back from [facility] and they are able to accept patient with start of care for tomorrow. RUTH POON in to updated patient and . Patient and had no further questions or concerns. Original Note: RN AYAH in to discuss needs at discharge. is concerned regarding freeman care and is requesting C. RN AYAH provided patient with list of HHC agencies and prefers [facility]. RN CM made referral to [facility], awaiting acceptance. RN CM discussed DME at discharge. Walking oxygen test performed and patient does not qualify for home oxygen at discharge. concerned regarding checking pulse ox and pulse ox provided to patient to monitor at discharge. Patient would like walker at discharge and prefers [employer] for DME. states she would like patient to establish with PCP in [place], list provided. RUTH POON updated patient and that it could take 2-3 months to get appt to establish with PCP. RN CM discussed [facility] and are agreeable to appt for follow-up, community dietitian updated to schedule appt. Patient and had no further questions or concerns. Script received for walker and sent to [employer] via [employer]. RUTH POON provided walker from [employer] stock to patient.
--- NOTE | 2023-07-28 12:48 | PCM.DC.SUM ---
Providers Date of Admission: 07/19/23 Date of Discharge: 07/28/23 Primary Care Physician: EVERARDO COVARRUBIAS Consultations 07/19/23 03:05 Consult: Pathology Lab Technician / Pulmonary Medicine Routine Consulting Provider: Intensivists/Pulmonary Med Reason for Consult: acute resp failure, severe pneumonia EMERGENT Consult: No Notified: Yes Date Notified: 07/19/23 Time Notified: 03:05 Method of Notification: Text Method of Consult:: Telemedicine 07/23/23 09:49 Consult: Infectious Disease Routine Consulting Provider: Clemente Braun Reason for Consult: Legionella PNA EMERGENT Consult: No Notified: Yes Date Notified: 07/23/23 Time Notified: 12:27 Method of Notification: Text 07/27/23 02:28 Consult: Urology Routine Consulting Provider: Aaron River Reason for Consult: Urinary retention, family requesting. EMERGENT Consult: No MD Notified: Yes Date Notified: 07/27/23 Time Notified: 07:00 Method of Notification: Text Reason For Visit: ACUTE HYPOXIC RESPIRATORY FAILURE 2NDARY TO PNEU Diagnosis Discharge Diagnosis (1) Sepsis without septic shock: Status: Acute Code(s): A41.9 - Sepsis, unspecified organism (2) Urinary retention: Status: Acute Code(s): R33.9 - Retention of urine, unspecified (3) Elevated transaminase level: Status: Acute Code(s): R74.01 - Elevation of levels of liver transaminase levels (4) RSV infection: Status: Acute Code(s): B33.8 - Other specified viral diseases (5) Legionella pneumonia: Status: Acute Code(s): A48.1 - Legionnaires' disease (6) Acute hypoxic respiratory failure: Status: Acute Code(s): J96.01 - Acute respiratory failure with hypoxia Plan A Medications at Discharge Home Medications tamsulosin 0.4 mg capsule 0.4 mg PO BID urination 06/05/16 amlodipine 10 mg tablet 10 mg PO DAILY BP 07/18/23 losartan 50 mg tablet 50 mg PO DAILY BP 07/18/23 tadalafil 20 mg tablet 20 mg PO DAILY PRN BPH 07/18/23 Hospital Course Operations None Procedures EKG and - (Garcia catheter placement/CTA chest/renal ultrasound/right upper quadrant ultrasound/chest x-ray) Summary of Care Provided Minutes Spent on Discharge: 45 Hospital Course: Mr. Webster is a 68-year-old white male who presented to the emergency department at [facility] on 07/19/2023 with worsening shortness of breath and fatigue. Patient reported that he was in generally good health at baseline and recently had returned from [place] for vacation by plane. He and his both had been experiencing upper respiratory infections for a few days after arriving back here and he had spontaneous improvement but continued to have worsening congestion and cough. He was seen by an urgent care a few days prior to presentation and had a negative COVID and flu test there. He was started on Mucinex and sent home however, his symptoms worsen and he developed mild fevers with worsening shortness of breath especially noted with exertion so he came to the emergency department for further evaluation. Vital signs on presentation showed a temperature of 98.5, heart rate 102, respiratory rate is 18, blood pressure was 159/58 and oxygen saturations were 85% on room air. He was placed on a nonrebreather with improvement to his oxygen saturations to 93%. Nonrebreather was at 15 L. Eventually require transition to heated high flow nasal cannula. In the emergency department he tested positive for RSV and his Legionella antigen was found to be positive. He had significant urinary retention and required Garcia placement. He does have previous history of BPH and is on Flomax daily. CTA of the chest showed significant bilateral pneumonia and severe airspace disease but was negative for PE. Given his respiratory distress on presentation he was admitted to the ICU and the director television news was consulted. He was initially placed on broad-spectrum antibiotics and upon result of his Legionella antigen positivity he was transitioned to levofloxacin. All other cultures were found to be negative. He required Airvo for some time and we eventually were able to wean his oxygen to currently 2 to 3 L. An echocardiogram was done due to his persistent hypoxia which demonstrated EF of 60%, no diastolic dysfunction, trivial mitral valve insufficiency and mild left atrial enlargement. He was treated with supportive care for his RSV and antibiotics for his legionnaires disease/group C strep pneumonia. Source of his legionnaires disease is unclear. His Garcia was removed and unfortunately he had urinary retention. His Garcia was replaced and urology was consulted. His Flomax was increased to 0.4 mg p.o. twice daily and Dr. River recommended follow-up with his urologist in [place] however the patient is not returning to [place] for some time so we have set up follow-up with Dr. River on 08/03/2023. He is to be discharged home with a Garcia catheter and increased dose of Flomax for the time being. With regards to his pneumonia his antibiotics were completed for total of a 10-day course given the Legionella the day prior to his discharge. He did receive a significant amount of fluid and had a little bit of edema so we did give him some diuretics which improved his edema in October so optimized his lung function as he was not requiring oxygen at rest or with exertion at the time of discharge. He was provided a pulse oximeter and told that if his oxygen saturations dropping consistently stay at 88 or below he needs to be reevaluated. I have also asked him to continue utilizing his incentive spirometer and Acapella at least 3-4 times a day 10 times a piece slowly after discharge and we have arranged pulmonary medicine follow-up which will take place in October. The patient was doing quite well at the time of discharge. He will need some physical and Occupational Therapy after discharge so home health is being set up and they can help with reassurance to his family and ongoing Garcia catheter care as well. Patient was discharged home in stable condition on 07/28/2023. Since he does not have a local primary care physician and it will likely take some time to establish a new PCP, I have asked him to follow-up at the [facility] for hospital follow-up in the next 7 to 10 days. He will need an outpatient basic metabolic profile and a CBC at that time. Discharge diagnoses: Acute hypoxic respiratory failure-resolved Legionella pneumonia Group C strep pneumonia RSV viral pneumonia Sepsis secondary to the above Leukocytosis Acute urinary retention BPH with obstruction Transaminitis-resolved Diarrhea-resolved Hyponatremia-resolved Hypokalemia-resolved Hypertension History of atrial fibrillation Erectile dysfunction Physical Exam Const alert, oriented x3, no apparent distress, no limitations and well nourished Constitutional Narrative: Overweight, upper middle-aged, white male, sitting up in a chair at the bedside, on room air with sats at 97% at rest, appears comfortable, nontoxic, and nursing at bedside, classification case manager at bedside General Appearance: cooperative, comfortable, well kempt and well developed Orientation / Consciousness: awake, oriented to person, oriented to place and oriented to time Exam Limitations: no limitations Nutritional Appearance: overweight HEENT normocephalic, head/scalp atraumatic, hearing grossly normal bilaterally and moist oral mucous membranes HEENT Narrative: Mallampati 2-3, no thrush Eyes PERRL, EOMs intact bilaterally and conjunctivae normal Eyes Narrative: No scleral icterus Neck no lymphadenopathy and supple Neck Narrative: Trachea midline, no thyroid enlargement Resp normal respiratory effort, no retractions, no use of accessory muscles and clear to auscultation bilaterally Auscultation: Negative for rales, rhonchi or wheezes Cardio regular rate, regular rhythm, S1 normal heart sound, S2 normal heart sound, no murmurs, no rub, no gallops and no clicks GI normal to inspection, nondistended, normoactive bowel sounds, soft to palpation and non-tender Narrative: Garcia in place with clear appearing urine Extremity no clubbing, cyanosis or edema Extremity Narrative: Trace bilateral lower extremity edema that is pitting, no cyanosis or clubbing Skin no rashes or lesions noted, no wounds, skin turgor normal and no jaundice Neuro oriented x3, CN's II-XII intact bilaterally, moves all extremities and no focal motor deficits Neuro Narrative: Generalized weakness noted proximal greater than distal due to acute illness but no focal deficits Speech: speech normal Motor Exam: general weakness Psych mental status grossly normal, thought process normal, cooperative and affect normal Psych Narrative: Very pleasant, interacts appropriately Appearance: appropriate Weight / BMI Weight Weight: 91.7 kg Body Mass Index (BMI) 28.2 ABG / Lab / Microbiology Data 07/28/23 07:28 07/28/23 07:28 Laboratory: Laboratory Results - last 24 hr 07/28/23 07:28: WBC 15.1 H, RBC 4.04 L, Hgb 13.0, Hct 40.0, MCV 99.0 H, MCH 32.2 H, MCHC 32.5, RDW Std Deviation 47.8 H, RDW Coeff of Jose F 13.2, Plt Count 322, MPV 9.3, Immature Gran % (Auto) 3.600 H, Neut % (Auto) 82.5 H, Lymph % (Auto) 8.9 L, [place] % (Auto) 3.9, Eos % (Auto) 0.6, Baso % (Auto) 0.5, Absolute Neuts (auto) 12.4 H, Absolute Lymphs (auto) 1.34, Nucleated RBC % 0, Sodium 135 L, Potassium 4.5, Chloride 101, Carbon Dioxide 29.0, Anion Gap 5, BUN 24 H, Creatinine 0.69 L, Estim Creat Clear Calc 102.33, Est GFR (MDRD) Af Amer 146, Est GFR (MDRD) Non-Af 121, BUN/Creatinine Ratio 34.7 H, Glucose 130 H, Calcium 8.2 L, Phosphorus 4.1, Magnesium 2.5, Total Bilirubin 0.70, AST 29, ALT 99 H, Alkaline Phosphatase 115, Total Protein 6.1 L, Albumin 1.9 L, Globulin 4.2, Albumin/Globulin Ratio 0.5 L Microbiology: Microbiology 07/24/23 11:55 Stool Clostridioides difficile (PCR) - Final 07/18/23 22:44 Blood Culture (Wb) - Left Forearm Blood Culture - Final No growth in 5 days. 07/18/23 22:11 Blood Culture (Wb) - Anticubital Right Blood Culture - Final No growth in 5 days. 07/19/23 02:48 Sputum, Expectorated/Coughed Gram Stain - Final 07/19/23 02:48 Sputum, Expectorated/Coughed Respiratory Culture - Final Streptococcus group C 07/18/23 22:44 Mucosa - Nasopharyngeal Respiratory Panel (PCR) - Final RSV B 07/19/23 01:30 Nasal Secretion MRSA (PCR) - Final 07/19/23 03:03 Urine, Clean Catch Legionella Antigen - Final Legionella Antigen 07/19/23 03:03 Urine, Clean Catch Streptococcus pneumoniae Antigen (M - Final 07/18/23 22:44 Mucosa - Nose SARS-CoV-2, Influenza & RSV (PCR) - Final RSV D/C Instructions Discharge Diet: Low fat / Low cholesterol Discharge Activity: Return to Normal Activity Meaningful Use Info Meaningful Use Meaningful Use Diagnoses (Choose all that apply): None applicable Ischemic Stroke Statin Dosing Therapy Reference: STATIN DOSE THERAPY REFERENCE: * Patients > 75 years receive moderate or high dose statin therapy. * Patients 75 years or YOUNGER should receive HIGH intensity statin dose unless contraindicated. You will be required to document reason for non-treatment if statin daily dose does not meet guidelines. HIGH DOSE STATIN THERAPY DAILY Atorvastatin > than or = to 40 mg Rosuvastatin > than or = to 20 mg Amlodipine + Atorvastatin > than or = to 2.5/40 mg Ezetimibe + Simvastatin 10/80 mg Simvastatin 80mg Discharge Plan Admission Admit Date/Time: 07/19/23 00:27 Primary Reason for Your Visit: Shortness of breath/fatigue Attending Provider: Audrey Love Primary Care Provider: EVERARDO COVARRUBIAS Consulting Providers: Geraldo Jackson; Jorge Rhoades; Clemente Braun; Aaron River; Marta Loaiza Instructions Additional Instructions / Restrictions: 1. You did not require any oxygen at rest or with exertion at the time of discharge. Check pulse ox periodically and if consistently less than 88% during the day then please be reevaluated. 2. Please follow-up with urology as noted below and maintain Garcia until that point in time. 3. Please follow-up at the [facility] clinic within the next week to 10 days for follow-up labs and hospital follow-up until you can establish with a new primary care physician. 4. Please continue to use your incentive spirometer and Acapella 3-4 times daily 10 times each slowly. 5. You will need a follow-up complete blood count and a basic metabolic profile in the next 7 to 10 days. This can be ordered at the [facility] at your hospital follow-up Discharge Orders/Prescriptions Prescriptions: Continued tamsulosin 0.4 MG capsule 0.4 mg PO BID losartan 50 mg tablet 50 mg PO DAILY amlodipine 10 mg tablet 10 mg PO DAILY tadalafil 20 mg tablet 20 mg PO DAILY PRN (Reason: BPH) Referrals / Follow Up: EVERARDO COVARRUBIAS [Other] (Follow-up after returning to [place]) Aaron River MD [Med Staff - Active Staff] - 08/03/23 2:00 pm Brooklyn Cowan [Non-Staff] - See Referral Note (Week to 10 days) Xi Aguilar NP, SOLUTION DESIGN AND ANALYSIS MANAGER-C [Med Staff - Adv Practice Prof] - 11/02/23 8:15 am Disposition Disposition (needs filled in before D/C Order can be placed): Home Health Service Charges/Coding Visit Charges Inpatient E&M: 62870 Disch Hosp >30min
--- NOTE | 2023-07-28 13:41 | PHA.DC.MR.R ---
Pharm[facility] [place] Med Reconciliation Pharmacy Service has performed discharge medication reconciliation for this patient. The patient's discharge medication list was reviewed for discrepancies and discrepancies were resolved. Medications at Discharge Home Medications tamsulosin 0.4 mg capsule 0.4 mg PO BID urination 06/05/16 amlodipine 10 mg tablet 10 mg PO DAILY BP 07/18/23 losartan 50 mg tablet 50 mg PO DAILY BP 07/18/23 tadalafil 20 mg tablet 20 mg PO DAILY PRN BPH 07/18/23
== END 2023-07-28 16:32 | disposition home health service (06) | DRG 871 ==
LOC: ED 07-19 00:21 → ICU 07-19 00:39 → PCU 07-24 12:57
PROVIDERS: Family Medicine; Internal Medicine Critical Care Medicine; Student in an Organized Health Care Education/Training Program; Admitting Provider Hospitalist; Emergency Provider Emergency Medicine; Visit Provider Internal Medicine
DX: A40.8 Other streptococcal sepsis (principal); J96.21 Acute and chronic respiratory failure with hypoxia; A48.1 Legionnaires' disease; J12.1 Respiratory syncytial virus pneumonia; E87.1 Hypo-osmolality and hyponatremia; N13.8 Other obstructive and reflux uropathy; I10 Essential (primary) hypertension; E87.6 Hypokalemia; E78.5 Hyperlipidemia, unspecified; R19.7 Diarrhea, unspecified; R74.01 Elevation of levels of liver transaminase levels; N40.1 Benign prostatic hyperplasia with lower urinary tract symptoms; R33.8 Other retention of urine; N52.9 Male erectile dysfunction, unspecified; N28.1 Cyst of kidney, acquired; Z11.52 Encounter for screening for COVID-19; Z79.890 Hormone replacement therapy; Z87.891 Personal history of nicotine dependence; R31.0 Gross hematuria
CPT/HCPCS: 36415; 71045; 71275; 76705; 76770; 80048; 80053; 80076; 81001; 83605; 83735; 83880; 83930; 83935; 84100; 84145; 84300; 85025; 85610; 85730; 87040; 87070; 87077; 87205; 87449; 87493; 87631; 87633; 87641; 93005; 93306; 94002; 94003; 94640; 94660; 94667; 94668; 94762; 97110; 97116; 97163; 97165; 97530; 97535; 99285; J7030; J7040; Q9957; Q9967; A4216; C8929; J1940

== ENCOUNTER 2023-08-07 16:00 | Outpatient (RCR) | payer MEDICARE, OTHER, SELFPAY ==
[2023-08-07 16:38] LABS: Hematocrit 36.6 % (40-54); Hemoglobin 11.5 g/dL (13.0-16.5); Mean Corp Hgb Conc 31.4 g/dL (32-36); Mean Corpuscular Hgb 31.9 pg (27.0-32.0); Mean Corpuscular Volume 101.4 fL (80-94); Mean Platelet Vol. 9.4 fl (6.2-12.0); Platelet Count 261 K/mm3 (150-450); RBC Distribution Width SD 48.4 fl (35.1-43.9); Red Blood Count 3.61 M/mm3 (4.6-6.2); White Blood Count 11.7 K/mm3 (4.4-11.0)
[2023-08-07 17:45] LABS: Anion Gap 10 (5-15); BUN 8 mg/dL (7-18); BUN/Creat Ratio 13.7 RATIO (10-20); Calcium,Total 7.8 mg/dL (8.5-10.1); Chloride 103 mmol/L (98-107); Creatinine, Serum 0.58 mg/dL (0.70-1.30); EST Glomerular Filtration Rate 147 mL/min (>60); Est Glom Filt Rate - Afr Amer 178 mL/min (>60); Glucose 57 mg/dL (74-106); Sodium Level 136 mmol/L (136-145)
== END 2023-08-21 23:59 ==
LOC: HHLAB 16:00
DX: J06.9 Acute upper respiratory infection, unspecified (principal); B97.4 Respiratory syncytial virus as the cause of diseases classified elsewhere; N40.1 Benign prostatic hyperplasia with lower urinary tract symptoms; R33.8 Other retention of urine
CPT/HCPCS: 80048; 85027

== ENCOUNTER → 2024-01-25 | Outpatient (CLI) | payer MEDICARE, OTHER, SELFPAY | END | disposition home or self-care (01) | LOC: PSN 12:47 | PROVIDERS: PCP Internal Medicine; Referring Provider Nurse Practitioner Acute Care; Visit Provider Nurse Practitioner Acute Care | DX: R06.02 Shortness of breath (principal) | CPT/HCPCS: 94060; 94726; 94729 ==

== ENCOUNTER → 2024-02-02 | Outpatient (CLI) | payer MEDICARE, OTHER, SELFPAY ==
[2024-02-02 12:48] VITALS: PULSE 101; PULSE 111; PULSE 67; PULSE 70; PULSE 96; PULSE 97; PULSE 98; O2SAT 95; O2SAT 96; O2SAT 97; O2SAT 98
== END | disposition home or self-care (01) ==
LOC: PSN 12:21
PROVIDERS: PCP Internal Medicine; Referring Provider Nurse Practitioner Acute Care; Visit Provider Nurse Practitioner Acute Care
DX: R06.02 Shortness of breath (principal)
CPT/HCPCS: 94618